=== PATIENT | male | born 1995 | race Caucasian/White ===

== ENCOUNTER 2018-01-03 21:32 | Emergency (ER) | payer SELFPAY ==
--- OUTSIDE RECORDS SUMMARY | 2018-01-03 21:35 | XMS REPORT | Clinical Summary ---
:1995 Author Organization [facility] Address [address] [place] [id number] Care Team Providers Name Role Phone Asked, No Pcp Primary Care Provider Unavailable Allergies No Known Allergies Current Medications Prescription Sig. Disp. Refills Start Date End Date Status sulfamethoxazole-tri Take 1 tablet by 14 tablet 0 10/21/2017 10/28/2017 methoprim (BACTRIM mouth every 12 DS) 800-160 mg per (twelve) hours tabletIndications: for 7 days Skin and Skin Indications: Skin Structure Infection and Skin Structure Infection. sertraline (ZOLOFT) Take 1 tablet 30 tablet 0 10/22/2017 11/21/2017 100 MG (100 mg total) by tabletIndications: mouth daily for Anxiety with 30 days Depression Indications: Anxiety with Depression. 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 10/19/2017 - Hospital Encounter Psychiatry Alexei Felix MD 10/21/2017 Jayesh Alford MD after 01/02/2017 Social History Tobacco Use Types Packs/Day Years Used Date Former Smoker Cigarettes Quit: 10/19/2016 Smokeless Tobacco: Never Used Tobacco Cessation: Counseling Given: No Alcohol Use Drinks/Week oz/Week Comments Yes 5 Cans of beer 3.0 daily Sex Assigned at Date Recorded Not on file Last Filed Vital Signs Vital Sign Reading Time Taken Blood Pressure 134/79 10/21/2017 6:15 AM 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 Pulse 79 10/21/2017 6:15 AM 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 Temperature 36.3 C (97.3 F) 10/21/2017 6:15 AM 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 Respiratory Rate 18 10/21/2017 6:15 AM 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 Oxygen Saturation 99% 10/21/2017 6:15 AM 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 Inhaled Oxygen Concentration - - Weight 64.2 kg (141 lb 8 oz) 10/19/2017 12:24 PM 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 Height 188 cm (6' 2") 10/19/2017 12:24 PM 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 Body Mass Index 18.17 10/19/2017 12:24 PM 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 Plan of Treatment Not on file Procedures Procedure Name Priority Date/Time Associated Diagnosis Comments CONSULT TO OSTOMY CARE Routine 10/20/2017 12:56 PM 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 NURSE after 01/02/2017 Results CBC with platelet and differential (10/20/2017 5:00 AM) Component Value Ref Range WBC 9.71 4.50 - 11.00 k/uL RBC 4.72 4.40 - 6.00 m/uL HGB 14.0 14.0 - 18.0 g/dL HCT 40.8 (L) 41.0 - 51.0 % MCV 86.4 82.0 - 100.0 fL MCH 29.7 27.0 - 34.0 pg MCHC 34.3 31.0 - 37.0 g/dL RDW - SD 40.1 37.0 - 55.0 fL MPV 11.9 8.8 - 13.2 fL Platelet count 179 150 - 400 k/uL Nucleated RBC 0.00 /100 WBC Neutrophils 52.6 39.0 - 69.0 % Lymphocytes 36.6 25.0 - 45.0 % Monocytes 9.2 0.0 - 10.0 % Eosinophils 1.1 0.0 - 5.0 % Basophils 0.4 0.0 - 1.0 % Immature granulocytes 0.1Comment: "Immature granulocytes" 0.0 - 1.0 % (promyelocytes, myelocytes, metamyelocytes) Specimen Performing Laboratory Blood [facility] DEPARTMENT OF PATHOLOGY AND GENOMIC MEDICINE [address] [place] [id number] Hemoglobin A1c (10/20/2017 5:00 AM) Component Value Ref Range Hemoglobin A1C 5.4 4.0 - 5.6 % Comment: HbA1c cutoffs for diagnosing diabetes: 4.0% - 5.6%=normal 5.7% - 6.4%=increased risk for diabetes (prediabetes) >=6.5%=diabetes Goals for glycemic control (ADA 2016) < 7.0%Target for non adults with diabetes. More or less stringent targets may be appropriate for individual patients. <7.5% Target for Children and adolescents with type 1 diabetes. A hemoglobin variant peak was detected in the A1c HPLC study. This peak did not seem to interfere with the A1c percentage calculation. However, if clinically indicated, hemoglobin electrophoresis should be ordered to further evaluate this finding. This variant may impact the red blood cell turnover rate. The clinical utility of Hemoglobin A1c measurement for monitoring long-term glucose control in the setting of hemoglobin variants has not been well characterized. Specimen Performing Laboratory Blood [facility] DEPARTMENT OF PATHOLOGY AND [address] [address] Estimated GFR (10/20/2017 4:00 AM) Component Value Ref Range GFR Non Af Amer 75 mL/min/1.73 m2 GFR Af Amer >90 mL/min/1.73 m2 Comment: Chronic kidney disease: <60 mL/min/1.73m2 Kidney failure: <15 mL/min/1.73m2 The estimated GFR is calculated from the IDMS-traceable Modification of Diet in Renal Disease Equation. The accuracy of the calculation is poor when the creatinine is normal. Calculated values >90 mL/min/1.73m2 are not reported. This equation has not been validated in children (<18 years), women, the elderly (>70 years), or ethnic groups other than Caucasians and Americans. Specimen Performing Laboratory Plasma specimen [facility] DEPARTMENT OF PATHOLOGY AND [address] [address] Thyroid stimulating hormone (10/20/2017 4:00 AM) Component Value Ref Range TSH 1.79 0.27 - 4.20 uIU/mL Specimen Performing Laboratory Plasma specimen [facility] DEPARTMENT OF PATHOLOGY AND [facility] MEDICINE [address] [place] [id number] Alcohol level, blood (10/20/2017 4:00 AM) Component Value Ref Range Alcohol None Detected mg/dL Comment: Normal None Detected Legal Intoxication in [place]80 mg/dL (0.08%) - Whole Blood Toxic Jedzdjuncrtpk307 mg/dL (0.2%) Potentially Ijgdx324 - 500 mg/dL (0.35 - 0.5%) Alcohol percent None Detected % Specimen Performing Laboratory Plasma specimen [facility] DEPARTMENT OF PATHOLOGY AND [address] [address] Lipid panel (10/20/2017 4:00 AM) Component Value Ref Range Cholesterol 126 <200 mg/dL Triglycerides 71 <150 mg/dL HDL cholesterol 66 >40 mg/dL LDL cholesterol 64Comment: Result obtained by direct LDL <100 mg/dL measurement Lipid panel interpretation SeeBelow Comment: Total Cholesterol (mg/dL) <200 Desirable 309-239Gcjoraoamd-zbtg >=240High Triglycerides (mg/dL) <150 Normal 130-207Syuenrhymw-rsxx 200-499High >=500Very high HDL Cholesterol (mg/dL) <40Low (male) <40Low (female) LDL Cholesterol (mg/dL) <100 Optimal 100-129Near or above optimal [phone]-iiej 160-189High >=190Very high Risk Catergories that modify LDL goals. Risk CatergoriesLDL goal (mg/dL) CHD and CHD risk equivalent<100 (10-year risk >20%) Multiple (2+) risk factors <130 (10-year risk=<20%) 0-1 risk factors <160 (<10-year risk) Defining levels of lipids in metabolic syndrome Triglycerides>=150 mg/dL HDL Cholesterol Men<40 mg/dL Women<40 mg/dL Non-HDL cholesterol is a second target for therapy in persons with high triglycerides (>=200 mg/dL) Specimen Performing Laboratory Plasma specimen [facility] DEPARTMENT OF PATHOLOGY AND GENOMIC MEDICINE [address] [place] [address] Comprehensive metabolic panel (10/20/2017 4:00 AM) Component Value Ref Range Sodium 141 135 - 148 mEq/L Potassium 3.9 3.5 - 5.0 mEq/L Chloride 101 98 - 112 mEq/L CO2 27 24 - 31 mEq/L Anion gap 13 7 - 15 mEq/L Comment: Starting from December , anion gap calculation no longer incorporates potassium. Please note the change. BUN 10 6 - 20 mg/dL Creatinine 1.2 0.7 - 1.2 mg/dL Glucose 102 (H) 65 - 99 mg/dL Calcium 9.7 8.3 - 10.2 mg/dL Protein 7.0 6.3 - 8.3 g/dL Comment: 4.6-7.0 g/dL 1 week 4.4-7.6 g/dL 7 months-1year5.1-7.3 g/dL 1-2 years5.6-7.5 g/dL >3 years6.0-8.0 g/dL 18-150 6.3-8.3 g/dL Albumin 4.1 3.5 - 5.0 g/dL A/G ratio 1.4 0.7 - 3.8 Alkaline phosphatase 60 40 - 129 U/L AST 20 10 - 50 U/L ALT 22 5 - 50 U/L Total bilirubin 0.9 0.0 - 1.2 mg/dL Specimen Performing Laboratory Plasma specimen [facility] DEPARTMENT OF PATHOLOGY AND GENOMIC MEDICINE [address] [place] [id number] ECG 12 lead (10/19/2017 9:58 PM) Component Value Ref Range Ventricular rate 65 Atrial rate 65 ME interval 120 QRSD interval 78 QT interval 382 QTC interval 397 QRS axis 1 43 T wave axis 28 EKG impression Normal sinus rhythm-Normal ECG-No previous ECGs available- Specimen Performing Laboratory [facility] [address] [place] [address] after 01/02/2017
--- OUTSIDE RECORDS SUMMARY | 2018-01-03 21:35 | XMS REPORT ---
:1995 [facility] Address [address] [place] [address] Care Team Providers Name Role Phone UNKNOWN, REFFERING Primary Care Provider Unavailable FLORECITA STAFFORD M.D. Unavailable Unavailable Problems This patient has no known problems. Allergies, Adverse Reactions, Alerts This patient has no known allergies or adverse reactions. Medications This patient has no known medications. Results Test Description Test Time Test Comments Text Results Atomic Results Result Comments Basic Metabolic Panel 2017-07-29 08:19:00 Test Item Value Reference Range Comments Sodium (test code=NA) 140 mmol/L 135-145 Potassium (test code=K) 3.9 mmol/L 3.5-5.1 Chloride (test code=CL) 99 mmol/L 98-105 Carbon Dioxide (test 26 mmol/L 22-29 code=CO2) Glucose (test code=GLU) 89 mg/dL 70-115 Blood Urea Nitrogen (test 14 mg/dL 6-20 code=BUN) Creatinine (test 1.3 mg/dL 0.7-1.2 code=CREAT) Calcium (test code=CA) 10.2 mg/dL 8.3-10.5 BUN/Creatinine Ratio (test 10.8 code=BCRATIO) Anion Gap (test code=AGAP) 15 mmol/L 7-16 Estimated GFR (test >60 mL/min/1.73m2 eGFR (estimated Glomerular code=GFR) Filtration Rate) is an estimated value,calculated from the patient's serum creatinine using the MDRD equation.It is NOT the patient's actual GFR. The eGFR provides a more clinicallyuseful measure of kidney disease than serum creatinine alone.This calculation takes sex and race into account, if the informationis provided. If the race is not provided, and the patient isAfrican-South Korean, multiply by 1.212. If sex is not provided, and thepatient is female, multiply by 0.742. Results for patients <18 years ofage have not been validated by the MDRD study and should be interpretedwith caution.eGFR Result Interpretation:eGFR > or=60 is in the Normal RangeeGFR < 60 may mean kidney diseaseeGFR < 15 may mean kidney failureRanges recommended by the National Kidney Foundation,http://nkdep.nih.g ov RPR, [id number] 12:15:00 Test Item Value Reference Range Comments RPR (test code=RPR) Non-Reactive Non-Reactive Lipid [id number] 11:22:00 Test Item Value Reference Range Comments Cholesterol (test 149 mg/dL 0-200 code=CHOL) Triglycerides (test 125 mg/dL 9-200 code=TRIG) HDL (test code=HDL) 51 mg/dL 40-60 Chol/HDL (test 2.9 Ratio 0.0-5.0 code=CHOLPHDL) LDL, Calculated (test 73 0-130 (NOTE)RISK OF HEART code=LDLC) DISEASEPublished by [place] Heart AssociationAnalyte Optimal Boderline Increased RiskCHOL <200 200-239 >240TRIG <150 150-199 >200HDL Male: >60 <40HDL Female: >60 <50LDL <100 130-159 >160LDL NEAR OPTIMAL IS 100-129 VLDL (test code=VLDL) 25 mg/dL 5-40 LDL/HDL (test code=LDLPHDL) 1 Thyroid Stimulating Hormone (TSH)2017-07-28 08:55:00 Test Item Value Reference Range Comments TSH (test code=TSH) 2.44 mIU/mL 0.270-4.200
[2018-01-03] MEDS ORDERED: LIDOCAINE 1% MPF 5 ML VIAL ONE (22:01)
--- NOTE | 2018-01-03 22:37 | ER ---
Nurse's Notes [facility] Name: Filiberto Barron Age: 22 yrs Sex: Male : 1995 Arrival Date: 01/03/2018 Time: 21:35 Bed 6 Private MD: Diagnosis: Laceration left calf Presentation: 01/03 21:40 Presenting complaint: Patient states: About an hour ago he tried jumping over a fence ea and got his left leg caught on the barbed wire. Transition of care: patient was not received from another setting of care. Complicating Factors: There are no complicating factors for this patient. Onset of symptoms was January 03, 2018. Initial Sepsis Screen: Does the patient meet any 2 criteria? No. Patient's initial sepsis screen is negative. Does the patient have a suspected source of infection? No. Patient's initial sepsis screen is negative. Care prior to arrival: None. 21:40 Method Of Arrival: Wheelchair ea 21:40 Acuity: FELI 3 ea Triage Assessment: 21:44 General: Appears uncomfortable, Behavior is calm, cooperative, appropriate for age. ea Pain: Complains of pain in left knee and left holt. Injury Description: Laceration sustained to left leg was sustained 1-2 hours ago. Historical: - Allergies: 21:43 No Known Allergies; ea - Home Meds: 21:43 Zoloft Oral [Active]; ea - PMHx: 21:43 Depression; ea - PSHx: 21:43 None; ea - Immunization history:: Adult Immunizations up to date, Last tetanus immunization: < 5 years ago reports he had vaccine less than 1 year ago. - Social history:: Smoking status: Patient/guardian denies using tobacco, Patient uses alcohol. Screenin:47 Abuse screen: Denies threats or abuse. Nutritional screening: No deficits noted. ea Tuberculosis screening: No symptoms or risk factors identified. Fall Risk None identified. Assessment: 21:45 General: Appears in no apparent distress. comfortable, Behavior is calm, cooperative, aa1 appropriate for age. General: Smells of alcohol. Pain: Denies pain. Neuro: Level of Consciousness is awake, alert, obeys commands, Oriented to person, place, time, situation, Moves all extremities. Full function Speech is normal. Cardiovascular: Heart tones S1 S2 present Rhythm is regular. Respiratory: Airway is patent Respiratory effort is even, unlabored, Respiratory pattern is regular, symmetrical. GI: No signs and/or symptoms were reported involving the gastrointestinal system. : No signs and/or symptoms were reported regarding the genitourinary system. EENT: No signs and/or symptoms were reported regarding the EENT system. Derm: Skin is intact, is healthy with good turgor, Skin is pink, warm \T\ dry. Musculoskeletal: Circulation, motion, and sensation intact. Capillary refill < 3 seconds, Range of motion: intact in all extremities. Injury Description: Laceration sustained to left holt is 0.5 to 2.5 cm long, bleeding moderately, was sustained 1-2 hours ago. is bleeding moderately a dressing was applied. 22:22 Reassessment: Patient appears in no apparent distress at this time. Patient and/or aa1 family updated on plan of care and expected duration. Pain level reassessed. Patient is alert, oriented x 3, equal unlabored respirations, skin warm/dry/pink. Awaiting MD for lac repair. 22:58 Reassessment: Patient and/or family updated on plan of care and expected duration. Pain ea level reassessed. Patient is alert, oriented x 3, equal unlabored respirations, skin warm/dry/pink. Discharge instructions given to patient, verbalized the understanding of instructions. Vital Signs: 20:40 BP 131 / 86; Pulse 82; Resp 18; Temp 97.9(O); Pulse Ox 100% on R/A; Weight 68.04 kg; ea Height 6 ft. 2 in. (187.96 cm); Pain 8/10; 22:00 BP 103 / 66; Pulse 61; Resp 16; Pulse Ox 98% on R/A; aa1 22:45 BP 110 / 71; Pulse 70; Resp 18; Temp 98(O); Pulse Ox 100% on R/A; Pain 3/10; ea 20:40 Body Mass Index 19.26 (68.04 kg, 187.96 cm) ea ED Course: 21:35 Patient arrived in ED. am2 21:40 Dalton Pedroza MD is Attending Physician. pkl 21:40 Patient has correct armband on for positive identification. Bed in low position. Call ea light in reach. 21:40 Arm band placed on right wrist. Patient placed in an exam room, on a stretcher, on ea pulse oximetry. 21:42 Triage completed. ea 21:55 Wound care: to laceration located on left holt was cleaned with Hibiclens, irrigated aa1 with normal saline, dressed with 4X4s, Patient tolerated well. 21:58 Cathy Sutton, RN is Primary Nurse. aa1 22:15 Patient did not have IV access during this emergency room visit. aa1 22:38 Assist provider with laceration repair on left leg Set up tray. Performed by Dalton Pedroza MD cb2 Dressed with 4X4s, Neosporin, Patient tolerated well. Administered Medications: 21:59 CANCELLED (tetanus current): Tetanus-Diphtheria Toxoid Adult 0.5 ml IM once aa1 22:15 Drug: Lidocaine (1 %) 1 application {Note: administered by provider.} Volume: 5 ml; ea Route: Infiltration; 22:45 Drug: KeFLEX 500 mg Route: PO; ea 22:50 Follow up: Response: No adverse reaction ea Outcome: 22:37 Discharge ordered by . tierney 23:02 Discharged to home ambulatory, with friend. aa1 23:02 Condition: good 23:02 Discharge instructions given to patient, friend, Instructed on discharge instructions, follow up and referral plans. medication usage, wound care, Demonstrated understanding of instructions, follow-up care, medications, wound care, Prescriptions given X 1. 23:02 Patient left the ED. aa1 Signatures: Cathy Sutton, RN RN aa1 Dalton Pedroza MD MD pkl Moreno, Amanda am2 Bulan, Christian cb2 Lily Andino RN RN ea
--- NOTE | 2018-01-03 22:38 | EDPHYS ---
Physician Documentation [facility] Name: Filiberto Barron Age: 22 yrs Sex: Male : 1995 Arrival Date: 01/03/2018 Time: 21:35 Bed 6 Private MD: ED Physician Dalton Pedroza HPI: 01/03 21:48 This 22 yrs old Male presents to ER via Wheelchair with complaints of pkl Laceration To Leg. 21:48 The patient presents with an injury, a laceration, 5 cm(s). The complaints affect the pkl left calf. Context: resulted from jumping over a fence and cut by lili wire. Onset: The symptoms/episode began/occurred just prior to arrival. Associated signs and symptoms: The patient has no apparent associated signs or symptoms. Historical: - Allergies: 21:43 No Known Allergies; ea - Home Meds: 21:43 Zoloft Oral [Active]; ea - PMHx: 21:43 Depression; ea - PSHx: 21:43 None; ea - Immunization history:: Adult Immunizations up to date, Last tetanus immunization: < 5 years ago reports he had vaccine less than 1 year ago. - Social history:: Smoking status: Patient/guardian denies using tobacco, Patient uses alcohol. ROS: 21:48 Eyes: Negative for injury, pain, redness, and discharge, ENT: Negative for injury, pkl pain, and discharge, Neck: Negative for injury, pain, and swelling, Cardiovascular: Negative for chest pain, palpitations, and edema, Respiratory: Negative for shortness of breath, cough, wheezing, and pleuritic chest pain, Abdomen/GI: Negative for abdominal pain, nausea, vomiting, diarrhea, and constipation, Back: Negative for injury and pain, : Negative for injury, bleeding, discharge, and swelling. 21:48 MS/extremity: Positive for laceration, of the left calf. 21:48 Neuro: Negative for altered mental status. 21:48 Psych: Negative for suicidal ideation. Exam: 21:48 Head/Face: Normocephalic, atraumatic. Eyes: Pupils equal round and reactive to light, pkl extra-ocular motions intact. Lids and lashes normal. Conjunctiva and sclera are non-icteric and not injected. Cornea within normal limits. Periorbital areas with no swelling, redness, or edema. ENT: Nares patent. No nasal discharge, no septal abnormalities noted. Tympanic membranes are normal and external auditory canals are clear. Oropharynx with no redness, swelling, or masses, exudates, or evidence of obstruction, uvula midline. Mucous membranes moist. Neck: Trachea midline, no thyromegaly or masses palpated, and no cervical lymphadenopathy. Supple, full range of motion without nuchal rigidity, or vertebral point tenderness. No Meningismus. Chest/axilla: Normal chest wall appearance and motion. Nontender with no deformity. No lesions are appreciated. Cardiovascular: Regular rate and rhythm with a normal S1 and S2. No gallops, murmurs, or rubs. Normal PMI, no JVD. No pulse deficits. Respiratory: Lungs have equal breath sounds bilaterally, clear to auscultation and percussion. No rales, rhonchi or wheezes noted. No increased work of breathing, no retractions or nasal flaring. Abdomen/GI: Soft, non-tender, with normal bowel sounds. No distension or tympany. No guarding or rebound. No evidence of tenderness throughout. Back: No spinal tenderness. No costovertebral tenderness. Full range of motion. Neuro: Awake and alert, GCS 15, oriented to person, place, time, and situation. Cranial nerves II-XII grossly intact. Motor strength 5/5 in all extremities. Sensory grossly intact. Cerebellar exam normal. Normal gait. 21:48 Musculoskeletal/extremity: Extremities: grossly normal except: noted in the left calf: laceration. Vital Signs: 20:40 BP 131 / 86; Pulse 82; Resp 18; Temp 97.9(O); Pulse Ox 100% on R/A; Weight 68.04 kg; ea Height 6 ft. 2 in. (187.96 cm); Pain 8/10; 22:00 BP 103 / 66; Pulse 61; Resp 16; Pulse Ox 98% on R/A; aa1 22:45 BP 110 / 71; Pulse 70; Resp 18; Temp 98(O); Pulse Ox 100% on R/A; Pain 3/10; ea 20:40 Body Mass Index 19.26 (68.04 kg, 187.96 cm) ea Laceration: 22:34 Wound Repair of 5cm ( 2.0in ) subcutaneous laceration to left calf. Minimal bleeding pkl noted.. Distal neuro/vascular/tendon intact. Anesthesia: Local anesthetic administered with 5 mls of 1% lidocaine. Wound prep: Extensive cleansing by me. Skin closed with 5 4-0 Prolene using simple sutures and sterile technique. Dressed with Bacitracin, 4x4's, pressure dressing. Patient tolerated well. MDM: 21:40 Patient medically screened. pkl 22:34 Data reviewed: vital signs, nurses notes. pkl 01/03 21:59 Order name: Suture Tray Setup; Complete Time: 22:02 aa1 Administered Medications: :59 CANCELLED (tetanus current): Tetanus-Diphtheria Toxoid Adult 0.5 ml IM once aa1 22:15 Drug: Lidocaine (1 %) 1 application {Note: administered by provider.} Volume: 5 ml; ea Route: Infiltration; 22:45 Drug: KeFLEX 500 mg Route: PO; ea 22:50 Follow up: Response: No adverse reaction ea Disposition: 01/03/18 22:37 Discharged to Home. Impression: Laceration left calf. - Condition is Stable. - Prescriptions for Keflex 500 mg Oral Capsule - take 1 capsule by ORAL route every 6 hours for 7 days; 28 capsule. - Medication Reconciliation Form, Thank You Letter, Antibiotic Education, Prescription Opioid Use form. - Follow up: Private Physician; When: 1 week; Reason: Wound Recheck, Staple/Suture removal, Re-evaluation by your physician. - Problem is new. - Symptoms have improved. Signatures: Cathy Sutton RN RN aa1 Dalton Pedroza MD MD pkLily Mason RN RN ea Corrections: (The following items were deleted from the chart) 21:47 Tetanus-Diphtheria Toxoid Adult 0.5 ml IM once ordered. pkl aa1
[2018-01-03] MEDS ORDERED: CEPHALEXIN 250 MG CAP ONE (22:43)
== END 2018-01-03 23:02 | disposition home or self-care (01) ==
LOC: ER 21:32
PROC: 0JQP0ZZ Repair Left Lower Leg Subcutaneous Tissue and Fascia, Open Approach (ICD-10-PCS; principal; 2018-01-03)
DX: S81.812A Laceration without foreign body, left lower leg, initial encounter (principal); W45.8XXA Other foreign body or object entering through skin, initial encounter; Y93.89 Activity, other specified; Y92.9 Unspecified place or not applicable; F32.9 Major depressive disorder, single episode, unspecified; Z23 Encounter for immunization
CPT/HCPCS: 99284

== ENCOUNTER 2018-01-19 15:19 | Emergency (ER) | payer SELFPAY ==
--- OUTSIDE RECORDS SUMMARY | 2018-01-19 15:21 | XMS REPORT | Clinical Summary ---
:1995 Author Organization [facility] Address [address] [place] [id number] Care Team Providers Name Role Phone Asked, [...] Type Specialty Care Team Description 10/21/2017 Documentation Club Former Shereen Ken LPC 10/19/2017 - Hospital Encounter Psychiatry Alexei Felix MD 10/21/2017 Jayesh Alford MD after 01/18/2017 Social History Tobacco Use Types Packs/Day Years Used Date Former Smoker Cigarettes Quit: 10/19/2016 Smokeless Tobacco: Never Used Tobacco Cessation: Counseling Given: No Alcohol Use Drinks/Week oz/Week Comments Yes 5 Cans of beer 3.0 daily Sex Assigned at Date Recorded Not on file Last Filed Vital Signs Vital Sign Reading Time Taken Blood Pressure 134/79 10/21/2017 6:15 AM GRAIN OPERATOR Pulse 79 10/21/2017 6:15 AM GRAIN OPERATOR Temperature 36.3 C (97.3 F) 10/21/2017 6:15 AM GRAIN OPERATOR Respiratory Rate 18 10/21/2017 6:15 AM GRAIN OPERATOR Oxygen Saturation 99% 10/21/2017 6:15 AM GRAIN OPERATOR Inhaled Oxygen Concentration - - Weight 64.2 kg (141 lb 8 oz) 10/19/2017 12:24 PM GRAIN OPERATOR Height 188 cm (6' 2") 10/19/2017 12:24 PM GRAIN OPERATOR Body Mass Index 18.17 10/19/2017 12:24 PM GRAIN OPERATOR Plan of Treatment Not on file Procedures Procedure Name Priority Date/Time Associated Diagnosis Comments CONSULT TO OSTOMY CARE Routine 10/20/2017 12:56 PM GRAIN OPERATOR NURSE after 01/18/2017 Results CBC with platelet and differential (10/20/2017 [...] (promyelocytes, myelocytes, metamyelocytes) Specimen Performing Laboratory Blood [facility] DEPARTMENT OF PATHOLOGY AND GENOMIC MEDICINE [address] [place] [id number] Hemoglobin A1c (10/20/2017 5:00 AM) Component Value [...] been well characterized. Specimen Performing Laboratory Blood [facility] DEPARTMENT OF PATHOLOGY AND [facility] MEDICINE [address] [place] [id number] Estimated GFR (10/20/2017 4:00 AM) Component Value [...] and Americans. Specimen Performing Laboratory Plasma specimen [facility] DEPARTMENT OF PATHOLOGY AND GENOMIC MEDICINE [address] [place] [id number] Thyroid stimulating hormone (10/20/2017 4:00 AM) Component Value Ref Range TSH 1.79 0.27 - 4.20 uIU/mL Specimen Performing Laboratory Plasma specimen [facility] DEPARTMENT OF PATHOLOGY AND GENOMIC MEDICINE [address] [place] [address] Alcohol level, blood (10/20/2017 4:00 AM) Component Value Ref Range Alcohol None Detected mg/dL Comment: Normal None Detected Legal Intoxication in [place]80 mg/dL (0.08%) - Whole Blood Toxic [id number] mg/dL (0.2%) Potentially [id number] - 500 mg/dL (0.35 - 0.5%) Alcohol percent None Detected % Specimen Performing Laboratory Plasma specimen [facility] DEPARTMENT OF PATHOLOGY AND GENOMIC MEDICINE [address] [place] [address]11 Lipid panel (10/20/2017 4:00 AM) Component Value Ref Range Cholesterol 126 <200 mg/dL Triglycerides 71 <150 mg/dL HDL cholesterol 66 >40 mg/dL LDL cholesterol 64Comment: Result obtained by direct LDL <100 mg/dL measurement Lipid panel interpretation SeeBelow Comment: Total Cholesterol (mg/dL) <200 Desirable 230-535Rwkxebokeh-ploi >=240High Triglycerides (mg/dL) <150 Normal [id number]-iygv 200-499High >=500Very high HDL Cholesterol (mg/dL) <40Low (male) <40Low (female) LDL Cholesterol (mg/dL) <100 Optimal 100-129Near or above optimal [phone]-jzzd 160-189High >=190Very high Risk Catergories that modify [...] (>=200 mg/dL) Specimen Performing Laboratory Plasma specimen [facility] DEPARTMENT OF PATHOLOGY AND GENOMIC MEDICINE [address] [place] [address] Comprehensive metabolic panel (10/20/2017 4:00 AM) Component [...] 1.2 mg/dL Specimen Performing Laboratory Plasma specimen [facility] DEPARTMENT OF PATHOLOGY AND GENOMIC MEDICINE [address] [place] [id number] ECG 12 lead (10/19/2017 9:58 PM) Component Value Ref Range Ventricular rate 65 Atrial rate 65 IL interval 120 QRSD interval 78 QT interval 382 QTC interval 397 QRS axis 1 43 T wave axis 28 EKG impression Normal sinus rhythm-Normal ECG-No previous ECGs available- Specimen Performing Laboratory [facility] [address] [place] [address] after 01/18/2017
--- OUTSIDE RECORDS SUMMARY | 2018-01-19 15:21 | XMS REPORT ---
:1995 [facility] Address [address] [place] [address] Care Team Providers Name Role Phone UNKNOWN, [...] (test 14 mg/dL 6-20 code=BUN) Creatinine (test code=CREAT) 1.3 mg/dL 0.7-1.2 Calcium (test code=CA) 10.2 mg/dL 8.3-10.5 BUN/Creatinine [...] race is not provided, and the patient isAfrican-Malagasy, multiply by 1.212. If sex is not provided, and thepatient is female, multiply by 0.742. Results for patients <18 years ofage have not been validated by the MDRD study and should be interpretedwith caution.eGFR Result Interpretation:eGFR > or=60 is in the Normal RangeeGFR < 60 may mean kidney diseaseeGFR < 15 may mean kidney failureRanges recommended by the National Kidney Foundation,http://nkdep.nih.go v RPR, [id number] 12:15:00 Test Item Value Reference Range Comments RPR (test code=RPR) Non-Reactive Non-Reactive Lipid [id number] 11:22:00 Test Item Value Reference Range Comments Cholesterol (test 149 mg/dL 0-200 code=CHOL) Triglycerides (test 125 mg/dL 9-200 code=TRIG) HDL (test code=HDL) 51 mg/dL 40-60 Chol/HDL (test 2.9 Ratio 0.0-5.0 code=CHOLPHDL) LDL, Calculated (test 73 0-130 (NOTE)RISK OF HEART code=LDLC) DISEASEPublished by Malagasy Heart AssociationAnalyte Optimal Boderline Increased RiskCHOL <200 200-239 >240TRIG <150 150-199 >200HDL Male: >60 <40HDL Female: >60 <50LDL <100 130-159 >160LDL NEAR OPTIMAL IS 100-129 VLDL (test code=VLDL) 25 mg/dL 5-40 LDL/HDL (test code=LDLPHDL) 1 Thyroid Stimulating Hormone (TSH)2017-07-28 08:55:00 Test Item Value Reference Range Comments TSH (test code=TSH) 2.44 mIU/mL 0.270-4.200
--- NOTE | 2018-01-19 15:43 | ER ---
Nurse's Notes [facility] Name: Filiberto Barron Age: 22 yrs Sex: Male : 1995 Arrival Date: 01/19/2018 Time: 15:22 Bed 9 Private MD: Diagnosis: Encounter for removal of sutures Presentation: 01/19 15:23 Presenting complaint: Patient states: Needs stitches to left lower leg removed. Placed aj 12 days ago. Transition of care: patient was not received from another setting of care. Onset of symptoms was December 30, 2017. Initial Sepsis Screen: Does the patient meet any 2 criteria? No. Patient's initial sepsis screen is negative. Does the patient have a suspected source of infection? No. Patient's initial sepsis screen is negative. Care prior to arrival: None. 15:23 Method Of Arrival: Ambulatory 15:23 Acuity: FELI 5 aj Triage Assessment: 15:24 General: Appears in no apparent distress. comfortable, Behavior is calm, cooperative, aj appropriate for age. Pain: Denies pain. Neuro: Level of Consciousness is awake, alert, obeys commands, Oriented to person, place, time, situation, Appropriate for age. Respiratory: Airway is patent Respiratory effort is even, unlabored, Respiratory pattern is regular, symmetrical. Derm: Skin is intact, is healthy with good turgor, Skin is pink, warm \T\ dry. normal. Injury Description: Repaired laceration. Historical: - Allergies: 15:24 No Known Allergies; aj - Home Meds: 15:24 Zoloft Oral [Active]; aj - PMHx: 15:24 Depression; suicidal ideation; aj - PSHx: 15:24 None; aj - Immunization history:: Adult Immunizations up to date. - Social history:: Smoking status: Patient/guardian denies using tobacco. Screenin:31 Abuse screen: Denies threats or abuse. Denies injuries from another. Nutritional ed1 screening: No deficits noted. Tuberculosis screening: No symptoms or risk factors identified. Fall Risk None identified. Assessment: 15:31 General: Appears in no apparent distress. Behavior is calm, cooperative. Pain: Denies ed1 pain. Neuro: Level of Consciousness is awake, alert, obeys commands, Oriented to person, place, time, situation. Cardiovascular: Denies chest pain, Heart tones S1 S2 present. Respiratory: Airway is patent Respiratory effort is even, unlabored, Respiratory pattern is regular, symmetrical, Breath sounds are clear bilaterally. GI: No signs and/or symptoms were reported involving the gastrointestinal system. : No signs and/or symptoms were reported regarding the genitourinary system. EENT: No signs and/or symptoms were reported regarding the EENT system. Derm: healed laceration with sutures in place. Musculoskeletal: Circulation, motion, and sensation intact. Range of motion: intact in all extremities. 15:31 Reassessment: I agree with assessment completed by DAVIN Ascencio . aa5 Vital Signs: 15:24 BP 138 / 81; Pulse 96; Resp 16; Temp 98.3; Pulse Ox 99% on R/A; Weight 68.04 kg; Height aj 6 ft. 0 in. (182.88 cm); 15:24 Body Mass Index 20.34 (68.04 kg, 182.88 cm) aj ED Course: 15:22 Patient arrived in ED. sb2 15:23 Triage completed. aj 15:24 Arm band placed on right wrist. Patient placed in an exam room. aj 15:29 Linnette Treviño FNP-C is PHCP. kb 15:29 Hari Shane MD is Attending Physician. kb 15:30 Silva Lema LVN is Primary Nurse. ed1 15:31 Patient has correct armband on for positive identification. Bed in low position. Call ed1 light in reach. 15:44 No provider procedures requiring assistance completed. Patient did not have IV access ed1 during this emergency room visit. Administered Medications: No medications were administered Outcome: 15:43 Discharge ordered by MD. kb 15:44 Discharged to home ambulatory. ed1 15:44 Condition: good 15:44 Discharge instructions given to Pt left before receiving discharge instructions 15:45 Patient left the ED. ed1 Signatures: Linnette Treviño FNP-C FNP-Taniya Cabrera RN RN Barbara Myrick RN RN aa5 Silva Lema LVN LVN ed1 Jessica Leon sb2
--- NOTE | 2018-01-19 15:43 | EDPHYS ---
Physician Documentation [facility] Name: Filiberto Barron Age: 22 yrs Sex: Male : 1995 Arrival Date: 01/19/2018 Time: 15:22 Bed 9 Private MD: ED Physician Hari Shane HPI: 01/19 15:38 This 22 yrs old Male presents to ER via Ambulatory with complaints of Suture kb Removal. 15:38 The patient has sutures on the left holt. Previous treatment: The patient was initially kb treated 16 day(s) ago, the care was rendered at [facility], Treatment type: The patient's original treatment included sutures. Sutures/chaparrita progress: The patient has no c/o's. The wound is well-healing with no redness, swelling, discharge, or dehiscence reported. The patient has not experienced similar symptoms in the past. The patient has been recently seen at the [facility] Emergency Department, a couple of weeks ago. Historical: - Allergies: 15:24 No Known Allergies; aj - Home Meds: 15:24 Zoloft Oral [Active]; aj - PMHx: 15:24 Depression; suicidal ideation; - PSHx: 15:24 None; aj - Immunization history:: Adult Immunizations up to date. - Social history:: Smoking status: Patient/guardian denies using tobacco. ROS: 15:38 Constitutional: Negative for fever, chills, and weight loss, Cardiovascular: Negative kb for chest pain, palpitations, and edema, Respiratory: Negative for shortness of breath, cough, wheezing, and pleuritic chest pain, Abdomen/GI: Negative for abdominal pain, nausea, vomiting, diarrhea, and constipation, MS/Extremity: Negative for injury and deformity, Neuro: Negative for headache, weakness, numbness, tingling, and seizure. 15:38 Skin: Positive for laceration(s), of the left holt. Exam: 15:38 Constitutional: This is a well developed, well nourished patient who is awake, alert, kb and in no acute distress. Head/Face: Normocephalic, atraumatic. Chest/axilla: Normal chest wall appearance and motion. Nontender with no deformity. No lesions are appreciated. Cardiovascular: Regular rate and rhythm with a normal S1 and S2. No gallops, murmurs, or rubs. Normal PMI, no JVD. No pulse deficits. Respiratory: Lungs have equal breath sounds bilaterally, clear to auscultation and percussion. No rales, rhonchi or wheezes noted. No increased work of breathing, no retractions or nasal flaring. Abdomen/GI: Soft, non-tender, with normal bowel sounds. No distension or tympany. No guarding or rebound. No evidence of tenderness throughout. MS/ Extremity: Pulses equal, no cyanosis. Neurovascular intact. Full, normal range of motion. Neuro: Awake and alert, GCS 15, oriented to person, place, time, and situation. Cranial nerves II-XII grossly intact. Motor strength 5/5 in all extremities. Sensory grossly intact. Cerebellar exam normal. Normal gait. 15:38 Skin: Wound recheck: Suture laceration closure: the wound is healing well, no evidence of dehiscence, no drainage, no erythema, no swelling. Vital Signs: 15:24 BP 138 / 81; Pulse 96; Resp 16; Temp 98.3; Pulse Ox 99% on R/A; Weight 68.04 kg; Height aj 6 ft. 0 in. (182.88 cm); 15:24 Body Mass Index 20.34 (68.04 kg, 182.88 cm) Procedures: 15:40 Suture/Staple removal: Removed 5 sutures, from left holt, site appears well healed, kb dressed with Neosporin, Patient tolerated well. MDM: 15:30 Patient medically screened. kb 15:40 Data reviewed: vital signs, nurses notes. Data interpreted: Pulse oximetry: on room air kb is 99 %. Interpretation: normal. Counseling: I had a detailed discussion with the patient and/or guardian regarding: the historical points, exam findings, and any diagnostic results supporting the discharge/admit diagnosis, the need for outpatient follow up, a family practitioner, to return to the emergency department if symptoms worsen or persist or if there are any questions or concerns that arise at home. Administered Medications: No medications were administered Disposition: 01/20 10:51 Co-signature as Attending Physician, Hari Shane MD I agree with the assessment and feliberto plan of care. Disposition: 01/19/18 15:43 Discharged to Home. Impression: Encounter for removal of sutures. - Condition is Stable. - Discharge Instructions: Suture Removal, Care After. - Medication Reconciliation Form, Thank You Letter, Antibiotic Education, Prescription Opioid Use form. - Follow up: Emergency Department; When: As needed; Reason: Worsening of condition. Follow up: Private Physician; When: 2 - 3 days; Reason: Recheck today's complaints, Continuance of care, Re-evaluation by your physician. Signatures: Linnette Treviño, ALETA-C MIXING ENGINEER-Taniya Cabrera RN RN aj Anderson, Corey, MD MD cha Riggs, Erika, PUBLIC FINANCE SPECIALIST PUBLIC FINANCE SPECIALIST ed1 Corrections: (The following items were deleted from the chart) 01/19 15:45 15:43 01/19/2018 15:43 Discharged to Home. Impression: Encounter for removal of ed1 sutures. Condition is Stable. Forms are Medication Reconciliation Form, Thank You Letter, Antibiotic Education, Prescription Opioid Use. Follow up: Emergency Department; When: As needed; Reason: Worsening of condition. Follow up: Private Physician; When: 2 - 3 days; Reason: Recheck today's complaints, Continuance of care, Re-evaluation by your physician. kb
== END 2018-01-19 15:45 | disposition home or self-care (01) ==
LOC: ER 15:19
DX: Z48.02 Encounter for removal of sutures (principal); F32.9 Major depressive disorder, single episode, unspecified
CPT/HCPCS: 99281

== ENCOUNTER 2018-05-04 20:36 | Emergency (ER) | payer SELFPAY ==
--- OUTSIDE RECORDS SUMMARY | 2018-05-04 20:38 | XMS REPORT | Clinical Summary ---
:1995 Author Organization [facility] Address [address] [place] [id number] Care Team Providers Name Role Phone Asked, [...] Type Specialty Care Team Description 10/21/2017 Documentation Collar Tacker Shereen Ken LPC 10/19/2017 - Hospital Encounter Psychiatry Alexei Felix MD 10/21/2017 Jayesh Alford MD after 05/03/2017 Social History Tobacco Use Types Packs/Day Years Used Date Former Smoker Cigarettes Quit: 10/19/2016 Smokeless Tobacco: Never Used Tobacco Cessation: Counseling Given: No Alcohol Use Drinks/Week oz/Week Comments Yes 5 Cans of beer 3.0 daily Sex Assigned at Date Recorded Not on file Last Filed Vital Signs Vital Sign Reading Time Taken Blood Pressure 134/79 10/21/2017 6:15 AM TRAFFIC MANAGER Pulse 79 10/21/2017 6:15 AM TRAFFIC MANAGER Temperature 36.3 C (97.3 F) 10/21/2017 6:15 AM TRAFFIC MANAGER Respiratory Rate 18 10/21/2017 6:15 AM TRAFFIC MANAGER Oxygen Saturation 99% 10/21/2017 6:15 AM TRAFFIC MANAGER Inhaled Oxygen Concentration - - Weight 64.2 kg (141 lb 8 oz) 10/19/2017 12:24 PM TRAFFIC MANAGER Height 188 cm (6' 2") 10/19/2017 12:24 PM TRAFFIC MANAGER Body Mass Index 18.17 10/19/2017 12:24 PM TRAFFIC MANAGER Plan of Treatment Not on file Procedures Procedure Name Priority Date/Time Associated Comments Diagnosis CONSULT TO OSTOMY CARE Routine 10/20/2017 12:56 NURSE PM TRAFFIC MANAGER HC COMPLETE BLD COUNT Routine 10/20/2017 5:00 Results for this W/AUTO DIFF AM TRAFFIC MANAGER procedure are in the results section. HEMOGLOBIN A1C Routine 10/20/2017 5:00 Results for this AM TRAFFIC MANAGER procedure are in the results section. ESTIMATED GFR Routine 10/20/2017 4:00 Results for this AM TRAFFIC MANAGER procedure are in the results section. ALCOHOL LEVEL, BLOOD Routine 10/20/2017 4:00 Results for this AM TRAFFIC MANAGER procedure are in the results section. THYROID STIMULATING Routine 10/20/2017 4:00 Results for this HORMONE AM TRAFFIC MANAGER procedure are in the results section. LIPID PANEL Routine 10/20/2017 4:00 Results for this AM TRAFFIC MANAGER procedure are in the results section. COMPREHENSIVE Routine 10/20/2017 4:00 Results for this METABOLIC PANEL AM TRAFFIC MANAGER procedure are in the results section. ECG 12-LEAD STAT 10/19/2017 9:58 Results for this PM TRAFFIC MANAGER procedure are in the results section. after 05/03/2017 Results CBC with platelet and differential (10/20/2017 5:00 AM) WBC 9.71 4.50 - 11.00 k/uL [facility] DEPARTMENT OF PATHOLOGY AND GENOMIC MEDICINE RBC 4.72 4.40 - 6.00 m/uL [facility] DEPARTMENT OF PATHOLOGY AND GENOMIC MEDICINE HGB 14.0 14.0 - 18.0 g/dL [facility] DEPARTMENT OF PATHOLOGY AND GENOMIC MEDICINE HCT 40.8 (L) 41.0 - 51.0 % [facility] DEPARTMENT OF PATHOLOGY AND GENOMIC MEDICINE MCV 86.4 82.0 - 100.0 fL [facility] DEPARTMENT OF PATHOLOGY AND GENOMIC MEDICINE MCH 29.7 27.0 - 34.0 pg [facility] DEPARTMENT OF PATHOLOGY AND GENOMIC MEDICINE MCHC 34.3 31.0 - 37.0 g/dL [facility] DEPARTMENT OF PATHOLOGY AND GENOMIC MEDICINE RDW - SD 40.1 37.0 - 55.0 fL [facility] DEPARTMENT OF PATHOLOGY AND GENOMIC MEDICINE MPV 11.9 8.8 - 13.2 fL [facility] DEPARTMENT OF PATHOLOGY AND GENOMIC MEDICINE Platelet count 179 150 - 400 k/uL [facility] DEPARTMENT OF PATHOLOGY AND GENOMIC MEDICINE Nucleated RBC 0.00 /100 WBC [facility] DEPARTMENT OF PATHOLOGY AND GENOMIC MEDICINE Neutrophils 52.6 39.0 - 69.0 % [facility] DEPARTMENT OF PATHOLOGY AND GENOMIC MEDICINE Lymphocytes 36.6 25.0 - 45.0 % [facility] DEPARTMENT OF PATHOLOGY AND GENOMIC MEDICINE Monocytes 9.2 0.0 - 10.0 % [facility] DEPARTMENT OF PATHOLOGY AND GENOMIC MEDICINE Eosinophils 1.1 0.0 - 5.0 % [facility] DEPARTMENT OF PATHOLOGY AND GENOMIC MEDICINE Basophils 0.4 0.0 - 1.0 % [facility] DEPARTMENT OF PATHOLOGY AND GENOMIC MEDICINE Immature granulocytes 0.1Comment: 0.0 - 1.0 % [facility] DEPARTMENT OF "Immature PATHOLOGY AND GENOMIC granulocytes" MEDICINE (promyelocytes, myelocytes, metamyelocytes) Specimen Blood Performing Organization Address City/[facility] Phone Number [facility] DEPARTMENT OF PATHOLOGY AND [address] [place] [id number] [facility] Hemoglobin A1c (10/20/2017 5:00 AM) Hemoglobin A1C 5.4 4.0 - 5.6 % [facility] DEPARTMENT OF Comment: PATHOLOGY AND GENOMIC HbA1c cutoffs for diagnosing diabetes: MEDICINE 4.0% - 5.6%=normal 5.7% - 6.4%=increased risk [...] variants has not been well characterized. Specimen Blood Performing Organization Address City/[facility] Phone Number [facility] DEPARTMENT OF PATHOLOGY AND [address] [place] [id number] simplify[facility] Estimated GFR (10/20/2017 4:00 AM) GFR Non Af Amer 75 mL/min/1.73 m2 [facility] DEPARTMENT OF PATHOLOGY AND GENOMIC MEDICINE GFR Af Amer >90 mL/min/1.73 m2 [facility] DEPARTMENT OF Comment: PATHOLOGY AND GENOMIC Chronic kidney disease: <60 mL/min/1.73m2 MEDICINE Kidney failure: <15 mL/min/1.73m2 The estimated GFR is calculated from the IDMS-traceable Modification of Diet in Renal Disease Equation. The accuracy of the calculation is poor when the creatinine is normal. Calculated values >90 mL/min/1.73m2 are not reported. This equation has not been validated in children (<18 years), women, the elderly (>70 years), or ethnic groups other than Caucasians and Americans. Specimen Plasma specimen Performing Organization Address City/[facility] Phone Number [facility] DEPARTMENT OF PATHOLOGY AND [address] [place] [address] Thyroid stimulating hormone (10/20/2017 4:00 AM) TSH 1.79 0.27 - 4.20 uIU/mL [facility] DEPARTMENT OF PATHOLOGY AND GENOMIC MEDICINE Specimen Plasma specimen Performing Organization Address [facility] Phone Number [facility] DEPARTMENT OF PATHOLOGY AND [address] [place], [place] [id number] [facility] Alcohol level, blood (10/20/2017 4:00 AM) Alcohol None Detected mg/dL [facility] DEPARTMENT OF PATHOLOGY Comment: AND GENOMIC MEDICINE Normal None Detected Legal Intoxication in [place]80 mg/dL (0.08%) - Whole Blood Toxic Dinotgarqgxbi632 mg/dL (0.2%) Potentially Sueov872 - 500 mg/dL (0.35 - 0.5%) Alcohol percent None Detected % [facility] DEPARTMENT OF PATHOLOGY AND GENOMIC MEDICINE Specimen Plasma specimen Performing Organization Address [facility] Phone Number [facility] DEPARTMENT OF PATHOLOGY AND [address] [place] [phone] [facility] Lipid panel (10/20/2017 4:00 AM) Cholesterol 126 <200 mg/dL [facility] DEPARTMENT OF PATHOLOGY AND GENOMIC MEDICINE Triglycerides 71 <150 mg/dL [facility] DEPARTMENT OF PATHOLOGY AND GENOMIC MEDICINE HDL cholesterol 66 >40 mg/dL [facility] DEPARTMENT OF PATHOLOGY AND GENOMIC MEDICINE LDL cholesterol 64Comment: Result <100 mg/dL [facility] DEPARTMENT OF obtained by direct LDL PATHOLOGY AND GENOMIC measurement MEDICINE Lipid panel interpretation SeeBelow [facility] DEPARTMENT OF Comment: PATHOLOGY AND GENOMIC Total Cholesterol (mg/dL) MEDICINE <200 Desirable 410-724Zrkhpdnjcv-ecki >=240High Triglycerides (mg/dL) <150 Normal 213-282Vuukujujcd-cdvr 200-499High >=500Very high HDL Cholesterol (mg/dL) <40Low (male) <40Low (female) LDL Cholesterol (mg/dL) <100 Optimal 100-129Near or above optimal 016-600Pcnhlkynte-vupu 160-189High >=190Very high Risk Catergories that modify [...] persons with high triglycerides (>=200 mg/dL) Specimen Plasma specimen Performing Organization Address City/State/Zipcode Phone Number [facility] DEPARTMENT OF PATHOLOGY AND [address] [place] [address] [facility] Comprehensive metabolic panel (10/20/2017 4:00 AM) Sodium 141 135 - 148 mEq/L [facility] DEPARTMENT OF PATHOLOGY AND GENOMIC MEDICINE Potassium 3.9 3.5 - 5.0 mEq/L [facility] DEPARTMENT OF PATHOLOGY AND GENOMIC MEDICINE Chloride 101 98 - 112 mEq/L [facility] DEPARTMENT OF PATHOLOGY AND GENOMIC MEDICINE CO2 27 24 - 31 mEq/L [facility] DEPARTMENT OF PATHOLOGY AND GENOMIC MEDICINE Anion gap 13 7 - 15 mEq/L [facility] DEPARTMENT OF Comment: PATHOLOGY AND GENOMIC Starting from December , anion gap calculation MEDICINE no longer incorporates potassium. Please note the change. BUN 10 6 - 20 mg/dL [facility] DEPARTMENT OF PATHOLOGY AND GENOMIC MEDICINE Creatinine 1.2 0.7 - 1.2 mg/dL [facility] DEPARTMENT OF PATHOLOGY AND GENOMIC MEDICINE Glucose 102 (H) 65 - 99 mg/dL [facility] DEPARTMENT OF PATHOLOGY AND GENOMIC MEDICINE Calcium 9.7 8.3 - 10.2 mg/dL [facility] DEPARTMENT OF PATHOLOGY AND GENOMIC MEDICINE Protein 7.0 6.3 - 8.3 g/dL [facility] DEPARTMENT OF Comment: PATHOLOGY AND GENOMIC [place] 4.6-7.0 g/dL MEDICINE 1 week 4.4-7.6 g/dL 7 months-1year5.1-7.3 g/dL 1-2 years5.6-7.5 g/dL >3 years6.0-8.0 g/dL 18-150 6.3-8.3 g/dL Albumin 4.1 3.5 - 5.0 g/dL [facility] DEPARTMENT OF PATHOLOGY AND GENOMIC MEDICINE A/G ratio 1.4 0.7 - 3.8 [facility] DEPARTMENT OF PATHOLOGY AND GENOMIC MEDICINE Alkaline phosphatase 60 40 - 129 U/L [facility] DEPARTMENT OF PATHOLOGY AND GENOMIC MEDICINE AST 20 10 - 50 U/L [facility] DEPARTMENT OF PATHOLOGY AND GENOMIC MEDICINE ALT 22 5 - 50 U/L [facility] DEPARTMENT OF PATHOLOGY AND GENOMIC MEDICINE Total bilirubin 0.9 0.0 - 1.2 mg/dL [facility] DEPARTMENT OF PATHOLOGY AND GENOMIC MEDICINE Specimen Plasma specimen Performing Organization Address City/[facility] Phone Number [facility] DEPARTMENT OF PATHOLOGY AND [address] [place] [address] [facility] ECG 12 lead (10/19/2017 9:58 PM) Ventricular rate 65 HM MUSE Atrial rate 65 [facility] MUSE PA interval 120 [facility] MUSE QRSD interval 78 HM MUSE QT interval 382 [facility] MUSE QTC interval 397 [facility] MUSE QRS axis 1 43 HM MUSE T wave axis 28 [facility] MUSE EKG impression Normal sinus rhythm-Normal ECG-No previous [facility] MUSE ECGs available- Performing Organization Address City/[facility] Phone Number [facility] [address] [place] [address] after 05/03/2017
--- OUTSIDE RECORDS SUMMARY | 2018-05-04 20:38 | XMS REPORT ---
:1995 [facility] Address [address] [place] [address] Care Team Providers Name Role Phone UNKNOWN, [...] race is not provided, and the patient isAfrican-Wallisian, multiply by 1.212. If sex is not provided, and thepatient is female, multiply by 0.742. Results for patients <18 years ofage have not been validated by the MDRD study and should be interpretedwith caution.eGFR Result Interpretation:eGFR > or=60 is in the Normal RangeeGFR < 60 may mean kidney diseaseeGFR < 15 may mean kidney failureRanges recommended by the National Kidney Foundation,http://nkdep.nih.go v RPR, [id number] 12:15:00 Test Item Value Reference Range Comments RPR (test code=RPR) Non-Reactive Non-Reactive Lipid [id number] 11:22:00 Test Item Value Reference Range Comments Cholesterol (test 149 mg/dL 0-200 code=CHOL) Triglycerides (test 125 mg/dL 9-200 code=TRIG) HDL (test code=HDL) 51 mg/dL 40-60 Chol/HDL (test 2.9 Ratio 0.0-5.0 code=CHOLPHDL) LDL, Calculated (test 73 0-130 (NOTE)RISK OF HEART code=LDLC) DISEASEPublished by Wallis[place] Heart AssociationAnalyte Optimal Boderline Increased RiskCHOL <200 200-239 >240TRIG <150 150-199 >200HDL Male: >60 <40HDL Female: >60 <50LDL <100 130-159 >160LDL NEAR OPTIMAL IS 100-129 VLDL (test code=VLDL) 25 mg/dL 5-40 LDL/HDL (test code=LDLPHDL) 1 Thyroid Stimulating Hormone (TSH)2017-07-28 08:55:00 Test Item Value Reference Range Comments TSH (test code=TSH) 2.44 mIU/mL 0.270-4.200
[2018-05-04] MEDS ORDERED: LIDOCAINE 1% MPF 5 ML VIAL ONE (21:11)
--- NOTE | 2018-05-04 23:44 | ER ---
Nurse's Notes [facility] Name: Filiberto Barron Age: 22 yrs Sex: Male : 1995 Arrival Date: 05/04/2018 Time: 20:36 Bed 20 Private MD: Diagnosis: Laceration without foreign body, left lower leg;Laceration without foreign body, right thigh;Laceration without foreign body, left thigh Presentation: 05/04 20:57 Presenting complaint: Patient states: Patient states " I jumped a fence this morning ea and cut my legs up". Transition of care: patient was not received from another setting of care. Onset of symptoms was May 04, 2018. Risk Assessment: Do you want to hurt yourself or someone else? Patient reports no desire to harm self or others. Initial Sepsis Screen: Does the patient meet any 2 criteria? No. Patient's initial sepsis screen is negative. Does the patient have a suspected source of infection? No. Patient's initial sepsis screen is negative. Care prior to arrival: None. 20:57 Method Of Arrival: Ambulatory ea 20:57 Acuity: FELI 3 ea Triage Assessment: 21:00 General: Appears in no apparent distress. Behavior is calm, cooperative, appropriate ea for age. Pain: Denies pain. Injury Description: linear cuts up right and left leg. Historical: - Allergies: 21:00 No Known Allergies; ea - Home Meds: 21:00 Zoloft Oral [Active]; ea - PMHx: 21:00 Depression; suicidal ideation; ea - PSHx: 21:00 None; ea - Immunization history:: Adult Immunizations up to date. - Social history:: Smoking status: Patient/guardian denies using tobacco. - Ebola Screening: : No symptoms or risks identified at this time. Screenin:02 Abuse screen: Denies threats or abuse. Nutritional screening: No deficits noted. ea Tuberculosis screening: No symptoms or risk factors identified. Fall Risk None identified. Assessment: 21:00 General: Appears uncomfortable, Behavior is calm, cooperative, appropriate for age. ea Pain: Denies pain. Neuro: Level of Consciousness is awake, alert, obeys commands, Oriented to person, place, time, situation. Cardiovascular: Heart tones S1 S2 present Patient's skin is warm and dry. Respiratory: Airway is patent Respiratory effort is even, unlabored, Respiratory pattern is regular, symmetrical, Breath sounds are clear bilaterally. GI: Abdomen is non-distended, Bowel sounds present X 4 quads. : No signs and/or symptoms were reported regarding the genitourinary system. Derm:. 22:15 Reassessment: Patient and/or family updated on plan of care and expected duration. Pain ea level reassessed. Patient is alert, oriented x 3, equal unlabored respirations, skin warm/dry/pink. 23:15 Reassessment: Patient and/or family updated on plan of care and expected duration. Pain ea level reassessed. Patient is alert, oriented x 3, equal unlabored respirations, skin warm/dry/pink. 23:51 Reassessment: Patient and/or family updated on plan of care and expected duration. Pain ea level reassessed. Patient is alert, oriented x 3, equal unlabored respirations, skin warm/dry/pink. Discharge instructions given to patient, verbalized the understanding of instruction. Vital Signs: 21:00 BP 123 / 70; Pulse 91; Resp 18; Temp 98.7; Pulse Ox 98% ; Weight 70.31 kg; Height 6 ft. ea 2 in. (187.96 cm); Pain 0/10; 22:00 BP 121 / 78; Pulse 70; Resp 18; Pulse Ox 100% on R/A; ea 23:16 BP 124 / 77; Pulse 73; Resp 18; Pulse Ox 100% on R/A; ea 21:00 Body Mass Index 19.90 (70.31 kg, 187.96 cm) ea ED Course: 20:36 Patient arrived in ED. ds1 20:41 Cem Carter PA is PHCP. jr8 20:41 Lc Wolff MD is Attending Physician. jr8 20:57 Lily Andino RN is Primary Nurse. ea 20:59 Triage completed. ea 21:02 Patient has correct armband on for positive identification. Bed in low position. Call ea light in reach. Side rails up X2. 21:02 Arm band placed on right wrist. Patient placed in an exam room, on a stretcher. ea 23:14 Assist provider with laceration repair on right leg and left leg that was between 2.6 ea to 7.5 cm using sutures. Set up tray. Performed by Cem VILLASEÑOR Dressed with Neosporin, Patient tolerated well. 23:53 Patient did not have IV access during this emergency room visit. ea Administered Medications: 23:16 Drug: Lidocaine (1 %) 1 vials {Note: by provider.} Volume: 20 ml; Route: Infiltration; ea Outcome: 23:44 Discharge ordered by MD. bella 23:52 Discharged to home ambulatory, with significant other. ea 23:52 Condition: improved 23:52 Discharge instructions given to patient, Instructed on discharge instructions, follow up and referral plans. medication usage, Demonstrated understanding of instructions, follow-up care, medications, Prescriptions given X 2. 23:54 Patient left the ED. ea Signatures: Love Doran ds1 Cem Carter PA PA jr8 Lily Andino RN RN jean
--- NOTE | 2018-05-04 23:44 | EDPHYS ---
Physician Documentation [facility] Name: Filiberto Barron Age: 22 yrs Sex: Male : 1995 Arrival Date: 05/04/2018 Time: 20:36 Bed 20 Private MD: ED Physician Lc Wolff HPI: 05/04 21:25 This 22 yrs old Male presents to ER via Ambulatory with complaints of jr8 Lacerations - LEG. 21:25 Patient stated that he was having a bad day and cut himself multiple times on both of jr8 his legs. Stated that he cuts so he does not become suicidal. History of depression and suicidal ideations in the past. Denies SI/HI currently . Severity of symptoms: At their worst the symptoms were moderate in the emergency department the symptoms are unchanged. The patient has experienced similar episodes in the past, several times. The patient has not recently seen a physician. Historical: - Allergies: 21:00 No Known Allergies; ea - Home Meds: 21:00 Zoloft Oral [Active]; ea - PMHx: 21:00 Depression; suicidal ideation; ea - PSHx: 21:00 None; ea - Immunization history:: Adult Immunizations up to date. - Social history:: Smoking status: Patient/guardian denies using tobacco. - Ebola Screening: : No symptoms or risks identified at this time. ROS: 21:25 Eyes: Negative for injury, pain, redness, and discharge, ENT: Negative for injury, jr8 pain, and discharge, Neck: Negative for injury, pain, and swelling, Cardiovascular: Negative for chest pain, palpitations, and edema, Respiratory: Negative for shortness of breath, cough, wheezing, and pleuritic chest pain, Abdomen/GI: Negative for abdominal pain, nausea, vomiting, diarrhea, and constipation, Back: Negative for injury and pain, MS/Extremity: Negative for injury and deformity, Neuro: Negative for headache, weakness, numbness, tingling, and seizure. 21:25 Skin: Positive for laceration(s), of the right leg and left leg. Exam: 21:25 Head/Face: Normocephalic, atraumatic. Eyes: Pupils equal round and reactive to light, jr8 extra-ocular motions intact. Lids and lashes normal. Conjunctiva and sclera are non-icteric and not injected. Cornea within normal limits. Periorbital areas with no swelling, redness, or edema. ENT: Nares patent. No nasal discharge, no septal abnormalities noted. Tympanic membranes are normal and external auditory canals are clear. Oropharynx with no redness, swelling, or masses, exudates, or evidence of obstruction, uvula midline. Mucous membranes moist. Neck: Trachea midline, no thyromegaly or masses palpated, and no cervical lymphadenopathy. Supple, full range of motion without nuchal rigidity, or vertebral point tenderness. No Meningismus. Cardiovascular: Regular rate and rhythm with a normal S1 and S2. No gallops, murmurs, or rubs. Normal PMI, no JVD. No pulse deficits. Respiratory: Lungs have equal breath sounds bilaterally, clear to auscultation and percussion. No rales, rhonchi or wheezes noted. No increased work of breathing, no retractions or nasal flaring. Abdomen/GI: Soft, non-tender, with normal bowel sounds. No distension or tympany. No guarding or rebound. No evidence of tenderness throughout. Back: No spinal tenderness. No costovertebral tenderness. Full range of motion. MS/ Extremity: Pulses equal, no cyanosis. Neurovascular intact. Full, normal range of motion. Neuro: Awake and alert, GCS 15, oriented to person, place, time, and situation. Cranial nerves II-XII grossly intact. Motor strength 5/5 in all extremities. Sensory grossly intact. Cerebellar exam normal. Normal gait. 21:25 Skin: multiple superficial lacerations to right and left legs. Old healing ones noted to arms and legs as well. 3 deep lacerations to subcutaneous noted to thighs and lower left legs. No bleeding currently . Vital Signs: 21:00 BP 123 / 70; Pulse 91; Resp 18; Temp 98.7; Pulse Ox 98% ; Weight 70.31 kg; Height 6 ft. ea 2 in. (187.96 cm); Pain 0/10; 22:00 BP 121 / 78; Pulse 70; Resp 18; Pulse Ox 100% on R/A; ea 23:16 BP 124 / 77; Pulse 73; Resp 18; Pulse Ox 100% on R/A; ea 21:00 Body Mass Index 19.90 (70.31 kg, 187.96 cm) ea Laceration: 23:38 Wound Repair of 6cm ( 2.4in ) subcutaneous laceration to left thigh. Linear shaped.. jr8 Distal neuro/vascular/tendon intact. Anesthesia: Local anesthetic administered with 6 mls of 1% lidocaine w/ Epi. Wound prep: Extensive cleansing with betadine, Wound irrigation with saline, Wound explored extensively. Skin closed with 8 3-0 Prolene using simple sutures and sterile technique. Patient tolerated well. 23:38 Wound Repair of 7.5cm ( 3.0in ) subcutaneous laceration to left lower leg. Linear jr8 shaped.. Distal neuro/vascular/tendon intact. Anesthesia: Local anesthetic administered with 6 mls of 1% lidocaine w/ Epi. Wound prep: Extensive cleansing with betadine, Wound irrigation with saline, Wound explored extensively. Skin closed with 8 3-0 Prolene using interrupted sutures and sterile technique. Patient tolerated well. 23:38 Wound Repair of 8cm ( 3.1in ) subcutaneous laceration to left lower leg. Linear jr8 shaped.. Distal neuro/vascular/tendon intact. Anesthesia: Local anesthetic administered with 7 mls of 1% lidocaine. Wound prep: Extensive cleansing with betadine, Wound irrigation with saline, Wound explored extensively. Skin closed with 10 3-0 Prolene using interrupted sutures and sterile technique. Patient tolerated well. 23:38 Wound Repair of 7.5cm ( 3.0in ) subcutaneous laceration to right thigh. Linear shaped.. jr8 Minimal bleeding noted.. Distal neuro/vascular/tendon intact. Anesthesia: Local anesthetic administered with 8 mls of 1% lidocaine w/ Epi. Wound prep: Extensive cleansing with betadine, Wound irrigation with saline, Wound explored extensively. Skin closed with 7 3-0 Prolene using interrupted sutures and sterile technique. Patient tolerated well. MDM: 20:56 Patient medically screened. jr8 23:42 Data reviewed: vital signs, nurses notes, and as a result, I will discharge patient. jr8 Data interpreted: Pulse oximetry: on room air is 100 %. Interpretation: normal. Counseling: I had a detailed discussion with the patient and/or guardian regarding: the historical points, exam findings, and any diagnostic results supporting the discharge/admit diagnosis, the need for outpatient follow up, a family practitioner, to return to the emergency department if symptoms worsen or persist or if there are any questions or concerns that arise at home. 05/04 20:57 Order name: Prolene, Sutures; Complete Time: 21:38 8 05/04 20:57 Order name: Dressing - Wound; Complete Time: 21:38 8 05/04 20:57 Order name: Gloves, Sterile; Complete Time: 21:16 8 05/04 20:57 Order name: Setup Suture Tray; Complete Time: 21:16 8 Administered Medications: 23:16 Drug: Lidocaine (1 %) 1 vials {Note: by provider.} Volume: 20 ml; Route: Infiltration; ea Disposition: 05/04/18 23:44 Discharged to Home. Impression: Laceration without foreign body, left lower leg, Laceration without foreign body, right thigh, Laceration without foreign body, left thigh. - Condition is Stable. - Discharge Instructions: Laceration Care, Adult. - Prescriptions for Ibuprofen 800 mg Oral Tablet - take 1 tablet by ORAL route every 12 hours As needed take with food; 20 tablet. Keflex 500 mg Oral Capsule - take 1 capsule by ORAL route every 8 hours for 10 days; 30 capsule. - Medication Reconciliation Form, SBAR form, Thank You Letter, Antibiotic Education, Prescription Opioid Use form. - Follow up: Private Physician; When: 7 - 10 days; Reason: Wound Recheck, Recheck today's complaints, Continuance of care, Staple/Suture removal, Re-evaluation by your physician. - Problem is new. - Symptoms have improved. Addendum: 05/08/2018 17:37 Co-signature as Attending Physician, Lc Wolff MD. g s Signatures: Cem Carter PA PA jr8 Lily Andino RN RN ea Starr, Gregory, MD MD Corrections: (The following items were deleted from the chart) 05/04 23:54 23:44 05/04/2018 23:44 Discharged to Home. Impression: Laceration without foreign body, ea left lower leg; Laceration without foreign body, right thigh; Laceration without foreign body, left thigh. Condition is Stable. Forms are Medication Reconciliation Form, SBAR form, Thank You Letter, Antibiotic Education, Prescription Opioid Use. Follow up: Private Physician; When: 7 - 10 days; Reason: Wound Recheck, Recheck today's complaints, Continuance of care, Staple/Suture removal, Re-evaluation by your physician. Problem is new. Symptoms have improved. jr8
== END 2018-05-04 23:54 | disposition home or self-care (01) ==
LOC: ER 20:36
PROC: 0JQP0ZZ Repair Left Lower Leg Subcutaneous Tissue and Fascia, Open Approach (ICD-10-PCS; principal; 2018-05-04)
PROC: 0JQM0ZZ Repair Left Upper Leg Subcutaneous Tissue and Fascia, Open Approach (ICD-10-PCS; 2018-05-04)
PROC: 0JQL0ZZ Repair Right Upper Leg Subcutaneous Tissue and Fascia, Open Approach (ICD-10-PCS; 2018-05-04)
DX: S71.111A Laceration without foreign body, right thigh, initial encounter (principal); S71.112A Laceration without foreign body, left thigh, initial encounter; W45.8XXA Other foreign body or object entering through skin, initial encounter; Y93.89 Activity, other specified; Y92.9 Unspecified place or not applicable; F32.9 Major depressive disorder, single episode, unspecified
CPT/HCPCS: 99283

== ENCOUNTER 2018-05-11 07:28 | Emergency (ER) | payer SELFPAY ==
--- OUTSIDE RECORDS SUMMARY | 2018-05-11 07:30 | XMS REPORT | Clinical Summary ---
:1995 Author Organization [facility] Address [address] [place] [address] Care Team Providers Name Role Phone Asked, [...] Type Specialty Care Team Description 10/21/2017 Documentation [facility] Shereen Ken LPC 10/19/2017 - Hospital Encounter Psychiatry Alexei Felix MD 10/21/2017 Jayesh Alford MD after 05/10/2017 Social History Tobacco Use Types Packs/Day Years Used Date Former Smoker Cigarettes Quit: 10/19/2016 Smokeless Tobacco: Never Used Tobacco Cessation: Counseling Given: No Alcohol Use Drinks/Week oz/Week Comments Yes 5 Cans of beer 3.0 daily Sex Assigned at Date Recorded Not on file Last Filed Vital Signs Vital Sign Reading Time Taken Blood Pressure 134/79 10/21/2017 6:15 AM [employer] Pulse 79 10/21/2017 6:15 AM [employer] Temperature 36.3 C (97.3 F) 10/21/2017 6:15 AM [employer] Respiratory Rate 18 10/21/2017 6:15 AM [employer] Oxygen Saturation 99% 10/21/2017 6:15 AM [employer] Inhaled Oxygen Concentration - - Weight 64.2 kg (141 lb 8 oz) 10/19/2017 12:24 PM [employer] Height 188 cm (6' 2") 10/19/2017 12:24 PM [employer] Body Mass Index 18.17 10/19/2017 12:24 PM [employer] Plan of Treatment Not on file Procedures Procedure Name Priority Date/Time Associated Comments Diagnosis CONSULT TO OSTOMY CARE Routine 10/20/2017 12:56 NURSE PM [employer] HC COMPLETE BLD COUNT Routine 10/20/2017 5:00 Results for this W/AUTO DIFF AM [employer] procedure are in the results section. HEMOGLOBIN A1C Routine 10/20/2017 5:00 Results for this AM [employer] procedure are in the results section. ESTIMATED GFR Routine 10/20/2017 4:00 Results for this AM [employer] procedure are in the results section. ALCOHOL LEVEL, BLOOD Routine 10/20/2017 4:00 Results for this AM [employer] procedure are in the results section. THYROID STIMULATING Routine 10/20/2017 4:00 Results for this HORMONE AM [employer] procedure are in the results section. LIPID PANEL Routine 10/20/2017 4:00 Results for this AM [employer] procedure are in the results section. COMPREHENSIVE Routine 10/20/2017 4:00 Results for this METABOLIC PANEL AM [employer] procedure are in the results section. ECG 12-LEAD STAT 10/19/2017 9:58 Results for this PM [employer] procedure are in the results section. after 05/10/2017 Results CBC with platelet and differential (10/20/2017 5:00 AM) WBC 9.71 4.50 - 11.00 k/uL [facility] RBC 4.72 4.40 - 6.00 m/uL [facility] HGB 14.0 14.0 - 18.0 g/dL [facility] HCT 40.8 (L) 41.0 - 51.0 % [facility] MCV 86.4 82.0 - 100.0 fL [facility] MCH 29.7 27.0 - 34.0 pg [facility] MCHC 34.3 31.0 - 37.0 g/dL [facility] RDW - SD 40.1 37.0 - 55.0 fL [facility] MPV 11.9 8.8 - 13.2 fL [facility] Platelet count 179 150 - 400 k/uL [facility] Nucleated RBC 0.00 /100 WBC [facility] Neutrophils 52.6 39.0 - 69.0 % [facility] Lymphocytes 36.6 25.0 - 45.0 % [facility] Monocytes 9.2 0.0 - 10.0 % [facility] Eosinophils 1.1 0.0 - 5.0 % [facility] Basophils 0.4 0.0 - 1.0 % [facility] Immature granulocytes 0.1Comment: 0.0 - 1.0 % [facility] "Immature PATHOLOGY AND GENOMIC granulocytes" MEDICINE (promyelocytes, myelocytes, metamyelocytes) Specimen Blood Performing Organization Address City/[facility] Phone Number [facility] AND [address] [place] [id number] [facility] Hemoglobin A1c (10/20/2017 5:00 AM) Hemoglobin A1C 5.4 4.0 - 5.6 % [facility] Comment: PATHOLOGY AND GENOMIC HbA1c [...] well characterized. Specimen Blood Performing Organization Address City/[facility] Phone Number [facility] AND [address] [place] [address] [employer] Estimated GFR (10/20/2017 4:00 AM) GFR Non Af Amer 75 mL/min/1.73 m2 [facility] GFR Af Amer >90 mL/min/1.73 m2 [facility] Comment: PATHOLOGY AND GENOMIC Chronic [...] Americans. Specimen Plasma specimen Performing Organization Address City/[facility] Phone Number [facility] AND [address] [place] [address] Thyroid stimulating hormone (10/20/2017 4:00 AM) TSH 1.79 0.27 - 4.20 uIU/mL [facility] Specimen Plasma specimen Performing Organization Address [facility] Phone Number [facility] AND [address] [place], [place] [id number] [facility] Alcohol level, blood (10/20/2017 4:00 AM) Alcohol None Detected mg/dL [facility] PATHOLOGY Comment: AND GENOMIC MEDICINE Normal None Detected Legal Intoxication in [place]80 mg/dL (0.08%) - Whole Blood Toxic Qbeieywnsogmk184 mg/dL (0.2%) Potentially Ohmob597 - 500 mg/dL (0.35 - 0.5%) Alcohol percent None Detected % [facility] Specimen Plasma specimen Performing Organization Address [facility] Phone Number [facility] AND [address] [place] [phone] [facility] Lipid panel (10/20/2017 4:00 AM) Cholesterol 126 <200 mg/dL [facility] Triglycerides 71 <150 mg/dL [facility] HDL cholesterol 66 >40 mg/dL [facility] LDL cholesterol 64Comment: Result <100 mg/dL [facility] obtained by direct LDL PATHOLOGY AND GENOMIC measurement MEDICINE Lipid panel interpretation SeeBelow [facility] Comment: PATHOLOGY AND GENOMIC Total Cholesterol (mg/dL) MEDICINE <200 Desirable 423-492Bwztwmboxx-ddgl >=240High Triglycerides (mg/dL) <150 Normal 023-503Uswnpgachj-athr 200-499High >=500Very high HDL Cholesterol (mg/dL) <40Low (male) <40Low (female) LDL Cholesterol (mg/dL) <100 Optimal 100-129Near or above optimal [id number]-cidx 160-189High >=190Very high Risk Catergories that modify [...] specimen Performing Organization Address City/State/Zipcode Phone Number [facility] AND [address] [place] [address] [employer] [facility] Comprehensive metabolic panel (10/20/2017 4:00 AM) Sodium 141 135 - 148 mEq/L [facility] Potassium 3.9 3.5 - 5.0 mEq/L [facility] Chloride 101 98 - 112 mEq/L [facility]OMIC MEDICINE CO2 27 24 - 31 mEq/L [facility] Anion gap 13 7 - 15 mEq/L [facility] Comment: PATHOLOGY AND GENOMIC Starting from December , anion gap calculation MEDICINE no longer incorporates potassium. Please note the change. BUN 10 6 - 20 mg/dL [facility] Creatinine 1.2 0.7 - 1.2 mg/dL [facility] Glucose 102 (H) 65 - 99 mg/dL [facility] Calcium 9.7 8.3 - 10.2 mg/dL [facility] Protein 7.0 6.3 - 8.3 g/dL [facility] Comment: PATHOLOGY AND GENOMIC Athena 4.6-7.0 g/dL MEDICINE 1 week 4.4-7.6 g/dL 7 months-1year5.1-7.3 g/dL 1-2 years5.6-7.5 g/dL >3 years6.0-8.0 g/dL 18-150 6.3-8.3 g/dL Albumin 4.1 3.5 - 5.0 g/dL [facility] A/G ratio 1.4 0.7 - 3.8 [facility] Alkaline phosphatase 60 40 - 129 U/L [facility] AST 20 10 - 50 U/L [facility] MEDIC[facility] ALT 22 5 - 50 U/L [facility]IC[facility] Total bilirubin 0.9 0.0 - 1.2 mg/dL [facility]IC[facility] Specimen Plasma specimen Performing Organization Address City/[facility] Phone Number [facility] AND [address] [place] [address] [facility] ECG 12 lead (10/19/2017 9:58 PM) Ventricular rate 65 [facility] Atrial rate 65 [facility] VA interval 120 [facility] QRSD interval 78 [facility] QT interval 382 [facility] QTC interval 397 [facility] QRS axis 1 43 [facility] T wave axis 28 [facility] EKG impression Normal sinus rhythm-Normal ECG-No previous [facility] ECGs available- Performing Organization Address City/[facility] Phone Number [facility] [address] [place] [address] after 05/10/2017
--- OUTSIDE RECORDS SUMMARY | 2018-05-11 07:30 | XMS REPORT ---
:1995 Author [facility] Address [address] [place] [address] Care Team Providers Name Role Phone UNKNOWN, [...] race is not provided, and the patient isAfrican-Guyanese, multiply by 1.212. If sex is not provided, and thepatient is female, multiply by 0.742. Results for patients <18 years ofage have not been validated by the MDRD study and should be interpretedwith caution.eGFR Result Interpretation:eGFR > or=60 is in the Normal RangeeGFR < 60 may mean kidney diseaseeGFR < 15 may mean kidney failureRanges recommended by the National Kidney Foundation,http://nkdep.nih.go v RPR, [id number] 12:15:00 Test Item Value Reference Range Comments RPR (test code=RPR) Non-Reactive Non-Reactive Lipid [id number] 11:22:00 Test Item Value Reference Range Comments Cholesterol (test 149 mg/dL 0-200 code=CHOL) Triglycerides (test 125 mg/dL 9-200 code=TRIG) HDL (test code=HDL) 51 mg/dL 40-60 Chol/HDL (test 2.9 Ratio 0.0-5.0 code=CHOLPHDL) LDL, Calculated (test 73 0-130 (NOTE)RISK OF HEART code=LDLC) DISEASEPublished by Guyanese Heart AssociationAnalyte Optimal Boderline Increased RiskCHOL <200 200-239 >240TRIG <150 150-199 >200HDL Male: >60 <40HDL Female: >60 <50LDL <100 130-159 >160LDL NEAR OPTIMAL IS 100-129 VLDL (test code=VLDL) 25 mg/dL 5-40 LDL/HDL (test code=LDLPHDL) 1 Thyroid Stimulating Hormone (TSH)2017-07-28 08:55:00 Test Item Value Reference Range Comments TSH (test code=TSH) 2.44 mIU/mL 0.270-4.200
--- NOTE | 2018-05-11 07:39 | EDPHYS ---
Physician Documentation [facility] Name: Filiberto Barron Age: 22 yrs Sex: Male : 1995 Arrival Date: 05/11/2018 Time: 07:30 Bed 13 Private MD: None, None ED Physician Manny Fitch HPI: 05/11 07:46 This 22 yrs old Male presents to ER via Ambulatory with complaints of Suture kb Recheck. 07:46 Patient presents to ED for recheck of: laceration. The affected area is on the left kb holt. Previous treatment: The patient was initially treated on May 04, 2018, the care was rendered at [facility], Treatment type: The patient's original treatment included sutures, Outpatient prescription(s): The patient was given prescription(s) for Keflex. Progress: The patient reports increased drainage, pain, redness, swelling. The patient has not experienced similar symptoms in the past. The patient has been recently seen at the [facility] Emergency Department, last week, for similar complaints. 07:47 Pt states he came in to get his laceration looked at because he thinks it is infected. kb States it started getting red and swollen the day after he got the sutures placed. . Historical: - Allergies: 07:49 No Known Allergies; tw2 - Home Meds: 07:47 Zoloft Oral [Active]; tw2 - PMHx: 07:47 Depression; suicidal ideation; tw2 - PSHx: 07:47 None; tw2 - Immunization history:: Adult Immunizations. - Social history:: Smoking status: . - Ebola Screening: : Patient denies travel to an Ebola-affected area in the 21 days before illness onset. ROS: 07:47 Constitutional: Negative for fever, chills, and weight loss, Cardiovascular: Negative kb for chest pain, palpitations, and edema, Respiratory: Negative for shortness of breath, cough, wheezing, and pleuritic chest pain, Abdomen/GI: Negative for abdominal pain, nausea, vomiting, diarrhea, and constipation, MS/Extremity: Negative for injury and deformity, Neuro: Negative for headache, weakness, numbness, tingling, and seizure. 07:47 Skin: Positive for erythema, laceration(s), swelling, of the left holt and medial aspect of left calf. Exam: 07:47 Constitutional: This is a well developed, well nourished patient who is awake, alert, kb and in no acute distress. Head/Face: Normocephalic, atraumatic. Chest/axilla: Normal chest wall appearance and motion. Nontender with no deformity. No lesions are appreciated. Cardiovascular: Regular rate and rhythm with a normal S1 and S2. No gallops, murmurs, or rubs. Normal PMI, no JVD. No pulse deficits. Respiratory: Lungs have equal breath sounds bilaterally, clear to auscultation and percussion. No rales, rhonchi or wheezes noted. No increased work of breathing, no retractions or nasal flaring. Abdomen/GI: Soft, non-tender, with normal bowel sounds. No distension or tympany. No guarding or rebound. No evidence of tenderness throughout. MS/ Extremity: Pulses equal, no cyanosis. Neurovascular intact. Full, normal range of motion. Neuro: Awake and alert, GCS 15, oriented to person, place, time, and situation. Cranial nerves II-XII grossly intact. Motor strength 5/5 in all extremities. Sensory grossly intact. Cerebellar exam normal. Normal gait. 07:47 Skin: Wound recheck: Suture laceration closure: no evidence of dehiscence, mild drainage, moderate erythema, moderate swelling. Vital Signs: 07:43 BP 131 / 75; Pulse 73; Resp 17; Temp 98.6; Pulse Ox 100% on R/A; tw2 MDM: 07:38 Data reviewed: vital signs, nurses notes. Data interpreted: Pulse oximetry: on room air kb is 100 %. Interpretation: normal. Counseling: I had a detailed discussion with the patient and/or guardian regarding: the historical points, exam findings, and any diagnostic results supporting the discharge/admit diagnosis, the need for outpatient follow up, a family practitioner, to return to the emergency department if symptoms worsen or persist or if there are any questions or concerns that arise at home. 07:39 Patient medically screened. kb 05/11 07:37 Order name: Wound Culture kb Administered Medications: 07:40 Drug: Bactrim (160 mg-800 mg (DS) 1 tablet Route: PO; tw2 07:58 Follow up: Response: No adverse reaction tw2 Disposition: 08:12 Co-signature as Attending Physician, Manny Fitch MD. rn Disposition: 05/11/18 07:39 Discharged to Home. Impression: Local infection of the skin and subcutaneous tissue, unspecified. - Condition is Stable. - Discharge Instructions: Wound Infection, [id number]. - Prescriptions for Bactrim DS 800- 160 mg Oral Tablet - take 1 tablet by ORAL route every 12 hours for 10 days; 20 tablet. - Medication Reconciliation Form, Thank You Letter, Antibiotic Education, Prescription Opioid Use form. - Follow up: Emergency Department; When: As needed; Reason: Worsening of condition. Follow up: Private Physician; When: 2 - 3 days; Reason: Recheck today's complaints, Continuance of care, Re-evaluation by your physician. Signatures: Dispatcher [employer] EDMS Linnette Treviño, TEAM DRIVER-C TEAM DRIVER-Ckb Manny Fitch MD MD rn Wise, Tara, RN RN tw2 Corrections: (The following items were deleted from the chart) 07:50 07:47 Skin: Positive for laceration(s), of the left holt and medial aspect of left kb calf, kb 08:01 07:39 05/11/2018 07:39 Discharged to Home. Impression: Local infection of the skin and tw2 subcutaneous tissue, unspecified. Condition is Stable. Forms are Medication Reconciliation Form, Thank You Letter, Antibiotic Education, Prescription Opioid Use. Follow up: Emergency Department; When: As needed; Reason: Worsening of condition. Follow up: Private Physician; When: 2 - 3 days; Reason: Recheck today's complaints, Continuance of care, Re-evaluation by your physician. kb
[2018-05-11] MEDS ORDERED: SMZ./TMP. 800/160 MG TABLET ONE (07:43)
--- NOTE | 2018-05-11 08:02 | ER ---
Nurse's Notes [facility] Name: Filiberto Barron Age: 22 yrs Sex: Male : 1995 Arrival Date: 05/11/2018 Time: 07:30 Bed 13 Private MD: None, None Diagnosis: Local infection of the skin and subcutaneous tissue, unspecified Presentation: 05/11 07:44 Presenting complaint: Patient states: here to get my cuts looked at. Transition of tw2 care: patient was not received from another setting of care. Onset of symptoms was May 11, 2018. Risk Assessment: Do you want to hurt yourself or someone else? Patient reports no desire to harm self or others. Initial Sepsis Screen: Does the patient meet any 2 criteria? No. Patient's initial sepsis screen is negative. Does the patient have a suspected source of infection? Yes: Skin breakdown/wound. Care prior to arrival: None. 07:44 Method Of Arrival: Ambulatory tw2 07:44 Acuity: FELI 4 tw2 Historical: - Allergies: 07:49 No Known Allergies; tw2 - Home Meds: 07:47 Zoloft Oral [Active]; tw2 - PMHx: 07:47 Depression; suicidal ideation; tw2 - PSHx: 07:47 None; tw2 - Immunization history:: Adult Immunizations. - Social history:: Smoking status: . - Ebola Screening: : Patient denies travel to an Ebola-affected area in the 21 days before illness onset. Screenin:46 Abuse screen: Denies threats or abuse. Nutritional screening: No deficits noted. tw2 Tuberculosis screening: No symptoms or risk factors identified. Fall Risk None identified. Assessment: 07:45 General: Appears in no apparent distress. Behavior is calm, cooperative, appropriate tw2 for age. Pain: Complains of pain in medial aspect of left calf. Neuro: Level of Consciousness is awake, alert, obeys commands, Oriented to person, place, time, situation. Cardiovascular: Patient's skin is warm and dry. Respiratory: Airway is patent Respiratory effort is even, unlabored, Respiratory pattern is regular, symmetrical. GI: No signs and/or symptoms were reported involving the gastrointestinal system. : No signs and/or symptoms were reported regarding the genitourinary system. EENT: No signs and/or symptoms were reported regarding the EENT system. Derm: Wound noted medial aspect of left calf Other: sutures remain in tact, lower wound to left leg appears to be infected, erythema noted with pustular drainage noted. pt reports it is painful to the touch. Musculoskeletal: Range of motion: intact in all extremities. 07:59 Reassessment: Patient appears in no apparent distress at this time. No changes from tw2 previously documented assessment. Patient and/or family updated on plan of care and expected duration. Pain level reassessed. Patient is alert, oriented x 3, equal unlabored respirations, skin warm/dry/pink. Vital Signs: 07:43 BP 131 / 75; Pulse 73; Resp 17; Temp 98.6; Pulse Ox 100% on R/A; tw2 ED Course: 07:30 Patient arrived in ED. sb2 07:31 None, None is Private Physician. sb2 07:31 Linnette Treviño [facility]-C [facility] kb 07:31 Manny Fitch MD is Attending Physician. kb 07:40 Bed in low position. Call light in reach. Adult w/ patient. Pulse ox on. NIBP on. tw2 07:42 Janell Ureña, [place] is Primary Nurse. tw2 07:44 Triage completed. tw2 07:44 Arm band placed on. tw2 07:59 No provider procedures requiring assistance completed. Patient did not have IV access tw2 during this emergency room visit. Administered Medications: 07:40 Drug: Bactrim (160 mg-800 mg (DS) 1 tablet Route: PO; tw2 07:58 Follow up: Response: No adverse reaction tw2 Outcome: 07:39 Discharge ordered by . kb 07:59 Discharged to home ambulatory, with friend. tw2 07:59 Condition: stable 07:59 Discharge instructions given to patient, friend, Instructed on discharge instructions, follow up and referral plans. medication usage, wound care, Demonstrated understanding of instructions, follow-up care, medications, wound care, Prescriptions given X 1. 08:01 Patient left the ED. tw2 Addendum: 05/14/2018 11:35 Addendum: Culture Results: Positive wound culture. No further action required. Bacteria s s sensitive to prescribed antibiotic. Signatures: Linnette Treviño FNP-C FNP-Ckb Smirch, Shelby, RN RN Janell Ureña RN RN tw2 Jessica Leon sb2 Corrections: (The following items were deleted from the chart) 05/11 07:50 07:44 Presenting complaint: Patient states: here to get my sutures removed tw2 tw2
== END 2018-05-11 08:01 | disposition home or self-care (01) ==
LOC: ER 07:28
DX: L08.9 Local infection of the skin and subcutaneous tissue, unspecified (principal); F32.9 Major depressive disorder, single episode, unspecified
CPT/HCPCS: 87070; 87077; 87186; 87205; 99283

== ENCOUNTER 2018-05-19 05:19 | Emergency (ER) | payer SELFPAY ==
--- OUTSIDE RECORDS SUMMARY | 2018-05-19 05:21 | XMS REPORT ---
:1995 Author Organization [facility] Address [address] [place] [address] Care Team Providers Name Role Phone UNKNOWN, [...] race is not provided, and the patient isAfrican-Cymro, multiply by 1.212. If sex is not provided, and thepatient is female, multiply by 0.742. Results for patients <18 years ofage have not been validated by the MDRD study and should be interpretedwith caution.eGFR Result Interpretation:eGFR > or=60 is in the Normal RangeeGFR < 60 may mean kidney diseaseeGFR < 15 may mean kidney failureRanges recommended by the National Kidney Foundation,http://nkdep.nih.go v RPR, [id number] 12:15:00 Test Item Value Reference Range Comments RPR (test code=RPR) Non-Reactive Non-Reactive Lipid [id number] 11:22:00 Test Item Value Reference Range Comments Cholesterol (test 149 mg/dL 0-200 code=CHOL) Triglycerides (test 125 mg/dL 9-200 code=TRIG) HDL (test code=HDL) 51 mg/dL 40-60 Chol/HDL (test 2.9 Ratio 0.0-5.0 code=CHOLPHDL) LDL, Calculated (test 73 0-130 (NOTE)RISK OF HEART code=LDLC) DISEASEPublished by Cymro Heart AssociationAnalyte Optimal Boderline Increased RiskCHOL <200 200-239 >240TRIG <150 150-199 >200HDL Male: >60 <40HDL Female: >60 <50LDL <100 130-159 >160LDL NEAR OPTIMAL IS 100-129 VLDL (test code=VLDL) 25 mg/dL 5-40 LDL/HDL (test code=LDLPHDL) 1 Thyroid Stimulating Hormone (TSH)2017-07-28 08:55:00 Test Item Value Reference Range Comments TSH (test code=TSH) 2.44 mIU/mL 0.270-4.200
--- OUTSIDE RECORDS SUMMARY | 2018-05-19 05:21 | XMS REPORT | Clinical Summary ---
:1995 Author Organization [facility] Address [address] [place] [id number] Care Team Providers Name Role Phone Asked, [...] Type Specialty Care Team Description 10/21/2017 Documentation Data Center Engineer Shereen Ken LPC 10/19/2017 - Hospital Encounter Psychiatry Alexei Felix MD 10/21/2017 Jayesh Alford MD after 05/18/2017 Social History Tobacco Use Types Packs/Day Years Used Date Former Smoker Cigarettes Quit: 10/19/2016 Smokeless Tobacco: Never Used Tobacco Cessation: Counseling Given: No Alcohol Use Drinks/Week oz/Week Comments Yes 5 Cans of beer 3.0 daily Sex Assigned at Date Recorded Not on file Last Filed Vital Signs Vital Sign Reading Time Taken Blood Pressure 134/79 10/21/2017 6:15 AM ELECTRONIC 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 Pulse 79 10/21/2017 6:15 AM ELECTRONIC 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 REPAIRER Temperature 36.3 C (97.3 F) 10/21/2017 6:15 AM ELECTRONIC 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 REPAIRER Respiratory Rate 18 10/21/2017 6:15 AM ELECTRONIC 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 REPAIRER Oxygen Saturation 99% 10/21/2017 6:15 AM ELECTRONIC 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 REPAIRER Inhaled Oxygen Concentration - - Weight 64.2 kg (141 lb 8 oz) 10/19/2017 12:24 PM ELECTRONIC 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 REPAIRER Height 188 cm (6' 2") 10/19/2017 12:24 PM ELECTRONIC 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 REPAIRER Body Mass Index 18.17 10/19/2017 12:24 PM ELECTRONIC 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 REPAIRER Plan of Treatment Not on file Procedures Procedure Name Priority Date/Time Associated Comments Diagnosis CONSULT TO OSTOMY CARE Routine 10/20/2017 12:56 NURSE PM ELECTRONIC 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 REPAIRER HC COMPLETE BLD COUNT Routine 10/20/2017 5:00 Results for this W/AUTO DIFF AM ELECTRONIC 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 REPAIRER procedure are in the results section. HEMOGLOBIN A1C Routine 10/20/2017 5:00 Results for this AM ELECTRONIC 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 REPAIRER procedure are in the results section. ESTIMATED GFR Routine 10/20/2017 4:00 Results for this AM ELECTRONIC 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 REPAIRER procedure are in the results section. ALCOHOL LEVEL, BLOOD Routine 10/20/2017 4:00 Results for this AM ELECTRONIC 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 REPAIRER procedure are in the results section. THYROID STIMULATING Routine 10/20/2017 4:00 Results for this HORMONE AM ELECTRONIC 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 REPAIRER procedure are in the results section. LIPID PANEL Routine 10/20/2017 4:00 Results for this AM ELECTRONIC 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 REPAIRER procedure are in the results section. COMPREHENSIVE Routine 10/20/2017 4:00 Results for this METABOLIC PANEL AM ELECTRONIC 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 REPAIRER procedure are in the results section. ECG 12-LEAD STAT 10/19/2017 9:58 Results for this PM ELECTRONIC 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 REPAIRER procedure are in the results section. after 05/18/2017 Results CBC with platelet and differential (10/20/2017 5:00 AM) WBC 9.71 4.50 - 11.00 k/uL [facility] DEPARTMENT OF PATHOLOGY AND GENOMIC MEDICINE RBC 4.72 4.40 - 6.00 m/uL [facility] PATHOLOGY AND GENOMIC MEDICINE HGB 14.0 14.0 - 18.0 g/dL [facility]PART[facility] OF PATHOLOGY AND GENOMIC MEDICINE HCT 40.8 (L) 41.0 - 51.0 % [facility] DEPARTMENT OF PATHOLOGY AND GENOMIC MEDICINE MCV 86.4 82.0 - 100.0 fL [facility] DEPARTMENT OF PATHOLOGY AND GENOMIC MEDICINE MCH 29.7 27.0 - 34.0 pg [facility] DEPARTMENT OF PATHOLOGY AND GENOMIC MEDICINE MCHC 34.3 31.0 - 37.0 g/dL [facility] DEPARTMENT OF PATHOLOGY AND GENOMIC MEDICINE RDW - SD 40.1 37.0 - 55.0 fL [facility] DEPARTMENT OF PATHOLOGY AND GENOMIC MEDICINE MPV 11.9 8.8 - 13.2 fL [facility] DEPART[facility] OF PATHOLOGY AND GENOMIC MEDICINE Platelet count 179 150 - 400 k/uL [facility]MENT OF PATHOLOGY AND GENOMIC MEDICINE Nucleated RBC 0.00 /100 WBC [facility] DEPARTMENT OF PATHOLOGY AND GENOMIC MEDICINE Neutrophils 52.6 39.0 - 69.0 % [facility] OF PATHOLOGY AND GENOMIC MEDICINE Lymphocytes 36.6 25.0 - 45.0 % [facility] OF PATHOLOGY AND GENOMIC MEDICINE Monocytes 9.2 0.0 - 10.0 % [facility] DEPARTMENT OF PATHOLOGY AND GENOMIC MEDICINE Eosinophils 1.1 0.0 - 5.0 % [facility]PARTMENT OF PATHOLOGY AND GENOMIC MEDICINE Basophils 0.4 0.0 - 1.0 % [facility]PART[facility] OF PATHOLOGY AND GENOMIC MEDICINE Immature granulocytes 0.1Comment: 0.0 - 1.0 % [facility] DEPART[facility] OF "Immature PATHOLOGY AND GENOMIC granulocytes" MEDICINE (promyelocytes, myelocytes, metamyelocytes) Specimen Blood Performing Organization Address City/[facility] [place] Number [facility] DEPARTMENT OF PATHOLOGY AND [address] [place] [id number] [facility] Hemoglobin A1c (10/20/2017 5:00 AM) Hemoglobin A1C 5.4 4.0 - 5.6 % [facility] DEPARTMENT OF Comment: PATHOLOGY AND GENOMIC HbA1c [...] well characterized. Specimen Blood Performing Organization Address City/[facility] Phone Number [facility] DEPART[facility] OF PATHOLOGY AND [address] [place] [phone] payever Estimated GFR (10/20/2017 4:00 AM) GFR Non Af Amer 75 mL/min/1.73 m2 [facility] DEPARTMENT OF PATHOLOGY AND GENOMIC MEDICINE GFR Af Amer >90 mL/min/1.73 m2 [facility] DEPARTMENT OF Comment: PATHOLOGY AND GENOMIC Chronic [...] Americans. Specimen Plasma specimen Performing Organization Address City/[facility] Phone Number [facility] DEPARTMENT OF PATHOLOGY AND [address] [place] [address] Thyroid stimulating hormone (10/20/2017 4:00 AM) TSH 1.79 0.27 - 4.20 uIU/mL [facility] DEPARTMENT OF PATHOLOGY AND GENOMIC MEDICINE Specimen Plasma specimen Performing Organization Address [facility] [place] Phone [facility] DEPARTMENT OF PATHOLOGY AND [address] [place], [place] [phone] [facility] Alcohol level, blood (10/20/2017 4:00 AM) Alcohol None Detected mg/dL [facility] DEPARTMENT OF PATHOLOGY Comment: AND GENOMIC MEDICINE Normal None Detected Legal Intoxication in [place]80 mg/dL (0.08%) - Whole Blood Toxic [id number] mg/dL (0.2%) Potentially [id number] - 500 mg/dL (0.35 - 0.5%) Alcohol percent None Detected % [facility] DEPARTMENT OF PATHOLOGY AND GENOMIC MEDICINE Specimen Plasma specimen Performing Organization Address [facility] [place] Phone Number [facility] DEPARTMENT OF PATHOLOGY AND [address] [place] [phone] [facility] Lipid panel (10/20/2017 4:00 AM) Cholesterol 126 <200 mg/dL [facility] DEPARTMENT OF PATHOLOGY AND GENOMIC MEDICINE Triglycerides 71 <150 mg/dL [facility] DEPARTMENT OF PATHOLOGY AND GENOMIC MEDICINE HDL cholesterol 66 >40 mg/dL [facility] DEPARTMENT OF PATHOLOGY AND GENOMIC MEDICINE LDL cholesterol 64Comment: Result <100 mg/dL [facility] DEPARTMENT OF obtained by direct LDL PATHOLOGY AND GENOMIC measurement MEDICINE Lipid panel interpretation SeeBelow [facility] DEPARTMENT OF Comment: PATHOLOGY AND GENOMIC Total Cholesterol (mg/dL) MEDICINE <200 Desirable 441-154Vykzhmmsej-xfpu >=240High Triglycerides (mg/dL) <150 Normal [id number]-ehix 200-499High >=500Very high HDL Cholesterol (mg/dL) <40Low (male) <40Low (female) LDL Cholesterol (mg/dL) <100 Optimal 100-129Near or above optimal 617-221Pjyerwuuar-ykid 160-189High >=190Very high Risk Catergories that modify [...] specimen Performing Organization Address City/State/Zipcode Phone Number [facility] DEPARTMENT OF PATHOLOGY AND [address] [place] [address] [employer] [place] Comprehensive metabolic panel (10/20/2017 4:00 AM) Sodium 141 135 - 148 mEq/L [facility] DEPARTMENT OF PATHOLOGY AND GENOMIC MEDICINE Potassium 3.9 3.5 - 5.0 mEq/L [facility] DEPARTMENT OF PATHOLOGY AND GENOMIC MEDICINE Chloride 101 98 - 112 mEq/L [facility] DEPARTMENT OF PATHOLOGY AND GENOMIC MEDICINE CO2 27 24 - 31 mEq/L [facility] DEPARTMENT OF PATHOLOGY AND GENOMIC MEDICINE Anion gap 13 7 - 15 mEq/L [facility] DEPARTMENT OF Comment: PATHOLOGY AND GENOMIC Starting from December , anion gap calculation MEDICINE no longer incorporates potassium. Please note the change. BUN 10 6 - 20 mg/dL [facility] DEPARTMENT OF PATHOLOGY AND GENOMIC MEDICINE Creatinine 1.2 0.7 - 1.2 mg/dL [facility] DEPARTMENT OF PATHOLOGY AND GENOMIC MEDICINE Glucose 102 (H) 65 - 99 mg/dL [facility] DEPARTMENT OF PATHOLOGY AND GENOMIC MEDICINE Calcium 9.7 8.3 - 10.2 mg/dL [facility] DEPARTMENT OF PATHOLOGY AND GENOMIC MEDICINE Protein 7.0 6.3 - 8.3 g/dL [facility] DEPARTMENT OF Comment: PATHOLOGY AND GENOMIC 4.6-7.0 g/dL MEDICINE 1 week 4.4-7.6 g/dL 7 months-1year5.1-7.3 g/dL 1-2 years5.6-7.5 g/dL >3 years6.0-8.0 g/dL 18-150 6.3-8.3 g/dL Albumin 4.1 3.5 - 5.0 g/dL [facility] DEPARTMENT OF PATHOLOGY AND GENOMIC MEDICINE A/G ratio 1.4 0.7 - 3.8 [facility] DEPARTMENT OF PATHOLOGY AND GENOMIC MEDICINE Alkaline phosphatase 60 40 - 129 U/L [facility] DEPARTMENT OF PATHOLOGY AND GENOMIC MEDICINE AST 20 10 - 50 U/L [facility] DEPARTMENT OF PATHOLOGY AND GENOMIC MEDICINE ALT 22 5 - 50 U/L [facility] DEPARTMENT OF PATHOLOGY AND GENOMIC MEDICINE Total bilirubin 0.9 0.0 - 1.2 mg/dL [facility] DEPARTMENT OF PATHOLOGY AND GENOMIC MEDICINE Specimen Plasma specimen Performing Organization Address City/[facility] [place] Phone Number [facility] DEPARTMENT OF PATHOLOGY AND [address] [place] [address] [facility] ECG 12 lead (10/19/2017 9:58 PM) Ventricular rate 65 [facility] MUSE Atrial rate 65 [facility] MUSE WA interval 120 [facility] MUSE QRSD interval 78 [facility] QT interval 382 [facility] MUSE QTC interval 397 [facility] MUSE QRS axis 1 43 [facility] MUSE T wave axis 28 [facility] MUSE EKG impression Normal sinus rhythm-Normal ECG-No previous [facility] MUSE ECGs available- Performing Organization Address City/[facility] Phone Number [facility] [address] [place] [address] after 05/18/2017
--- NOTE | 2018-05-19 05:40 | EDPHYS ---
Physician Documentation [facility] Name: Filiberto Barron Age: 22 yrs Sex: Male : 1995 Arrival Date: 05/19/2018 Time: 05:20 Bed 12 Private MD: ED Physician Charanjit Chris HPI: 05/19 05:28 This 22 yrs old Male presents to ER via Ambulatory with complaints of ps1 Stitches Removal. 05:28 patient had 30 stitches placed approximately 2 weeks ago. localized to lower left leg. ps1 left thigh and right thigh. Appears CDI. Historical: - Allergies: 05:27 No Known Allergies; ea - Home Meds: 05:27 Zoloft Oral [Active]; ea - PMHx: 05:27 Depression; suicidal ideation; ea - PSHx: 05:27 None; ea - Immunization history:: Adult Immunizations up to date. - Social history:: Smoking status: Patient/guardian denies using tobacco. - Ebola Screening: : No symptoms or risks identified at this time. ROS: 05:28 Constitutional: Negative for fever, chills, and weight loss, Eyes: Negative for injury, ps1 pain, redness, and discharge, Cardiovascular: Negative for chest pain, palpitations, and edema, Respiratory: Negative for shortness of breath, cough, wheezing, and pleuritic chest pain, Abdomen/GI: Negative for abdominal pain, nausea, vomiting, diarrhea, and constipation, MS/Extremity: Negative for injury and deformity, Skin: Negative for injury, rash, and discoloration, Neuro: Negative for headache, weakness, numbness, tingling, and seizure. Exam: 05:28 Constitutional: This is a well developed, well nourished patient who is awake, alert, ps1 and in no acute distress. Head/Face: Normocephalic, atraumatic. Eyes: Pupils equal round and reactive to light, extra-ocular motions intact. Lids and lashes normal. Conjunctiva and sclera are non-icteric and not injected. Chest/axilla: Normal chest wall appearance and motion. Nontender with no deformity. No lesions are appreciated. Cardiovascular: Regular rate and rhythm. No gallops, murmurs, or rubs. Normal PMI, no JVD. No pulse deficits. Respiratory: Lungs have equal breath sounds bilaterally, clear to auscultation and percussion. No rales, rhonchi or wheezes noted. No increased work of breathing, no retractions or nasal flaring. Abdomen/GI: Soft, non-tender, with normal bowel sounds. No distension or tympany. No guarding or rebound. No evidence of tenderness throughout. 05:28 Skin: multiple sutures. in lower and upper left leg and right thigh. Vital Signs: 05:31 BP 125 / 78; Pulse 78; Resp 18; Temp 97.7; Pulse Ox 99% on R/A; Weight 68.04 kg; Height ea 6 ft. 2 in. (187.96 cm); Pain 0/10; 05:31 Body Mass Index 19.26 (68.04 kg, 187.96 cm) ea Procedures: 05:36 Suture/Staple removal: Removed 30 sutures, from right leg and left leg, site appears ps1 well healed, dressed with Neosporin, Patient tolerated well. MDM: 05:36 Data reviewed: vital signs, nurses notes. ps1 05:39 Patient medically screened. ps1 Administered Medications: No medications were administered Disposition: 05/19/18 05:39 Discharged to Home. Impression: Encounter for removal of sutures. - Condition is Stable. - Discharge Instructions: Suture Removal, Care After. - Medication Reconciliation Form, Thank You Letter, Antibiotic Education, Prescription Opioid Use form. - Follow up: Emergency Department; When: As needed; Reason: Fever > 102 F, Worsening of condition. Follow up: Private Physician; When: As needed; Reason: Recheck today's complaints, Continuance of care, Re-evaluation by your physician. - Problem is an ongoing problem. - Symptoms are resolved. Signatures: Lily Andino RN RN ea Singer, Phillip, MD MD ps1 Corrections: (The following items were deleted from the chart) 05:55 05:39 05/19/2018 05:39 Discharged to Home. Impression: Encounter for removal of ea sutures. Condition is Stable. Forms are Medication Reconciliation Form, Thank You Letter, Antibiotic Education, Prescription Opioid Use. Follow up: Emergency Department; When: As needed; Reason: Fever > 102 F, Worsening of condition. Follow up: Private Physician; When: As needed; Reason: Recheck today's complaints, Continuance of care, Re-evaluation by your physician. Problem is an ongoing problem. Symptoms are resolved. ps1
--- NOTE | 2018-05-19 05:40 | ER ---
Nurse's Notes [facility] Name: Filiberto Barron Age: 22 yrs Sex: Male : 1995 Arrival Date: 05/19/2018 Time: 05:20 Bed 12 Private MD: Diagnosis: Encounter for removal of sutures Presentation: 05/19 05:25 Presenting complaint: Patient states: Pt states he is here to get stitches removed to ea his left leg. Transition of care: patient was not received from another setting of care. Onset of symptoms was May 19, 2018. Risk Assessment: Do you want to hurt yourself or someone else? Patient reports no desire to harm self or others. Initial Sepsis Screen: Does the patient meet any 2 criteria? No. Patient's initial sepsis screen is negative. Does the patient have a suspected source of infection? No. Patient's initial sepsis screen is negative. Care prior to arrival: None. 05:25 Method Of Arrival: Ambulatory ea 05:25 Acuity: FELI 5 ea Triage Assessment: 05:29 General: Appears in no apparent distress. General: Behavior is calm, cooperative, ea appropriate for age. Pain: Denies pain. Historical: - Allergies: 05:27 No Known Allergies; ea - Home Meds: 05:27 Zoloft Oral [Active]; ea - PMHx: 05:27 Depression; suicidal ideation; ea - PSHx: 05:27 None; ea - Immunization history:: Adult Immunizations up to date. - Social history:: Smoking status: Patient/guardian denies using tobacco. - Ebola Screening: : No symptoms or risks identified at this time. Screenin:28 Abuse screen: Denies threats or abuse. Nutritional screening: No deficits noted. ea Tuberculosis screening: No symptoms or risk factors identified. Fall Risk None identified. Assessment: 05:29 General: Appears in no apparent distress. Behavior is calm, cooperative, appropriate ea for age. Pain: Denies pain. Neuro: Level of Consciousness is awake, alert, obeys commands, Oriented to person, place, time, situation. Respiratory: Airway is patent Respiratory effort is even, unlabored, Respiratory pattern is regular, symmetrical. Derm: Sutures noted to right upper leg left upper leg left lower leg. 05:40 Reassessment: Dr. Chris in room assessed sutures and okayed the removal of sutures. 30 ea sutures removed from right and left legs, pt tolerated well. 05:51 Reassessment: Patient and/or family updated on plan of care and expected duration. Pain ea level reassessed. Patient is alert, oriented x 3, equal unlabored respirations, skin warm/dry/pink. Discharge instructions given to patient, verbalized the understanding of instructions. Vital Signs: 05:31 BP 125 / 78; Pulse 78; Resp 18; Temp 97.7; Pulse Ox 99% on R/A; Weight 68.04 kg; Height ea 6 ft. 2 in. (187.96 cm); Pain 0/10; 05:31 Body Mass Index 19.26 (68.04 kg, 187.96 cm) ea ED Course: 05:20 Patient arrived in ED. ds1 05:26 Triage completed. ea 05:28 Charanjit Chris MD is Attending Physician. ps1 05:28 Patient has correct armband on for positive identification. ea 05:29 Arm band placed on left wrist. ea 05:30 No provider procedures requiring assistance completed. Patient did not have IV access ea during this emergency room visit. 05:51 Removal of Removed sutures from lateral aspect of right thigh, medial aspect of left ea calf and left quadriceps Suture site is well healed Patient tolerated well. Administered Medications: No medications were administered Outcome: 05:39 Discharge ordered by . ps1 05:54 Discharged to home ambulatory, with significant other. ea 05:54 Condition: good 05:54 Discharge instructions given to patient, Instructed on discharge instructions, follow up and referral plans. Demonstrated understanding of instructions, follow-up care. 05:55 Patient left the ED. ea Signatures: Love Doran ds1 Lily Andino RN RN Charanjit Flanagan MD MD ps1 Corrections: (The following items were deleted from the chart) 05:54 05:29 Derm: Stitches noted to right upper leg left upper leg left lower leg. ea ea 06:02 05:40 Reassessment: 30 sutures removed from right and left legs ea ea
== END 2018-05-19 05:55 | disposition home or self-care (01) ==
LOC: ER 05:19
DX: Z48.02 Encounter for removal of sutures (principal)
CPT/HCPCS: 99281

== ENCOUNTER 2018-05-27 02:19 | Emergency (ER) | payer SELFPAY ==
--- OUTSIDE RECORDS SUMMARY | 2018-05-27 02:22 | XMS REPORT ---
:1995 [facility] Address [address] [place] [address] Care Team Providers Name Role Phone UNKNOWN, [...] race is not provided, and the patient isAfrican-Bulgarian, multiply by 1.212. If sex is not provided, and thepatient is female, multiply by 0.742. Results for patients <18 years ofage have not been validated by the MDRD study and should be interpretedwith caution.eGFR Result Interpretation:eGFR > or=60 is in the Normal RangeeGFR < 60 may mean kidney diseaseeGFR < 15 may mean kidney failureRanges recommended by the National Kidney Foundation,http://nkdep.nih.go v RPR, [id number] 12:15:00 Test Item Value Reference Range Comments RPR (test code=RPR) Non-Reactive Non-Reactive Lipid [id number] 11:22:00 Test Item Value Reference Range Comments Cholesterol (test 149 mg/dL 0-200 code=CHOL) Triglycerides (test 125 mg/dL 9-200 code=TRIG) HDL (test code=HDL) 51 mg/dL 40-60 Chol/HDL (test 2.9 Ratio 0.0-5.0 code=CHOLPHDL) LDL, Calculated (test 73 0-130 (NOTE)RISK OF HEART code=LDLC) DISEASEPublished by [place] Heart AssociationAnalyte Optimal Boderline Increased RiskCHOL <200 200-239 >240TRIG <150 150-199 >200HDL Male: >60 <40HDL Female: >60 <50LDL <100 130-159 >160LDL NEAR OPTIMAL IS 100-129 VLDL (test code=VLDL) 25 mg/dL 5-40 LDL/HDL (test code=LDLPHDL) 1 Thyroid Stimulating Hormone (TSH)2017-07-28 08:55:00 Test Item Value Reference Range Comments TSH (test code=TSH) 2.44 mIU/mL 0.270-4.200
--- OUTSIDE RECORDS SUMMARY | 2018-05-27 02:22 | XMS REPORT | Clinical Summary ---
:1995 Author Organization [facility] Address [address] [place] [address] Care Team Providers Name Role Phone Asked, [...] Type Specialty Care Team Description 10/21/2017 Documentation Crystallography Teacher Shereen Ken LPC 10/19/2017 - Hospital Encounter Psychiatry Alexei Felix MD 10/21/2017 Jayesh Alford MD after 05/26/2017 Social History Tobacco Use Types Packs/Day Years Used Date Former Smoker Cigarettes Quit: 10/19/2016 Smokeless Tobacco: Never Used Tobacco Cessation: Counseling Given: No Alcohol Use Drinks/Week oz/Week Comments Yes 5 Cans of beer 3.0 daily Sex Assigned at Date Recorded Not on file Last Filed Vital Signs Vital Sign Reading Time Taken Blood Pressure 134/79 10/21/2017 6:15 AM [employer] ESTATE RECRUITER Pulse 79 10/21/2017 6:15 AM REAL ESTATE RECRUITER Temperature 36.3 C (97.3 F) 10/21/2017 6:15 AM [employer] ESTATE RECRUITER Respiratory Rate 18 10/21/2017 6:15 AM REAL ESTATE RECRUITER Oxygen Saturation 99% 10/21/2017 6:15 AM REAL ESTATE RECRUITER Inhaled Oxygen Concentration - - Weight 64.2 kg (141 lb 8 oz) 10/19/2017 12:24 PM REAL ESTATE RECRUITER Height 188 cm (6' 2") 10/19/2017 12:24 PM REAL ESTATE RECRUITER Body Mass Index 18.17 10/19/2017 12:24 PM REAL ESTATE RECRUITER Plan of Treatment Not on file Procedures Procedure Name Priority Date/Time Associated Comments Diagnosis CONSULT TO OSTOMY CARE Routine 10/20/2017 12:56 NURSE PM [employer]STATE RECRUITER HC COMPLETE BLD COUNT Routine 10/20/2017 5:00 Results for this W/AUTO DIFF AM [employer] ESTATE RECRUITER procedure are in the results section. HEMOGLOBIN A1C Routine 10/20/2017 5:00 Results for this AM [employer] ESTATE RECRUITER procedure are in the results section. ZZESTIMATED GFR Routine 10/20/2017 4:00 Results for this AM [employer] ESTATE RECRUITER procedure are in the results section. ALCOHOL LEVEL, BLOOD Routine 10/20/2017 4:00 Results for this AM [employer] ESTATE RECRUITER procedure are in the results section. THYROID STIMULATING Routine 10/20/2017 4:00 Results for this HORMONE AM [employer] ESTATE RECRUITER procedure are in the results section. LIPID PANEL Routine 10/20/2017 4:00 Results for this AM [employer] ESTATE RECRUITER procedure are in the results section. COMPREHENSIVE Routine 10/20/2017 4:00 Results for this METABOLIC PANEL AM REAL ESTATE RECRUITER procedure are in the results section. ECG 12-LEAD STAT 10/19/2017 9:58 Results for this PM [employer] ESTATE RECRUITER procedure are in the results section. after 05/26/2017 Results CBC with platelet and differential (10/20/2017 5:00 AM) WBC 9.71 4.50 - 11.00 k/uL [facility] DEPARTMENT OF PATHOLOGY AND GENOMIC MEDICINE RBC 4.72 4.40 - 6.00 m/uL [facility] DEPARTMENT OF PATHOLOGY AND GENOMIC MEDICINE HGB 14.0 14.0 - 18.0 g/dL [facility] DEPARTMENT OF PATHOLOGY AND GENOMIC MEDICINE HCT 40.8 (L) 41.0 - 51.0 % [facility] DEPARTMENT OF PATHOLOGY AND GENOMIC MEDICINE MCV 86.4 82.0 - 100.0 fL [facility] DEPARTMENT OF PATHOLOGY AND GENOMIC MEDICINE MCH 29.7 27.0 - 34.0 pg [facility] DEPARTMENT OF PATHOLOGY AND GENOMIC MEDICINE MCHC 34.3 31.0 - 37.0 g/dL [facility] DEPARTMENT OF PATHOLOGY AND GENOMIC MEDICINE RDW - SD 40.1 37.0 - 55.0 fL [facility] DEPARTMENT OF PATHOLOGY AND GENOMIC MEDICINE MPV 11.9 8.8 - 13.2 fL [facility] DEPARTMENT OF PATHOLOGY AND GENOMIC MEDICINE Platelet count 179 150 - 400 k/uL [facility] DEPARTMENT OF PATHOLOGY AND GENOMIC MEDICINE Nucleated RBC 0.00 /100 WBC [facility] DEPARTMENT OF PATHOLOGY AND GENOMIC MEDICINE Neutrophils 52.6 39.0 - 69.0 % [facility] DEPARTMENT OF PATHOLOGY AND GENOMIC MEDICINE Lymphocytes 36.6 25.0 - 45.0 % [facility] DEPARTMENT OF PATHOLOGY AND GENOMIC MEDICINE Monocytes 9.2 0.0 - 10.0 % [facility] DEPARTMENT OF PATHOLOGY AND GENOMIC MEDICINE Eosinophils 1.1 0.0 - 5.0 % [facility] DEPARTMENT OF PATHOLOGY AND GENOMIC MEDICINE Basophils 0.4 0.0 - 1.0 % [facility] DEPARTMENT OF PATHOLOGY AND GENOMIC MEDICINE Immature granulocytes 0.1Comment: 0.0 - 1.0 % [facility] DEPARTMENT OF "Immature PATHOLOGY AND GENOMIC granulocytes" MEDICINE (promyelocytes, myelocytes, metamyelocytes) Specimen Blood Performing Organization Address [facility] Phone Number [facility] DEPARTMENT OF PATHOLOGY AND [address] [place], [place] [id number] [facility] Hemoglobin A1c (10/20/2017 5:00 AM) Hemoglobin A1C 5.4 4.0 - 5.6 % [facility] DEPARTMENT OF Comment: PATHOLOGY AND GENOMIC [...] well characterized. Specimen Blood Performing Organization Address City/[facility] Phone Number [facility] DEPARTMENT OF PATHOLOGY AND [address] [place] [address] [employer] Estimated GFR (10/20/2017 4:00 AM) GFR Non Af Amer 75 mL/min/1.73 m2 [facility] DEPARTMENT OF PATHOLOGY AND GENOMIC MEDICINE GFR Af Amer >90 mL/min/1.73 m2 [facility] DEPARTMENT OF Comment: PATHOLOGY AND GENOMIC [...] Americans. Specimen Plasma specimen Performing Organization Address City/[facility] Phone Number [facility] DEPARTMENT OF PATHOLOGY AND [address] [place] [id number] [place] [address] Thyroid stimulating hormone (10/20/2017 4:00 AM) TSH 1.79 0.27 - 4.20 uIU/mL [facility] DEPARTMENT OF PATHOLOGY AND GENOMIC MEDICINE Specimen Plasma specimen Performing Organization Address City/[facility] Phone Number [facility] DEPARTMENT OF PATHOLOGY AND [address] [place] [phone] [facility] Alcohol level, blood (10/20/2017 4:00 AM) Alcohol None Detected mg/dL [facility] DEPARTMENT OF PATHOLOGY Comment: AND GENOMIC MEDICINE Normal None Detected Legal Intoxication in [place]80 mg/dL (0.08%) - Whole Blood Toxic [id number] mg/dL (0.2%) Potentially [id number] - 500 mg/dL (0.35 - 0.5%) Alcohol percent None Detected % [facility] DEPARTMENT OF PATHOLOGY AND GENOMIC MEDICINE Specimen Plasma specimen Performing Organization Address [facility] Phone Number [facility] DEPARTMENT OF PATHOLOGY AND [address] [place] [phone] [facility] Lipid panel (10/20/2017 4:00 AM) Cholesterol 126 <200 mg/dL [facility] DEPARTMENT OF PATHOLOGY AND GENOMIC MEDICINE Triglycerides 71 <150 mg/dL [facility] DEPARTMENT OF PATHOLOGY AND GENOMIC MEDICINE HDL cholesterol 66 >40 mg/dL [facility] DEPARTMENT OF PATHOLOGY AND GENOMIC MEDICINE LDL cholesterol 64Comment: Result <100 mg/dL [facility] DEPARTMENT OF obtained by direct LDL PATHOLOGY AND GENOMIC measurement MEDICINE Lipid panel interpretation SeeBelow [facility] DEPARTMENT OF Comment: PATHOLOGY AND GENOMIC Total Cholesterol (mg/dL) MEDICINE <200 Desirable 500-142Qixxwdwjcc-qrja >=240High Triglycerides (mg/dL) <150 Normal 057-260Sxncvtbltg-yzlw 200-499High >=500Very high HDL Cholesterol (mg/dL) <40Low (male) <40Low (female) LDL Cholesterol (mg/dL) <100 Optimal 100-129Near or above optimal 515-271Xsbqugizxu-mhit 160-189High >=190Very high Risk Catergories that modify [...] specimen Performing Organization Address City/State/Zipcode Phone Number [facility] DEPARTMENT OF PATHOLOGY [facility] [place] [address] [facility] Comprehensive metabolic panel (10/20/2017 4:00 AM) Sodium 141 135 - 148 mEq/L [facility] DEPARTMENT OF PATHOLOGY AND GENOMIC MEDICINE Potassium 3.9 3.5 - 5.0 mEq/L [facility] DEPARTMENT OF PATHOLOGY AND GENOMIC MEDICINE Chloride 101 98 - 112 mEq/L [facility] DEPARTMENT OF PATHOLOGY AND GENOMIC MEDICINE CO2 27 24 - 31 mEq/L [facility] DEPARTMENT OF PATHOLOGY AND GENOMIC MEDICINE Anion gap 13 7 - 15 mEq/L [facility] DEPARTMENT OF Comment: PATHOLOGY AND GENOMIC Starting from December , anion gap calculation MEDICINE no longer incorporates potassium. Please note the change. BUN 10 6 - 20 mg/dL [facility] DEPARTMENT OF PATHOLOGY AND GENOMIC MEDICINE Creatinine 1.2 0.7 - 1.2 mg/dL [facility] DEPARTMENT OF PATHOLOGY AND GENOMIC MEDICINE Glucose 102 (H) 65 - 99 mg/dL [facility] DEPARTMENT OF PATHOLOGY AND GENOMIC MEDICINE Calcium 9.7 8.3 - 10.2 mg/dL [facility] DEPARTMENT OF PATHOLOGY AND GENOMIC MEDICINE Protein 7.0 6.3 - 8.3 g/dL [facility] DEPARTMENT OF Comment: PATHOLOGY AND GENOMIC 4.6-7.0 g/dL MEDICINE 1 week 4.4-7.6 g/dL 7 months-1year5.1-7.3 g/dL 1-2 years5.6-7.5 g/dL >3 years6.0-8.0 g/dL 18-150 6.3-8.3 g/dL Albumin 4.1 3.5 - 5.0 g/dL [facility] DEPARTMENT OF PATHOLOGY AND GENOMIC MEDICINE A/G ratio 1.4 0.7 - 3.8 [facility] DEPARTMENT OF PATHOLOGY AND GENOMIC MEDICINE Alkaline phosphatase 60 40 - 129 U/L [facility] DEPARTMENT OF PATHOLOGY AND GENOMIC MEDICINE AST 20 10 - 50 U/L [facility] DEPARTMENT OF PATHOLOGY AND GENOMIC MEDICINE ALT 22 5 - 50 U/L [facility] DEPARTMENT OF PATHOLOGY AND GENOMIC MEDICINE Total bilirubin 0.9 0.0 - 1.2 mg/dL [facility] DEPARTMENT OF PATHOLOGY AND GENOMIC MEDICINE Specimen Plasma specimen Performing Organization Address City/[facility] Phone Number [facility] DEPARTMENT OF PATHOLOGY AND [address] [place] [phone] [facility] ECG 12 lead (10/19/2017 9:58 PM) Ventricular rate 65 [facility] MUSE Atrial rate 65 [facility] MUSE SD interval 120 [facility] MUSE QRSD interval 78 [facility] MUSE QT interval 382 [facility] MUSE QTC interval 397 [facility] MUSE QRS axis 1 43 [facility] MUSE T wave axis 28 [facility] MUSE EKG impression Normal sinus rhythm-Normal ECG-No previous [facility] MUSE ECGs available- Performing Organization Address City/[facility] Phone Number [place] [address] [place] [address] after 05/26/2017
[2018-05-27 03:06] LABS: Absolute Lymphocytes (CBC) 2.5 K/uL (0.7-4.9); Absolute Monocytes 0.5 K/uL (0.1-1.3); Absolute Neutrophil 2.8 K/uL (1.8-8.0); Basophils % 0.5 % (0-1.3); Eosinophils % 0.6 % (0-4.4); Hematocrit 43.7 % (39.6-49.0); Lymphocytes % 42.7 % (15.3-44.8); MCH 29.4 pg (27.0-35.0); MCV 85.2 fL (80-100); MPV 10.7 fL (7.6-11.3); Monocytes % 8.4 % (3.3-12.3); RBC Red Blood Cell Count 5.14 M/uL (4.33-5.43)
[2018-05-27 03:15] LABS: Protime INR 1.02
[2018-05-27 03:36] LABS: ALT/SGPT 15 U/L (12-78); AST/SGOT 18 U/L (15-37); Albumin 4.4 g/dL (3.4-5.0); Alkaline Phosphatase 63 U/L (45-117); BUN Blood Urea Nitrogen 6 mg/dL (7-18); Bicarbonate 28 mmol/L (21-32); Bilirubin Direct 0.2 mg/dL (0-0.2); Bilirubin Total 0.6 mg/dL (0.2-1.0); Glucose Level 95 mg/dL (74-106); Potassium 3.9 mmol/L (3.5-5.1); Protein, Total 7.3 g/dL (6.4-8.2); Sodium Level 143 mmol/L (136-145)
[2018-05-27 03:36] LABS: Barbiturates NEGATIVE (NEGATIVE); Benzodiazepines POSITIVE (NEGATIVE); Cocaine NEGATIVE (NEGATIVE); METHAMPHETAM NEGATIVE (NEGATIVE); Methadone NEGATIVE (NEGATIVE); Opiates NEGATIVE (NEGATIVE); Phencyclidine NEGATIVE (NEGATIVE); THC Cannibis POSITIVE (NEGATIVE)
[2018-05-27 03:38] LABS: Urine Blood NEGATIVE (NEG); Urine Glucose NEGATIVE (NEG); Urine Protein NEGATIVE (NEG); Urine Specific Gravity <1.005 (1.005-1.030); Urine pH 5.5 (5.0-7.0)
[2018-05-27] MEDS ORDERED: LIDOCAINE 2% MPF 5 ML VIAL ONE (07:41)
--- NOTE | 2018-05-27 12:09 | EKG ---
Test Date: 2018-05-27 Test Time: 03:00:43 Plumber: ANN MEASUREMENT RESULTS: Intervals: Rate: 94 IN: 148 QRSD: 76 QT: 334 QTc: 417 [place]: P: 70 IN: 148 QRS: 66 T: 41 INTERPRETIVE STATEMENTS: Normal sinus rhythm Normal ECG Compared to ECG 10/19/2017 03:01:36 Sinus tachycardia no longer present Electronically Signed On 05-27-18 12:07:17 CDT by Travis Cates
--- NOTE | 2018-05-27 15:39 | ER ---
Nurse's Notes [facility] Name: Filiberto Barron Age: 22 yrs Sex: Male : 1995 Arrival Date: 05/27/2018 Time: 02:26 Bed 20 Private MD: Diagnosis: Presentation: 05/27 02:26 Presenting complaint: EMS states: PD was on scene and reported patient has being ao suicidal and tried to cut himself in the right arm. Transition of care: patient was not received from another setting of care. Onset of symptoms is unknown. Risk Assessment: Do you want to hurt yourself or someone else? Patient reports desire/thoughts of hurting themselves or someone else. Provider notified. Initial Sepsis Screen: Does the patient meet any 2 criteria? No. Patient's initial sepsis screen is negative. Does the patient have a suspected source of infection? Yes: Skin breakdown/wound. Care prior to arrival: None. 02:26 Method Of Arrival: EMS: [facility] ao 02:26 Acuity: FELI 2 ao Triage Assessment: 02:42 General: Appears in no apparent distress. uncomfortable, Behavior is calm, cooperative. ao Pain: Complains of pain in left arm. EENT: No signs and/or symptoms were reported regarding the EENT system. Neuro: Level of Consciousness is awake, alert, obeys commands, Oriented to person, place, time, situation, Appropriate for age Moves all extremities. Full function Speech is normal, Facial symmetry appears normal, Pupils are PERRLA. Cardiovascular: Capillary refill < 3 seconds Patient's skin is warm and dry. Respiratory: Airway is patent Respiratory effort is even, unlabored, Respiratory pattern is regular, symmetrical. GI: Abdomen is flat. : No signs and/or symptoms were reported regarding the genitourinary system. Derm: Wound noted left arm Wound is Three cul in the arm. Bleeding has being controled. Historical: - Allergies: 02:42 No Known Allergies; ao - Home Meds: 02:42 Zoloft Oral [Active]; ao - PMHx: 02:42 Depression; suicidal ideation; ao - PSHx: 02:42 None; ao - Immunization history:: Adult Immunizations up to date. - Social history:: Smoking status: Patient/guardian denies using tobacco, Patient uses alcohol, occasionally. street drugs, marijuana. - Ebola Screening: : Patient negative for fever greater than or equal to 101.5 degrees Fahrenheit, and additional compatible Ebola Virus Disease symptoms Patient denies exposure to infectious person Patient denies travel to an Ebola-affected area in the 21 days before illness onset. Screenin:42 Abuse screen: Denies threats or abuse. Denies injuries from another. Nutritional ao screening: No deficits noted. Tuberculosis screening: No symptoms or risk factors identified. Fall Risk None identified. Assessment: 02:45 General: See triage assessment. ao 02:47 Reassessment: PD at bedside talking to patient. Patient admitted as involuntary ao according to PD. 03:34 Reassessment: Patient appears in no apparent distress at this time. Patient and/or ao family updated on plan of care and expected duration. Pain level reassessed. Patient in bed with no ss of distress. Sitter in front of patient's room. Patient under no distress at this time. Patient seems calm. 04:41 Reassessment: Patient appears in no apparent distress at this time. Patient and/or ao family updated on plan of care and expected duration. Pain level reassessed. Patient resting in bed under no distress. Sitter in front of patients room. Waiting on Phyc evaluation. 05:54 Reassessment: Patient appears in no apparent distress at this time. Patient sleeping at ao this time. patient seem in no distress. Sitter in front of patient's room. 07:05 General: Smells of alcohol. General: Appears in no apparent distress. comfortable, em Behavior is calm, cooperative, pt currently denies being SI/HI, states "it was just done in the moment and this is just getting me nowhere". Pain: Complains of pain in palmar aspect of left forearm. Neuro: Level of Consciousness is awake, alert, obeys commands, Oriented to person, place, time, situation. Cardiovascular: Capillary refill < 3 seconds Patient's skin is warm and dry. Respiratory: Airway is patent Respiratory effort is even, unlabored, Respiratory pattern is regular, symmetrical. GI: Abdomen is flat. : No signs and/or symptoms were reported regarding the genitourinary system. EENT: No signs and/or symptoms were reported regarding the EENT system. Derm: Wound noted palmar aspect of left forearm. Musculoskeletal: Range of motion: intact in all extremities. Injury Description: Laceration sustained to palmar aspect of left forearm is clean, 2.6 to 7.5 cm long, not bleeding. 07:05 Reassessment: sitter at bedside. em 07:05 Reassessment: I agree with assessment completed by Baljit Camarillo LVN . aa5 07:30 Reassessment: Patient appears in no apparent distress at this time. Dr. Guerrier at em bedside. 08:22 Reassessment: Patient appears in no apparent distress at this time. Patient and/or em family updated on plan of care and expected duration. Pain level reassessed. Patient is alert, oriented x 3, equal unlabored respirations, skin warm/dry/pink. Dr. Guerrier at bedside suturing pt. 09:35 Reassessment: Patient appears in no apparent distress at this time. Patient and/or em family updated on plan of care and expected duration. Pain level reassessed. Patient is alert, oriented x 3, equal unlabored respirations, skin warm/dry/pink. [facility] patient access representative at bedside. 10:30 Reassessment: Patient appears in no apparent distress at this time. Patient and/or em family updated on plan of care and expected duration. Pain level reassessed. Patient is alert, oriented x 3, equal unlabored respirations, skin warm/dry/pink. refused to eat breakfast tray, pt reports not hungry Patient states feeling better. 12:50 Reassessment: Patient appears in no apparent distress at this time. Patient and/or em family updated on plan of care and expected duration. Pain level reassessed. Patient is alert, oriented x 3, equal unlabored respirations, skin warm/dry/pink. 13:00 Reassessment: pt request personal belongings so pt raj can take personal things home.em 13:18 Reassessment: Patient appears in no apparent distress at this time. pt states, "you em can't hold me against my will, since I cut myself on accident, accidents happen all the time" pt raj at bedside reports that he is not suicidal and request to speak to administration on the legality of hold, pt instructed that he told PD that he wanted to kill himself and went to grab a knife and was placed on an emergency halfway order per CELINA FIELD. pt raj request a copy of the halfway order, copy given to raj. 14:10 Reassessment: pt fiance request to speak with the doctor, states pt is not suicidal, pt em also states, "not suicidal and that he has a blue warrant and we cannot keep him against his will and he won't go to [facility]." provider notified that pt request to speak with him. 14:30 Reassessment: Dr. Guerrier at bedside speaking to patient.. aa5 14:54 Reassessment: Pt eloped from ER after using the restroom. [place] [facility] notified. . aa5 15:30 Reassessment: [place] [facility] reports inability to locate patient at this time. PD was aa5 notified pt has IV in place. . Psych: 02:45 Subjective: Patient's mood is sad, Delusions are denied, Hallucinations are denied ao Having thoughts of suicide. Plan for suicide is Cutting self. Objective: Patient is cooperative, Speech is normal, Affect is appropriate. Interventions: Removed personal items and placed in bag. Suicide Risk Assessment: Sad Person Scale: Sex of patient: Male: Score 1 point. Age of patient: Score 1 point if patient 15-34. Depression: Score 1 point if signs of depression are present. Previous Attempt: Score 1 point if patient has previously attempted suicide. Substance Abuse: Score 1 point if patient abuses alcohol or drugs. Rational Thinking: Score 0 point if patient has rational thinking. Social Support: Score 0 if social support is present/available. Organized Plan: Score 1 point if patient had a plan in place. Relationship: Score 1 point if patient is , , , or for a single male Chronic Sickness: Score 0 point if patient does not have a chronic illness, debilitating, or severe disorder. TOTAL POINTS: If total points are 7-10, the proposed clinical action is to hospitalize or commit. Implement suicide precautions. Safety Checks: Personal items have been removed. Patient uses Last use was 60 minutes ago. Patient uses marijuana. Commitment: Patient will be an involuntary commitment. Vital Signs: 02:33 BP 117 / 73; Pulse 104; Resp 18; Temp 98.0(O); Pulse Ox 98% on R/A; Weight 61.23 kg ao (R); Height 5 ft. 6 in. (167.64 cm) (R); Pain 3/10; 04:07 BP 126 / 77; Pulse 93; Resp 16; Pulse Ox 100% on R/A; mw2 06:42 BP 104 / 48; Pulse 98; Resp 16; Pulse Ox 99% on R/A; mw2 07:23 BP 128 / 80; Pulse 96; Resp 18; Temp 97.7(O); Pulse Ox 100% on R/A; em 11:35 BP 124 / 93; Pulse 76; Resp 18; Temp 97.3; aa5 02:33 Body Mass Index 21.79 (61.23 kg, 167.64 cm) ao ED Course: 02:26 Patient arrived in ED. fc 02:26 Say Menon, [facility] is Primary Nurse. ao 02:33 Lc Wolff MD is Attending Physician. gs 02:33 Triage completed. ao 02:36 Inserted saline lock: 20 gauge in right antecubital area, using aseptic technique. mw2 Blood collected. 02:40 Arm band placed on right wrist. Patient notified of wait time. ao 02:40 Placed in gown. Bed in low position. Valuables inventory done. Locked in safe. mw2 02:45 Safety checks: Items removed: yes. Door open/sign placed on door: yes. Family/friend mw2 present: no. Sitter present: Yes. 02:47 Patient has correct armband on for positive identification. residential monitor on. Pulse ao ox on. NIBP on. 03:00 Safety checks: Items removed: yes. Door open/sign placed on door: yes. Family/friend mw2 present: no. Sitter present: Yes. 03:15 Safety checks: Items removed: yes. Door open/sign placed on door: yes. Family/friend mw2 present: no. Sitter present: Yes. 03:30 Safety checks: Items removed: yes. Door open/sign placed on door: yes. Family/friend mw2 present: no. Sitter present: Yes. 03:45 Safety checks: Items removed: yes. Door open/sign placed on door: yes. Family/friend mw2 present: no. Sitter present: Yes. 04:00 Safety checks: Items removed: yes. Door open/sign placed on door: yes. Family/friend mw2 present: no. Sitter present: Yes. 04:15 Safety checks: Items removed: yes. Door open/sign placed on door: yes. Family/friend mw2 present: no. Sitter present: Yes. 04:30 Safety checks: Items removed: yes. Door open/sign placed on door: yes. Family/friend mw2 present: no. Sitter present: Yes. 04:45 Safety checks: Items removed: yes. Door open/sign placed on door: yes. Family/friend mw2 present: no. Sitter present: Yes. 05:00 Safety checks: Items removed: yes. Door open/sign placed on door: yes. Family/friend mw2 present: no. Sitter present: Yes. 05:15 Safety checks: Items removed: yes. Door open/sign placed on door: yes. Family/friend mw2 present: no. Sitter present: Yes. 05:30 Safety checks: Items removed: yes. Door open/sign placed on door: yes. Family/friend mw2 present: no. Sitter present: Yes. 05:45 Safety checks: Items removed: yes. Door open/sign placed on door: yes. Family/friend mw2 present: no. Sitter present: Yes. 06:00 Safety checks: Items removed: yes. Door open/sign placed on door: yes. Family/friend mw2 present: no. Sitter present: Yes. 06:15 Safety checks: Items removed: yes. Door open/sign placed on door: yes. Family/friend mw2 present: no. Sitter present: Yes. 06:30 Safety checks: Items removed: yes. Door open/sign placed on door: yes. Family/friend mw2 present: no. Sitter present: Yes. 06:45 Safety checks: Items removed: yes. Door open/sign placed on door: yes. Family/friend mw2 present: no. Sitter present: Yes. 07:00 Report given to DAVIN Smiley. ao 07:00 Safety checks: Items removed: yes. Door open/sign placed on door: yes. Family/friend mh5 present: no. Sitter present: Yes. 07:15 Safety checks: Items removed: yes. Door open/sign placed on door: yes. Family/friend mh5 present: no. Sitter present: Yes. 07:17 Baljit Camarillo LVN is Primary Nurse. em 07:30 Safety checks: Items removed: yes. Door open/sign placed on door: yes. Family/friend mh5 present: no. Sitter present: Yes. 07:45 Safety checks: Items removed: yes. Door open/sign placed on door: yes. Family/friend mh5 present: no. Sitter present: Yes. 08:00 Safety checks: Items removed: yes. Door open/sign placed on door: yes. Family/friend mh5 present: no. Sitter present: Yes. 08:15 Safety checks: Items removed: no. Reason for not removing items: Door open/sign placed mh5 on door: yes. Family/friend present: no. Sitter present: Yes. 08:23 Assist provider with laceration repair on palmar aspect of left forearm that was em between 2.6 to 7.5 cm using sutures. Set up tray. Performed by Alex Guerrier MD Dressed with 4X4s, Kerlix, Neosporin, Patient tolerated well. 08:30 Safety checks: Items removed: yes. Door open/sign placed on door: yes. Family/friend mh5 present: no. Sitter present: Yes. 08:30 Safety checks: Items removed:. Diet: Patient given a regular meal tray. mh5 08:35 [facility] was called out. [facility] never notified them about the patient per [facility]. ag 08:45 Safety checks: Items removed: yes. Door open/sign placed on door: yes. Family/friend mh5 present: no. Sitter present: Yes. 09:00 Safety checks: Items removed: yes. Door open/sign placed on door: yes. Family/friend mh5 present: no. Sitter present: Yes. 09:15 Safety checks: Items removed: yes. Door open/sign placed on door: yes. Family/friend mh5 present: no. Sitter present: Yes. 09:22 Safety checks: Family/friend present: Other: [facility] WITH ED [facility] WITH PATIENT . mh5 09:30 Safety checks: Items removed: yes. Door open/sign placed on door: yes. Family/friend mh5 present: no. Sitter present: Yes. 09:45 Safety checks: Items removed: yes. Door open/sign placed on door: yes. Family/friend mh5 present: no. Sitter present: Yes. 10:00 Safety checks: Items removed: yes. Door open/sign placed on door: yes. Family/friend mh5 present: no. Sitter present: Yes. 10:08 ETOH Level Sent. mh5 10:15 Safety checks: Items removed: yes. Door open/sign placed on door: yes. Family/friend mh5 present: no. Sitter present: Yes. 10:30 Safety checks: Items removed: yes. Door open/sign placed on door: yes. Family/friend mh5 present: no. Sitter present: Yes. 10:37 Debora from [facility] called and said they have no beds for men and women. Possible ag Tuesday they will have beds after discharge. 10:43 Andie with [facility] has no beds but they are pending discharges. ag 10:45 Safety checks: Items removed: yes. Door open/sign placed on door: yes. Family/friend dc1 present: no. Sitter present: Yes. 11:00 Safety checks: Items removed: yes. Door open/sign placed on door: yes. Family/friend mh5 present: no. Sitter present: Yes. 11:15 Safety checks: Items removed: yes. Door open/sign placed on door: yes. Family/friend dc1 present: no. Sitter present: Yes. 11:30 Safety checks: Items removed: yes. Door open/sign placed on door: yes. Family/friend dc1 present: no. Sitter present: Yes. 11:45 Safety checks: Items removed: yes. Door open/sign placed on door: yes. Family/friend dc1 present: yes. Sitter present: Yes. 12:00 Safety checks: Items removed: yes. Door open/sign placed on door: yes. Family/friend dc1 present: yes. no. Sitter present: Yes. 12:00 Diet: Patient given a regular meal tray. dc1 12:15 Safety checks: Items removed: yes. Door open/sign placed on door: yes. Family/friend dc1 present: yes. Sitter present: Yes. 12:30 Safety checks: Items removed: Door open/sign placed on door: yes. Family/friend dc1 present: yes. Sitter present: Yes. 12:45 Safety checks: Items removed: yes. Door open/sign placed on door: yes. Family/friend mh5 present: yes. Family/friends encouraged to stay with patient. Sitter present: Yes. 13:00 Safety checks: Items removed: yes. Door open/sign placed on door: yes. Family/friend dc1 present: yes. Sitter present: Yes. 13:15 Safety checks: Items removed: yes. Door open/sign placed on door: yes. Family/friend dc1 present: yes. Sitter present: Yes. 13:30 Safety checks: Items removed: yes. Door open/sign placed on door: yes. Family/friend dc1 present: yes. Sitter present: Yes. 13:45 Safety checks: Items removed: yes. Door open/sign placed on door: yes. Family/friend dc1 present: yes. Sitter present: Yes. 14:00 Safety checks: Items removed: yes. Door open/sign placed on door: yes. Family/friend dc1 present: no. Sitter present: Yes. 14:15 Safety checks: Items removed: yes. Door open/sign placed on door: yes. Family/friend dc1 present: no. Sitter present: Yes. 14:30 Safety checks: Items removed: yes. Door open/sign placed on door: yes. Family/friend dc1 present: no. Sitter present: Yes. 14:45 Safety checks: Items removed: yes. Door open/sign placed on door: yes. Family/friend dc1 present: no. Sitter present: Yes. Administered Medications: No medications were administered Outcome: 14:54 Patient left the ED. aa5 14:54 Eloped from patient exam room, Discovered gone at 1454 by sitter. aa5 Signatures: Isidra Cardona RN RN Baljit Lanier, PACU RN PACU RN Barbara Romero RN RN 5 Lory Phelps Alex, RN RN ao Martinez, Maria [facility] Lc Wolff MD MD gs [place], [facility] Crawley dc1 Corrections: (The following items were deleted from the chart) 02:40 02:33 BP 117 / 73; Pulse 121bpm; Resp 18bpm; Pulse Ox 98% RA; Temp 98.0F Oral; 61.23 kg ao Reported; Height 5 ft. 6 in. Reported; BMI: 21.7; Pain 3/10; ao 03:10 03:08 Inserted saline lock: 20 gauge in right antecubital area, using aseptic 2 technique. Blood collected. 2 03:30 03:29 Safety checks: Items removed: yes. Door open/sign placed on door: yes. mw2 Family/friend present: no. Sitter present: Yes. mw2 07:22 07:05 General: Appears in no apparent distress. comfortable, Behavior is calm, em cooperative, pt currently denies being SI/HI, states "it was just done in the moment and this is just getting me nowhere". em 08:23 02:45 No provider procedures requiring assistance completed. ao em 10:45 10:30 Safety checks: Items removed: yes. Door open/sign placed on door: yes. dc1 Family/friend present: no. Sitter present: Yes. dc1 11:27 11:25 Safety checks: Items removed: yes. Door open/sign placed on door: yes. dc1 Family/friend present: no. Sitter present: Yes. dc1 12:02 12:00 Safety checks: Items removed: yes. Door open/sign placed on door: yes. dc1 Family/friend present: yes. no. Sitter present: Yes. dc1 12:18 12:16 Safety checks: Items removed: yes. Door open/sign placed on door: yes. dc1 Family/friend present: yes. Sitter present: Yes. dc1 13:04 13:02 Safety checks: Items removed: yes. Door open/sign placed on door: yes. dc1 Family/friend present: yes. Sitter present: Yes. dc1 13:27 13:26 Safety checks: Items removed: yes. Door open/sign placed on door: yes. dc1 Family/friend present: yes. Sitter present: Yes. dc1 13:32 13:31 Safety checks: Items removed: yes. Door open/sign placed on door: yes. dc1 Family/friend present: yes. Sitter present: Yes. dc1 14:44 11:35 BP 124 / 93; Pulse 76bpm; Resp 18bpm; Temp 96.3F; dc1 aa5 16:09 15:38 Patient left the ED. aa5 aa5 16:10 15:30 Reassessment: [facility] reports inability to locate patient at this time. . aa5 aa5
--- NOTE | 2018-05-27 15:39 | EDPHYS ---
Physician Documentation [facility] Name: Filiberto Barron Age: 22 yrs Sex: Male : 1995 Arrival Date: 05/27/2018 Time: 02:26 Bed 20 Private MD: ED Physician Lc Wolff HPI: 05/27 04:06 This 22 yrs old Male presents to ER via EMS with complaints of Suicidal gs Ideation. 04:06 The patient presents to the emergency department with depression, a history of a gs suicide gesture. Onset: The symptoms/episode began/occurred acutely, just prior to arrival. Past psychiatric history: Prior diagnosis: depression. Associated signs and symptoms: Pertinent positives; substance abuse, Pertinent negatives: chest pain, hallucinations, shortness of breath. Severity of symptoms: At their worst the symptoms were moderate in the emergency department the symptoms are unchanged. The patient has experienced similar episodes in the past, several times. Historical: - Allergies: 02:42 No Known Allergies; ao - Home Meds: 02:42 Zoloft Oral [Active]; ao - PMHx: 02:42 Depression; suicidal ideation; ao - PSHx: 02:42 None; ao - Immunization history:: Adult Immunizations up to date. - Social history:: Smoking status: Patient/guardian denies using tobacco, Patient uses alcohol, occasionally. street drugs, marijuana. - Ebola Screening: : Patient negative for fever greater than or equal to 101.5 degrees Fahrenheit, and additional compatible Ebola Virus Disease symptoms Patient denies exposure to infectious person Patient denies travel to an Ebola-affected area in the 21 days before illness onset. ROS: 04:06 All other systems are negative. gs Exam: 04:06 Head/Face: Normocephalic, atraumatic. Eyes: Pupils equal round and reactive to light, gs extra-ocular motions intact. Lids and lashes normal. Conjunctiva and sclera are non-icteric and not injected. Cornea within normal limits. Periorbital areas with no swelling, redness, or edema. ENT: Nares patent. No nasal discharge, no septal abnormalities noted. Tympanic membranes are normal and external auditory canals are clear. Oropharynx with no redness, swelling, or masses, exudates, or evidence of obstruction, uvula midline. Mucous membranes moist. Neck: Trachea midline, no thyromegaly or masses palpated, and no cervical lymphadenopathy. Supple, full range of motion without nuchal rigidity, or vertebral point tenderness. No Meningismus. Chest/axilla: Normal chest wall appearance and motion. Nontender with no deformity. No lesions are appreciated. Cardiovascular: Regular rate and rhythm with a normal S1 and S2. No gallops, murmurs, or rubs. Normal PMI, no JVD. No pulse deficits. Respiratory: Lungs have equal breath sounds bilaterally, clear to auscultation and percussion. No rales, rhonchi or wheezes noted. No increased work of breathing, no retractions or nasal flaring. Abdomen/GI: Soft, non-tender, with normal bowel sounds. No distension or tympany. No guarding or rebound. No evidence of tenderness throughout. Back: No spinal tenderness. No costovertebral tenderness. Full range of motion. MS/ Extremity: Pulses equal, no cyanosis. Neurovascular intact. Full, normal range of motion. Neuro: Awake and alert, GCS 15, oriented to person, place, time, and situation. Cranial nerves II-XII grossly intact. Motor strength 5/5 in all extremities. Sensory grossly intact. Cerebellar exam normal. Normal gait. 04:06 Constitutional: The patient appears alert, awake. 04:06 Skin: injury, laceration(s), that can be described as no foreign body, linear, with mild bleeding, superficial. 04:06 Psych: Behavior/mood is cooperative, Affect is calm, Oriented to person, place, time, Patient having thoughts of suicide. Judgement / Insight is impaired. Delusions/hallucinations are not present. 06:37 ECG was reviewed by the Attending Physician. Vital Signs: 02:33 BP 117 / 73; Pulse 104; Resp 18; Temp 98.0(O); Pulse Ox 98% on R/A; Weight 61.23 kg ao (R); Height 5 ft. 6 in. (167.64 cm) (R); Pain 3/10; 04:07 BP 126 / 77; Pulse 93; Resp 16; Pulse Ox 100% on R/A; mw2 06:42 BP 104 / 48; Pulse 98; Resp 16; Pulse Ox 99% on R/A; mw2 07:23 BP 128 / 80; Pulse 96; Resp 18; Temp 97.7(O); Pulse Ox 100% on R/A; em 11:35 BP 124 / 93; Pulse 76; Resp 18; Temp 97.3; aa5 02:33 Body Mass Index 21.79 (61.23 kg, 167.64 cm) ao MDM: 02:33 Patient medically screened. 04:06 Differential diagnosis: drug withdrawal. acute psychotic break, depression. Data gs reviewed: vital signs, nurses notes. Response to treatment: the patient's symptoms have markedly improved after treatment. 05/27 02:33 Order name: Acetaminophen; Complete Time: 03:47 05/27 02:33 Order name: Basic Metabolic Panel; Complete Time: 03:47 05/27 02:33 Order name: CBC with Diff; Complete Time: 03:47 05/27 02:33 Order name: ETOH Level; Complete Time: 03:47 05/27 02:33 Order name: Hepatic Function; Complete Time: 03:47 05/27 02:33 Order name: PT-INR; Complete Time: 03:47 05/27 02:33 Order name: Salicylate; Complete Time: 03:47 05/27 02:33 Order name: Urine Drug Screen; Complete Time: 03:47 05/27 02:33 Order name: EKG; Complete Time: 02:34 05/27 02:33 Order name: EKG - Nurse/Tech; Complete Time: 03:07 05/27 03:03 Order name: Urine Dipstick--Ancillary (enter results); Complete Time: 03:47 ri 05/27 07:41 Order name: Diet Finger Food; Complete Time: 07:41 [facility] 05/27 09:35 Order name: ETOH Level 05/27 11:07 Order name: Diet Finger Food; Complete Time: 11:08 [facility] 05/27 02:33 Order name: IV Saline Lock; Complete Time: 03:08 05/27 02:33 Order name: Labs collected and sent; Complete Time: 03:08 05/27 02:33 Order name: Urine Dipstick-Ancillary (obtain specimen); Complete Time: 03:08 EC:37 Rate is 94 beats/min. Rhythm is regular. SD interval is normal. QRS interval is normal. gs T waves are Normal. No ST changes noted. Clinical impression: Normal ECG. Interpreted by me. Administered Medications: No medications were administered Disposition: 05/27/18 15:38 Patient left the facility after being seen by provider. - Patient left due to (see nurse's notes). Signatures: Dispatcher [employer] Barbara Danielle RN RN aa5 Say Menon RN RN ao Lc Wolff MD MD gs
== END 2018-05-27 15:38 | disposition left against medical advice (07) ==
LOC: ER 02:19
DX: R45.851 Suicidal ideations (principal); F32.9 Major depressive disorder, single episode, unspecified
CPT/HCPCS: 36415; 80048; 80076; 80307; 80320; 80329; 81003; 85025; 85610; 93005; 99285

== ENCOUNTER 2018-06-12 05:43 | Emergency (ER) | payer SELFPAY ==
--- OUTSIDE RECORDS SUMMARY | 2018-06-12 05:45 | XMS REPORT | Clinical Summary ---
:1995 Author Organization [facility] Address [address] [place] [id number] Care Team Providers Name Role Phone Asked, [...] Type Specialty Care Team Description 10/21/2017 Documentation Youth Care Worker Shereen Ken LPC 10/19/2017 - Hospital Encounter Psychiatry Alexei Felix MD 10/21/2017 Jayesh Alford MD after 06/11/2017 Social History Tobacco Use Types Packs/Day Years Used Date Former Smoker Cigarettes Quit: 10/19/2016 Smokeless Tobacco: Never Used Tobacco Cessation: Counseling Given: No Alcohol Use Drinks/Week oz/Week Comments Yes 5 Cans of beer 3.0 daily Sex Assigned at Date Recorded Not on file Last Filed Vital Signs Vital Sign Reading Time Taken Blood Pressure 134/79 10/21/2017 6:15 AM [employer] Pulse 79 10/21/2017 6:15 AM [employer] Temperature 36.3 C (97.3 F) 10/21/2017 6:15 AM [employer] Respiratory Rate 18 10/21/2017 6:15 AM [employer] Oxygen Saturation 99% 10/21/2017 6:15 AM [employer] Inhaled Oxygen Concentration - - Weight 64.2 kg (141 lb 8 oz) 10/19/2017 12:24 PM [employer] Height 188 cm (6' 2") 10/19/2017 12:24 PM [employer] Body Mass Index 18.17 10/19/2017 12:24 PM [employer] Plan of Treatment Not on file Procedures Procedure Name Priority Date/Time Associated Comments Diagnosis CONSULT TO OSTOMY CARE Routine 10/20/2017 12:56 NURSE PM [employer] HC COMPLETE BLD COUNT Routine 10/20/2017 5:00 Results for this W/AUTO DIFF AM [employer] procedure are in the results section. HEMOGLOBIN A1C Routine 10/20/2017 5:00 Results for this AM [employer] procedure are in the results section. ZZESTIMATED GFR Routine 10/20/2017 4:00 Results for this AM [employer] procedure are in the results section. ALCOHOL LEVEL, BLOOD Routine 10/20/2017 4:00 Results for this AM [employer] procedure are in the results section. THYROID STIMULATING Routine 10/20/2017 4:00 Results for this HORMONE AM [employer] procedure are in the results section. LIPID PANEL Routine 10/20/2017 4:00 Results for this AM [employer] procedure are in the results section. COMPREHENSIVE Routine 10/20/2017 4:00 Results for this METABOLIC PANEL AM [employer] procedure are in the results section. ECG 12-LEAD STAT 10/19/2017 9:58 Results for this PM [employer] procedure are in the results section. after 06/11/2017 Results CBC with platelet and differential (10/20/2017 5:00 AM) WBC 9.71 4.50 - 11.00 k/uL [facility] DEPARTMENT OF PATHOLOGY AND GENOMIC MEDICINE RBC 4.72 4.40 - 6.00 m/uL [facility] DEPARTMENT OF PATHOLOGY AND GENOMIC MEDICINE HGB 14.0 14.0 - 18.0 g/dL [facility] DEPARTMENT OF PATHOLOGY AND GENOMIC MEDICINE HCT 40.8 (L) 41.0 - 51.0 % [facility] DEPARTMENT OF PATHOLOGY AND GENOMIC MEDICINE MCV 86.4 82.0 - 100.0 fL [facility] DEPARTMENT OF PATHOLOGY AND GENOMIC MEDICINE MCH 29.7 27.0 - 34.0 pg [facility] DEPARTMENT OF PATHOLOGY AND GENOMIC MEDICINE MCHC 34.3 31.0 - 37.0 g/dL [facility] DEPARTMENT OF PATHOLOGY AND GENOMIC MEDICINE RDW - SD 40.1 37.0 - 55.0 fL [facility] DEPARTMENT OF PATHOLOGY AND GENOMIC MEDICINE MPV 11.9 8.8 - 13.2 fL [facility] DEPARTMENT OF PATHOLOGY AND GENOMIC MEDICINE Platelet count 179 150 - 400 k/uL [facility] DEPARTMENT OF PATHOLOGY AND GENOMIC MEDICINE Nucleated RBC 0.00 /100 WBC [facility] DEPARTMENT OF PATHOLOGY AND GENOMIC MEDICINE Neutrophils 52.6 39.0 - 69.0 % [facility] DEPARTMENT OF PATHOLOGY AND GENOMIC MEDICINE Lymphocytes 36.6 25.0 - 45.0 % [facility] DEPARTMENT OF PATHOLOGY AND GENOMIC MEDICINE Monocytes 9.2 0.0 - 10.0 % [facility] DEPARTMENT OF PATHOLOGY AND GENOMIC MEDICINE Eosinophils 1.1 0.0 - 5.0 % [facility] DEPARTMENT OF PATHOLOGY AND GENOMIC MEDICINE Basophils 0.4 0.0 - 1.0 % [facility] DEPARTMENT OF PATHOLOGY AND GENOMIC MEDICINE Immature granulocytes 0.1Comment: 0.0 - 1.0 % [facility] DEPARTMENT OF "Immature PATHOLOGY AND GENOMIC granulocytes" MEDICINE (promyelocytes, myelocytes, metamyelocytes) Specimen Blood Performing Organization Address [facility] Phone Number [facility] DEPARTMENT OF PATHOLOGY AND [address] [place], [place] [id number] [facility] Hemoglobin A1c (10/20/2017 5:00 AM) Hemoglobin A1C 5.4 4.0 - 5.6 % [facility] DEPARTMENT OF Comment: PATHOLOGY AND GENOMIC HbA1c [...] well characterized. Specimen Blood Performing Organization Address City/[facility] Phone Number [facility] DEPARTMENT OF PATHOLOGY AND [address] [place] [phone] [employer] Estimated GFR (10/20/2017 4:00 AM) GFR Non Af Amer 75 mL/min/1.73 m2 [facility] DEPARTMENT OF PATHOLOGY AND GENOMIC MEDICINE GFR Af Amer >90 mL/min/1.73 m2 [facility] DEPARTMENT OF Comment: PATHOLOGY AND GENOMIC Chronic [...] Americans. Specimen Plasma specimen Performing Organization Address City/[facility] Phone Number [facility] DEPARTMENT OF PATHOLOGY AND [address] [place] [phone] [place] [address] Thyroid stimulating hormone (10/20/2017 4:00 AM) TSH 1.79 0.27 - 4.20 uIU/mL [facility] DEPARTMENT OF PATHOLOGY AND GENOMIC MEDICINE Specimen Plasma specimen Performing Organization Address City/[facility] Phone Number [facility] DEPARTMENT OF PATHOLOGY AND [address] [place] [phone] [facility] Alcohol level, blood (10/20/2017 4:00 AM) Alcohol None Detected mg/dL [facility] DEPARTMENT OF PATHOLOGY Comment: AND GENOMIC MEDICINE Normal None Detected Legal Intoxication in [place]80 mg/dL (0.08%) - Whole Blood Toxic [id number] mg/dL (0.2%) Potentially [id number] - 500 mg/dL (0.35 - 0.5%) Alcohol percent None Detected % [facility] DEPARTMENT OF PATHOLOGY AND GENOMIC MEDICINE Specimen Plasma specimen Performing Organization Address [facility] Phone Number [facility] DEPARTMENT OF PATHOLOGY AND [address] [place] [phone] [facility] Lipid panel (10/20/2017 4:00 AM) Cholesterol 126 <200 mg/dL [facility] DEPARTMENT OF PATHOLOGY AND GENOMIC MEDICINE Triglycerides 71 <150 mg/dL [facility] DEPARTMENT OF PATHOLOGY AND GENOMIC MEDICINE HDL cholesterol 66 >40 mg/dL [facility] DEPARTMENT OF PATHOLOGY AND GENOMIC MEDICINE LDL cholesterol 64Comment: Result <100 mg/dL [facility] DEPARTMENT OF obtained by direct LDL PATHOLOGY AND GENOMIC measurement MEDICINE Lipid panel interpretation SeeBelow [facility] DEPARTMENT OF Comment: PATHOLOGY AND GENOMIC Total Cholesterol (mg/dL) MEDICINE <200 Desirable [id number]-[id number] >=240High Triglycerides (mg/dL) <150 Normal [id number]-yunb 200-499High >=500Very high HDL Cholesterol (mg/dL) <40Low (male) <40Low (female) LDL Cholesterol (mg/dL) <100 Optimal 100-129Near or above optimal [phone]-[id number] 160-189High >=190Very high Risk Catergories that modify [...] Phone Number [facility] DEPARTMENT OF PATHOLOGY [facility] [place] [address] [facility] Comprehensive metabolic panel (10/20/2017 4:00 AM) Sodium 141 135 - 148 mEq/L [facility] DEPARTMENT OF PATHOLOGY AND GENOMIC MEDICINE Potassium 3.9 3.5 - 5.0 mEq/L [facility] DEPARTMENT OF PATHOLOGY AND GENOMIC MEDICINE Chloride 101 98 - 112 mEq/L [facility] DEPARTMENT OF PATHOLOGY AND GENOMIC MEDICINE CO2 27 24 - 31 mEq/L [facility] DEPARTMENT OF PATHOLOGY AND GENOMIC MEDICINE Anion gap 13 7 - 15 mEq/L [facility] DEPARTMENT OF Comment: PATHOLOGY AND GENOMIC Starting from December , anion gap calculation MEDICINE no longer incorporates potassium. Please note the change. BUN 10 6 - 20 mg/dL [facility] DEPARTMENT OF PATHOLOGY AND GENOMIC MEDICINE Creatinine 1.2 0.7 - 1.2 mg/dL [facility] DEPARTMENT OF PATHOLOGY AND GENOMIC MEDICINE Glucose 102 (H) 65 - 99 mg/dL [facility] DEPARTMENT OF PATHOLOGY AND GENOMIC MEDICINE Calcium 9.7 8.3 - 10.2 mg/dL [facility] DEPARTMENT OF PATHOLOGY AND GENOMIC MEDICINE Protein 7.0 6.3 - 8.3 g/dL [facility] DEPARTMENT OF Comment: PATHOLOGY AND GENOMIC 4.6-7.0 g/dL MEDICINE 1 week 4.4-7.6 g/dL 7 months-1year5.1-7.3 g/dL 1-2 years5.6-7.5 g/dL >3 years6.0-8.0 g/dL 18-150 6.3-8.3 g/dL Albumin 4.1 3.5 - 5.0 g/dL [facility] DEPARTMENT OF PATHOLOGY AND GENOMIC MEDICINE A/G ratio 1.4 0.7 - 3.8 [facility] DEPARTMENT OF PATHOLOGY AND GENOMIC MEDICINE Alkaline phosphatase 60 40 - 129 U/L [facility] DEPARTMENT OF PATHOLOGY AND GENOMIC MEDICINE AST 20 10 - 50 U/L [facility] DEPARTMENT OF PATHOLOGY AND GENOMIC MEDICINE ALT 22 5 - 50 U/L [facility] DEPARTMENT OF PATHOLOGY AND GENOMIC MEDICINE Total bilirubin 0.9 0.0 - 1.2 mg/dL [facility] DEPARTMENT OF PATHOLOGY AND GENOMIC MEDICINE Specimen Plasma specimen Performing Organization Address City/[facility] Phone Number [facility] DEPARTMENT OF PATHOLOGY AND [address] [place] [phone] [facility] ECG 12 lead (10/19/2017 9:58 PM) Ventricular rate 65 [facility] MUSE Atrial rate 65 [facility] MUSE NC interval 120 [facility] MUSE QRSD interval 78 HM MUSE QT interval 382 [facility] MUSE QTC interval 397 [facility] MUSE QRS axis 1 43 HM MUSE T wave axis 28 [facility] MUSE EKG impression Normal sinus rhythm-Normal ECG-No previous [facility] MUSE ECGs available- Performing Organization Address City/[facility] Phone Number [facility] [address] [place] [address] after 06/11/2017
--- OUTSIDE RECORDS SUMMARY | 2018-06-12 05:46 | XMS REPORT ---
:1995 [facility] Address [address] [place] [address] Care Team Providers Name Role Phone UNKNOWN, [...] race is not provided, and the patient isAfrican-Ugandan, multiply by 1.212. If sex is not provided, and thepatient is female, multiply by 0.742. Results for patients <18 years ofage have not been validated by the MDRD study and should be interpretedwith caution.eGFR Result Interpretation:eGFR > or=60 is in the Normal RangeeGFR < 60 may mean kidney diseaseeGFR < 15 may mean kidney failureRanges recommended by the National Kidney Foundation,http://nkdep.nih.go v RPR, [id number] 12:15:00 Test Item Value Reference Range Comments RPR (test code=RPR) Non-Reactive Non-Reactive Lipid [id number] 11:22:00 Test Item Value Reference Range Comments Cholesterol (test 149 mg/dL 0-200 code=CHOL) Triglycerides (test 125 mg/dL 9-200 code=TRIG) HDL (test code=HDL) 51 mg/dL 40-60 Chol/HDL (test 2.9 Ratio 0.0-5.0 code=CHOLPHDL) LDL, Calculated (test 73 0-130 (NOTE)RISK OF HEART code=LDLC) DISEASEPublished by [place]and[place] Heart AssociationAnalyte Optimal Boderline Increased RiskCHOL <200 200-239 >240TRIG <150 150-199 >200HDL Male: >60 <40HDL Female: >60 <50LDL <100 130-159 >160LDL NEAR OPTIMAL IS 100-129 VLDL (test code=VLDL) 25 mg/dL 5-40 LDL/HDL (test code=LDLPHDL) 1 Thyroid Stimulating Hormone (TSH)2017-07-28 08:55:00 Test Item Value Reference Range Comments TSH (test code=TSH) 2.44 mIU/mL 0.270-4.200
--- NOTE | 2018-06-12 06:15 | ER ---
Nurse's Notes [facility] Name: Filiberto Barron Age: 22 yrs Sex: Male : 1995 Arrival Date: 06/12/2018 Time: 05:45 Bed 5 Private MD: Diagnosis: Encounter for removal of sutures Presentation: 06/12 05:50 Presenting complaint: Patient states: Reports he had sutures placed about a week ago ea and is here for suture removal. Transition of care: patient was not received from another setting of care. Onset of symptoms was June 12, 2018. Risk Assessment: Do you want to hurt yourself or someone else? Patient reports no desire to harm self or others. Initial Sepsis Screen: Does the patient meet any 2 criteria? No. Patient's initial sepsis screen is negative. Does the patient have a suspected source of infection? No. Patient's initial sepsis screen is negative. Care prior to arrival: None. 05:50 Method Of Arrival: Ambulatory ea 05:50 Acuity: FELI 5 ea Triage Assessment: 05:53 General: Appears in no apparent distress. Behavior is calm, cooperative, appropriate ea for age. Pain: Denies pain. Neuro: Level of Consciousness is awake, alert, obeys commands, Oriented to person, place, time, situation. Cardiovascular: Patient's skin is warm and dry. Respiratory: Airway is patent Respiratory effort is even, unlabored, Respiratory pattern is regular, symmetrical. Derm: 16 sutures noted to left forearm. Musculoskeletal: Circulation, motion, and sensation intact. Historical: - Allergies: 05:53 No Known Allergies; ea - Home Meds: 05:53 Zoloft Oral [Active]; ea - PMHx: 05:53 Depression; suicidal ideation; ea - PSHx: 05:53 None; ea - Immunization history:: Adult Immunizations up to date. - Social history:: Smoking status: Patient/guardian denies using tobacco. - Ebola Screening: : No symptoms or risks identified at this time. Screenin:56 Abuse screen: Denies threats or abuse. Nutritional screening: No deficits noted. ea Tuberculosis screening: No symptoms or risk factors identified. Fall Risk None identified. Vital Signs: 05:55 BP 131 / 80; Pulse 71; Resp 18; Temp 97.8; Pulse Ox 100% ; Weight 68.04 kg; Height 6 ea ft. 2 in. (187.96 cm); Pain 0/10; 05:55 Body Mass Index 19.26 (68.04 kg, 187.96 cm) ea ED Course: 05:45 Patient arrived in ED. am2 05:50 Lily Andino, RN is Primary Nurse. ea 05:52 Triage completed. ea 05:56 Patient has correct armband on for positive identification. Bed in low position. Call ea light in reach. Side rails up X 1. 05:56 Arm band placed on right wrist. Patient placed in an exam room, on a stretcher, on ea pulse oximetry. 05:58 Hari Shane MD is Attending Physician. efliberto 06:16 suture removal, to left forearm, pt tolerated well. Patient did not have IV access ea during this emergency room visit. Administered Medications: No medications were administered Outcome: 06:15 Discharge ordered by . feliberto 06:17 Discharged to home ambulatory, with significant other. ea 06:17 Condition: improved 06:17 Discharge instructions given to patient, Instructed on discharge instructions, follow up and referral plans. Demonstrated understanding of instructions, follow-up care. 06:18 Patient left the ED. ea Signatures: Hari Shane MD MD cha Moreno, Amanda am2 Lily Andino, RN RN ea
--- NOTE | 2018-06-12 06:15 | EDPHYS ---
Physician Documentation [facility] Name: Filiberto Barron Age: 22 yrs Sex: Male : 1995 Arrival Date: 06/12/2018 Time: 05:45 Bed 5 Private MD: ED Physician Hari Shane HPI: 06/12 06:12 This 22 yrs old Male presents to ER via Ambulatory with complaints of Suture feliberto Removal. 06:12 This 22 yrs old Male presents to ER via Ambulatory with complaints of Suture feliberto Removal. 06:12 The patient has sutures on the right arm. Previous treatment: The patient was initially feliberto treated 2 weeks. Sutures/chaparrita progress: The patient has no c/o's. The wound is well-healing with no redness, swelling, discharge, or dehiscence reported. Historical: - Allergies: 05:53 No Known Allergies; ea - Home Meds: 05:53 Zoloft Oral [Active]; ea - PMHx: 05:53 Depression; suicidal ideation; ea - PSHx: 05:53 None; ea - Immunization history:: Adult Immunizations up to date. - Social history:: Smoking status: Patient/guardian denies using tobacco. - Ebola Screening: : No symptoms or risks identified at this time. ROS: 06:12 Constitutional: Negative for fever, chills, and weight loss, Eyes: Negative for injury, feliberto pain, redness, and discharge, ENT: Negative for injury, pain, and discharge, Neck: Negative for injury, pain, and swelling, Cardiovascular: Negative for chest pain, palpitations, and edema, Respiratory: Negative for shortness of breath, cough, wheezing, and pleuritic chest pain, Abdomen/GI: Negative for abdominal pain, nausea, vomiting, diarrhea, and constipation, Back: Negative for injury and pain, : Negative for injury, bleeding, discharge, and swelling, Skin: Negative for injury, rash, and discoloration, Neuro: Negative for headache, weakness, numbness, tingling, and seizure, Psych: Negative for depression, anxiety, suicide ideation, homicidal ideation, and hallucinations, Allergy/Immunology: Negative for hives, rash, and allergies, Endocrine: Negative for neck swelling, polydipsia, polyuria, polyphagia, and marked weight changes, Hematologic/Lymphatic: Negative for swollen nodes, abnormal bleeding, and unusual bruising. 06:12 MS/extremity: Positive for sutures well healed. Exam: 06:12 Constitutional: This is a well developed, well nourished patient who is awake, alert, feliberto and in no acute distress. Head/Face: Normocephalic, atraumatic. Eyes: Pupils equal round and reactive to light, extra-ocular motions intact. Lids and lashes normal. Conjunctiva and sclera are non-icteric and not injected. Cornea within normal limits. Periorbital areas with no swelling, redness, or edema. ENT: Nares patent. No nasal discharge, no septal abnormalities noted. Tympanic membranes are normal and external auditory canals are clear. Oropharynx with no redness, swelling, or masses, exudates, or evidence of obstruction, uvula midline. Mucous membranes moist. Neck: Trachea midline, no thyromegaly or masses palpated, and no cervical lymphadenopathy. Supple, full range of motion without nuchal rigidity, or vertebral point tenderness. No Meningismus. Chest/axilla: Normal chest wall appearance and motion. Nontender with no deformity. No lesions are appreciated. Cardiovascular: Regular rate and rhythm with a normal S1 and S2. No gallops, murmurs, or rubs. Normal PMI, no JVD. No pulse deficits. Respiratory: Lungs have equal breath sounds bilaterally, clear to auscultation and percussion. No rales, rhonchi or wheezes noted. No increased work of breathing, no retractions or nasal flaring. Abdomen/GI: Soft, non-tender, with normal bowel sounds. No distension or tympany. No guarding or rebound. No evidence of tenderness throughout. Back: No spinal tenderness. No costovertebral tenderness. Full range of motion. Male : Normal genitalia with no discharge or lesions. Skin: Warm, dry with normal turgor. Normal color with no rashes, no lesions, and no evidence of cellulitis. MS/ Extremity: Pulses equal, no cyanosis. Neurovascular intact. Full, normal range of motion. Neuro: Awake and alert, GCS 15, oriented to person, place, time, and situation. Cranial nerves II-XII grossly intact. Motor strength 5/5 in all extremities. Sensory grossly intact. Cerebellar exam normal. Normal gait. Psych: Awake, alert, with orientation to person, place and time. Behavior, mood, and affect are within normal limits. Vital Signs: 05:55 BP 131 / 80; Pulse 71; Resp 18; Temp 97.8; Pulse Ox 100% ; Weight 68.04 kg; Height 6 ea ft. 2 in. (187.96 cm); Pain 0/10; 05:55 Body Mass Index 19.26 (68.04 kg, 187.96 cm) ea MDM: 05:58 Patient medically screened. feliberto Administered Medications: No medications were administered Disposition: 06/12/18 06:15 Discharged to Home. Impression: Encounter for removal of sutures. - Condition is Stable. - Discharge Instructions: Suture Removal, Care After, Incision Care, Adult. - Medication Reconciliation Form, Thank You Letter, Antibiotic Education, Prescription Opioid Use form. - Follow up: Private Physician; When: 2 - 3 days; Reason: Recheck today's complaints, Re-evaluation by your physician. - Problem is new. - Symptoms have improved. Signatures: Hari Shane MD MD cha Antunez, Elena, RN RN jean Corrections: (The following items were deleted from the chart) 06:18 06:15 06/12/2018 06:15 Discharged to Home. Impression: Encounter for removal of ea sutures. Condition is Stable. Forms are Medication Reconciliation Form, Thank You Letter, Antibiotic Education, Prescription Opioid Use. Follow up: Private Physician; When: 2 - 3 days; Reason: Recheck today's complaints, Re-evaluation by your physician. Problem is new. Symptoms have improved. feliberto
== END 2018-06-12 06:18 | disposition home or self-care (01) ==
LOC: ER 05:43
DX: Z48.02 Encounter for removal of sutures (principal)
CPT/HCPCS: 99283

== ENCOUNTER 2018-07-01 11:09 | Emergency (ER) | payer SELFPAY ==
--- OUTSIDE RECORDS SUMMARY | 2018-07-01 11:12 | XMS REPORT ---
:1995 [facility] Address [address] [place] [address] Care Team Providers Name Role Phone UNKNOWN, [...] race is not provided, and the patient isAfrican-Lebanese, multiply by 1.212. If sex is not provided, and thepatient is female, multiply by 0.742. Results for patients <18 years ofage have not been validated by the MDRD study and should be interpretedwith caution.eGFR Result Interpretation:eGFR > or=60 is in the Normal RangeeGFR < 60 may mean kidney diseaseeGFR < 15 may mean kidney failureRanges recommended by the National Kidney Foundation,http://nkdep.nih.go v RPR, [id number] 12:15:00 Test Item Value Reference Range Comments RPR (test code=RPR) Non-Reactive Non-Reactive Lipid [id number] 11:22:00 Test Item Value Reference Range Comments Cholesterol (test 149 mg/dL 0-200 code=CHOL) Triglycerides (test 125 mg/dL 9-200 code=TRIG) HDL (test code=HDL) 51 mg/dL 40-60 Chol/HDL (test 2.9 Ratio 0.0-5.0 code=CHOLPHDL) LDL, Calculated (test 73 0-130 (NOTE)RISK OF HEART code=LDLC) DISEASEPublished by Lebanese Heart AssociationAnalyte Optimal Boderline Increased RiskCHOL <200 200-239 >240TRIG <150 150-199 >200HDL Male: >60 <40HDL Female: >60 <50LDL <100 130-159 >160LDL NEAR OPTIMAL IS 100-129 VLDL (test code=VLDL) 25 mg/dL 5-40 LDL/HDL (test code=LDLPHDL) 1 Thyroid Stimulating Hormone (TSH)2017-07-28 08:55:00 Test Item Value Reference Range Comments TSH (test code=TSH) 2.44 mIU/mL 0.270-4.200
--- OUTSIDE RECORDS SUMMARY | 2018-07-01 11:12 | XMS REPORT | Clinical Summary ---
:1995 Author Organization [facility] Address [address] [place] [id number] Care Team Providers Name Role Phone Asked, [...] Noted Date Suicidal behavior with attempted self-injury (HCC) 10/19/2017 Encounters Date Type Specialty Care Team Description 10/21/2017 Documentation Hospital Internship Shereen Ken LPC 10/19/2017 - Hospital Encounter Psychiatry Alexei Felix MD 10/21/2017 Jayesh Alford MD after 06/30/2017 Social History Tobacco Use Types Packs/Day Years Used Date Former Smoker Cigarettes Quit: 10/19/2016 Smokeless Tobacco: Never Used Tobacco Cessation: Counseling Given: No Alcohol Use Drinks/Week oz/Week Comments Yes 5 Cans of beer 3.0 daily Sex Assigned at Date Recorded Not on file Last Filed Vital Signs Vital Sign Reading Time Taken Blood Pressure 134/79 10/21/2017 6:15 AM [employer] Pulse 79 10/21/2017 6:15 AM [employer] Temperature 36.3 C (97.3 F) 10/21/2017 6:15 AM [employer] Respiratory Rate 18 10/21/2017 6:15 AM [employer] Oxygen Saturation 99% 10/21/2017 6:15 AM [employer] Inhaled Oxygen Concentration - - Weight 64.2 kg (141 lb 8 oz) 10/19/2017 12:24 PM [employer] Height 188 cm (6' 2") 10/19/2017 12:24 PM [employer] Body Mass Index 18.17 10/19/2017 12:24 PM [employer] Plan of Treatment Not on file Procedures Procedure Name Priority Date/Time Associated Comments Diagnosis CONSULT TO OSTOMY CARE Routine 10/20/2017 12:56 NURSE PM [employer] HC COMPLETE BLD COUNT Routine 10/20/2017 5:00 Results for this W/AUTO DIFF AM [employer] procedure are in the results section. HEMOGLOBIN A1C Routine 10/20/2017 5:00 Results for this AM [employer] procedure are in the results section. ZZESTIMATED GFR Routine 10/20/2017 4:00 Results for this AM [employer] procedure are in the results section. ALCOHOL LEVEL, BLOOD Routine 10/20/2017 4:00 Results for this AM [employer] procedure are in the results section. THYROID STIMULATING Routine 10/20/2017 4:00 Results for this HORMONE AM [employer] procedure are in the results section. LIPID PANEL Routine 10/20/2017 4:00 Results for this AM [employer] procedure are in the results section. COMPREHENSIVE Routine 10/20/2017 4:00 Results for this METABOLIC PANEL AM [employer] procedure are in the results section. ECG 12-LEAD STAT 10/19/2017 9:58 Results for this PM [employer] procedure are in the results section. after 06/30/2017 Results CBC with platelet and differential (10/20/2017 5:00 AM) WBC 9.71 4.50 - 11.00 k/uL [facility] DEPARTMENT OF PATHOLOGY AND GENOMIC MEDICINE RBC 4.72 4.40 - 6.00 m/uL [facility] DEPARTMENT OF PATHOLOGY AND GENOMIC MEDICINE HGB 14.0 14.0 - 18.0 g/dL [facility] DEPARTMENT OF PATHOLOGY AND GENOMIC MEDICINE HCT 40.8 (L) 41.0 - 51.0 % [facility] DEPARTMENT OF PATHOLOGY AND GENOMIC MEDICINE MCV 86.4 82.0 - 100.0 fL [facility] DEPARTMENT OF PATHOLOGY AND GENOMIC MEDICINE MCH 29.7 27.0 - 34.0 pg [facility] DEPARTMENT OF PATHOLOGY AND GENOMIC MEDICINE MCHC 34.3 31.0 - 37.0 g/dL [facility] DEPARTMENT OF PATHOLOGY AND GENOMIC MEDICINE RDW - SD 40.1 37.0 - 55.0 fL [facility] DEPARTMENT OF PATHOLOGY AND GENOMIC MEDICINE MPV 11.9 8.8 - 13.2 fL [facility] DEPARTMENT OF PATHOLOGY AND GENOMIC MEDICINE Platelet count 179 150 - 400 k/uL [facility] DEPARTMENT OF PATHOLOGY AND GENOMIC MEDICINE Nucleated RBC 0.00 /100 WBC [facility] DEPARTMENT OF PATHOLOGY AND GENOMIC MEDICINE Neutrophils 52.6 39.0 - 69.0 % [facility] DEPARTMENT OF PATHOLOGY AND GENOMIC MEDICINE Lymphocytes 36.6 25.0 - 45.0 % [facility] DEPARTMENT OF PATHOLOGY AND GENOMIC MEDICINE Monocytes 9.2 0.0 - 10.0 % [facility] DEPARTMENT OF PATHOLOGY AND GENOMIC MEDICINE Eosinophils 1.1 0.0 - 5.0 % [facility] DEPARTMENT OF PATHOLOGY AND GENOMIC MEDICINE Basophils 0.4 0.0 - 1.0 % [facility] DEPARTMENT OF PATHOLOGY AND GENOMIC MEDICINE Immature granulocytes 0.1Comment: 0.0 - 1.0 % [facility] DEPARTMENT OF "Immature PATHOLOGY AND GENOMIC granulocytes" MEDICINE (promyelocytes, myelocytes, metamyelocytes) Specimen Blood Performing Organization Address City/[facility] Phone Number [facility] DEPARTMENT OF PATHOLOGY AND [address] [place] [phone] [facility] Hemoglobin A1c (10/20/2017 5:00 AM) Hemoglobin A1C 5.4 4.0 - 5.6 % [facility] DEPARTMENT OF Comment: PATHOLOGY AND GENOMIC HbA1c [...] well characterized. Specimen Blood Performing Organization Address City/State/[facility] Phone Number [facility] DEPARTMENT OF PATHOLOGY AND [address] [place] [address] [facility]urel[facility] Estimated GFR (10/20/2017 4:00 AM) GFR Non Af Amer 75 mL/min/1.73 m2 [facility] DEPARTMENT OF PATHOLOGY AND GENOMIC MEDICINE GFR Af Amer >90 mL/min/1.73 m2 [facility] DEPARTMENT OF Comment: PATHOLOGY AND GENOMIC Chronic [...] Americans. Specimen Plasma specimen Performing Organization Address City/[facility] Phone Number [facility] DEPARTMENT OF PATHOLOGY AND [address] [place] [phone] [facility] Thyroid stimulating hormone (10/20/2017 4:00 AM) TSH 1.79 0.27 - 4.20 uIU/mL [facility] DEPARTMENT OF PATHOLOGY AND GENOMIC MEDICINE Specimen Plasma specimen Performing Organization Address City/[facility] Phone Number [facility] DEPARTMENT OF PATHOLOGY AND [address] [place] [phone] [facility] Alcohol level, blood (10/20/2017 4:00 AM) Alcohol None Detected mg/dL [facility] DEPARTMENT OF PATHOLOGY Comment: AND GENOMIC MEDICINE Normal None Detected Legal Intoxication in [place]80 mg/dL (0.08%) - Whole Blood Toxic [id number] mg/dL (0.2%) Potentially [id number] - 500 mg/dL (0.35 - 0.5%) Alcohol percent None Detected % [facility] DEPARTMENT OF PATHOLOGY AND GENOMIC MEDICINE Specimen Plasma specimen Performing Organization Address [facility] Phone Number [facility] DEPARTMENT OF PATHOLOGY AND [address] [place] [phone] [facility] Lipid panel (10/20/2017 4:00 AM) Cholesterol 126 <200 mg/dL [facility] DEPARTMENT OF PATHOLOGY AND GENOMIC MEDICINE Triglycerides 71 <150 mg/dL [facility] DEPARTMENT OF PATHOLOGY AND GENOMIC MEDICINE HDL cholesterol 66 >40 mg/dL [facility] DEPARTMENT OF PATHOLOGY AND GENOMIC MEDICINE LDL cholesterol 64Comment: Result <100 mg/dL [facility] DEPARTMENT OF obtained by direct LDL PATHOLOGY AND GENOMIC measurement MEDICINE Lipid panel interpretation SeeBelow [facility] DEPARTMENT OF Comment: PATHOLOGY AND GENOMIC Total Cholesterol (mg/dL) MEDICINE <200 Desirable 452-484Tmerdwstoh-pgmi >=240High Triglycerides (mg/dL) <150 Normal 856-439Bdtezlzyby-dkqa 200-499High >=500Very high HDL Cholesterol (mg/dL) <40Low (male) <40Low (female) LDL Cholesterol (mg/dL) <100 Optimal 100-129Near or above optimal [phone]-chjm 160-189High >=190Very high Risk Catergories that modify [...] specimen Performing Organization Address City/State/Zipcode Phone Number [facility] DEPARTMENT OF PATHOLOGY AND [address] [place] [address] Neurelis [facility] Comprehensive metabolic panel (10/20/2017 4:00 AM) Sodium 141 135 - 148 mEq/L [facility] DEPARTMENT OF PATHOLOGY AND GENOMIC MEDICINE Potassium 3.9 3.5 - 5.0 mEq/L [facility] DEPARTMENT OF PATHOLOGY AND GENOMIC MEDICINE Chloride 101 98 - 112 mEq/L [facility] DEPARTMENT OF PATHOLOGY AND GENOMIC MEDICINE CO2 27 24 - 31 mEq/L [facility] DEPARTMENT OF PATHOLOGY AND GENOMIC MEDICINE Anion gap 13 7 - 15 mEq/L [facility] DEPARTMENT OF Comment: PATHOLOGY AND GENOMIC Starting from December , anion gap calculation MEDICINE no longer incorporates potassium. Please note the change. BUN 10 6 - 20 mg/dL [facility] DEPARTMENT OF PATHOLOGY AND GENOMIC MEDICINE Creatinine 1.2 0.7 - 1.2 mg/dL [facility] DEPARTMENT OF PATHOLOGY AND GENOMIC MEDICINE Glucose 102 (H) 65 - 99 mg/dL [facility] DEPARTMENT OF PATHOLOGY AND GENOMIC MEDICINE Calcium 9.7 8.3 - 10.2 mg/dL [facility] DEPARTMENT OF PATHOLOGY AND GENOMIC MEDICINE Protein 7.0 6.3 - 8.3 g/dL [facility] DEPARTMENT OF Comment: PATHOLOGY AND GENOMIC 4.6-7.0 g/dL MEDICINE 1 week 4.4-7.6 g/dL 7 months-1year5.1-7.3 g/dL 1-2 years5.6-7.5 g/dL >3 years6.0-8.0 g/dL 18-150 6.3-8.3 g/dL Albumin 4.1 3.5 - 5.0 g/dL [facility] DEPARTMENT OF PATHOLOGY AND GENOMIC MEDICINE A/G ratio 1.4 0.7 - 3.8 [facility] DEPARTMENT OF PATHOLOGY AND GENOMIC MEDICINE Alkaline phosphatase 60 40 - 129 U/L [facility] DEPARTMENT OF PATHOLOGY AND GENOMIC MEDICINE AST 20 10 - 50 U/L [facility] DEPARTMENT OF PATHOLOGY AND GENOMIC MEDICINE ALT 22 5 - 50 U/L [facility] DEPARTMENT OF PATHOLOGY AND GENOMIC MEDICINE Total bilirubin 0.9 0.0 - 1.2 mg/dL [facility] DEPARTMENT OF PATHOLOGY AND GENOMIC MEDICINE Specimen Plasma specimen Performing Organization Address City/[facility] Phone Number [facility] DEPARTMENT OF PATHOLOGY AND [address] [place] [phone] [facility] ECG 12 lead (10/19/2017 9:58 PM) Ventricular rate 65 [facility] M[facility] Atrial rate 65 [facility] M[facility] CT interval 120 [facility] QRSD interval 78 [facility] MUSE QT interval 382 [facility] QTC interval 397 [facility] QRS axis 1 43 [facility] T wave axis 28 [facility] EKG impression Normal sinus rhythm-Normal ECG-No previous [facility] ECGs available- Performing Organization Address City/[facility] Phone Number [facility] [address] [place] [address] after 06/30/2017
--- NOTE | 2018-07-01 12:14 | ER ---
Nurse's Notes [facility] Name: Filiberto Barron Age: 22 yrs Sex: Male : 1995 Arrival Date: 07/01/2018 Time: 11:11 Bed 18 Private MD: Diagnosis: Laceration without foreign body, right lower leg;Laceration without foreign body, left lower leg Presentation: 07/01 11:21 Presenting complaint: Patient states: "I cut myself, and I think that its actually time aj1 to take action against my anxiety and my self-issues." Reports lacerations to right leg. Patient states that he isn't trying to kill himself, but "whatever happens, happens." Reports anxiety and depression. Transition of care: patient was not received from another setting of care. Complicating Factors: There are no complicating factors for this patient. Onset of symptoms was July 01, 2018 at 10:30. Risk Assessment: Do you want to hurt yourself or someone else? Patient reports desire/thoughts of hurting themselves or someone else. Provider notified. Initial Sepsis Screen: Does the patient meet any 2 criteria? No. Patient's initial sepsis screen is negative. Does the patient have a suspected source of infection? No. Patient's initial sepsis screen is negative. Care prior to arrival: None. 11:21 Method Of Arrival: Ambulatory aj1 11:21 Acuity: FELI 3 aj1 Triage Assessment: 11:26 General: Appears in no apparent distress. comfortable, Behavior is calm, cooperative, aj1 appropriate for age. Pain: Denies pain. Neuro: Level of Consciousness is awake, alert, obeys commands. Cardiovascular: Patient's skin is warm and dry. Respiratory: Airway is patent Respiratory effort is even, unlabored, Respiratory pattern is regular, symmetrical. Historical: - Allergies: 11:26 No Known Allergies; aj1 - Home Meds: 11:26 Lorazepam Oral [Active]; aj1 - PMHx: 11:26 Depression; suicidal ideation; Anxiety; aj1 - PSHx: 11:26 None; aj1 - Immunization history:: Flu vaccine is not up to date. - Social history:: Smoking status: Patient uses tobacco products, denies chronic smoking, but will smoke occasionally, Patient uses alcohol, occasionally. street drugs, marijuana. - Ebola Screening: : Patient denies travel to an Ebola-affected area in the 21 days before illness onset. Screenin:05 Abuse screen: Denies threats or abuse. Nutritional screening: No deficits noted. em Tuberculosis screening: No symptoms or risk factors identified. Fall Risk None identified. Assessment: 12:05 General: Appears in no apparent distress. uncomfortable, Behavior is cooperative, em anxious, Reports pt currently denies SI/HI just feels anxious at the moment, reports having a history of cutting himself and coming to the ED for help, pt apologized for eloping last time pt was here for the similar incident, pt has been seeking help at [facility]. Pain: Denies pain. Neuro: Level of Consciousness is awake, alert, obeys commands, Oriented to person, place, time, situation. Cardiovascular: Capillary refill < 3 seconds Patient's skin is warm and dry. Respiratory: Airway is patent Respiratory effort is even, unlabored, Respiratory pattern is regular, symmetrical. GI: Abdomen is flat. Derm: Wound noted Other: multiple superficial lacerations noted to vandana. legs. pt states the right leg he did cut himself was from 3 days ago. pt states the left leg was from today. Musculoskeletal: Capillary refill < 3 seconds, Range of motion: intact in all extremities. Injury Description: Laceration sustained to left leg and right leg is contaminated, 2.6 to 7.5 cm long, bleeding moderately, was sustained 3 days on the right leg, this morning of the left leg. 12:15 General: The previous assessment is accurate, call light remains within reach. . ss Vital Signs: 11:26 BP 115 / 74; Pulse 117; Resp 22; Temp 97.8; Pulse Ox 98% on R/A; Weight 63.5 kg (R); aj1 Height 6 ft. 2 in. (187.96 cm) (R); Pain 0/10; 12:30 BP 121 / 75; Pulse 92; Resp 16; Pulse Ox 99% on R/A; em 11:26 Body Mass Index 17.97 (63.50 kg, 187.96 cm) aj1 ED Course: 11:11 Patient arrived in ED. tw3 11:25 Triage completed. aj1 11:26 Arm band placed on Patient placed in an exam room. aj1 11:50 Cem Carter PA is PHCP. jr8 11:50 Bryce Rowley MD is Attending Physician. jr8 12:01 Baljit Camarillo LVN is Primary Nurse. em 12:05 Patient has correct armband on for positive identification. Bed in low position. Call em light in reach. 12:05 No provider procedures requiring assistance completed. Patient did not have IV access em during this emergency room visit. 12:12 Fazal Tello MD is Referral Physician. jr8 12:21 Dressings: Kerlix X 2; right leg and left leg. Wound care: cleaned wounds to right and dh3 left legs with chlorhexidine and normal saline. Administered Medications: No medications were administered Outcome: 12:14 Discharge ordered by . jr8 12:43 Discharged to home ambulatory. em 12:43 Condition: good 12:43 Discharge instructions given to patient, Instructed on discharge instructions, follow up and referral plans. medication usage, Demonstrated understanding of instructions, follow-up care, medications, Prescriptions given X 1. 12:43 Patient left the ED. em Signatures: Yadira Partida RN RN aj1 Baljit Camarillo LVN LVN em Katia Llanos RN RN ss Roszak, Josh, PA PA jr8 Ector, Lyndsey 3 Brenda [facility]
--- NOTE | 2018-07-01 12:15 | EDPHYS ---
Physician Documentation [facility] Name: Filiberto Barron Age: 22 yrs Sex: Male : 1995 Arrival Date: 07/01/2018 Time: 11:11 Bed 18 Private MD: ED Physician Bryce Rowley HPI: 07/01 12:07 This 22 yrs old Male presents to ER via Ambulatory with complaints of jr8 Laceration To Leg. 12:07 Onset: The symptoms/episode began/occurred acutely, 3 day(s) ago. Associated signs and jr8 symptoms: The patient has no apparent associated signs or symptoms. The patient has experienced similar episodes in the past, several times. The patient has not recently seen a physician. Stated that he had a bad day and cut his legs 3 days ago. Came today for wound care. Denies SI/HI. Stated that he just gets very depressed and ends up cutting himself for relief but does not want to kill himself . Historical: - Allergies: 11:26 No Known Allergies; aj1 - Home Meds: 11:26 Lorazepam Oral [Active]; aj1 - PMHx: 11:26 Depression; suicidal ideation; Anxiety; aj1 - PSHx: 11:26 None; aj1 - Immunization history:: Flu vaccine is not up to date. - Social history:: Smoking status: Patient uses tobacco products, denies chronic smoking, but will smoke occasionally, Patient uses alcohol, occasionally. street drugs, marijuana. - Ebola Screening: : Patient denies travel to an Ebola-affected area in the 21 days before illness onset. ROS: 12:07 Eyes: Negative for injury, pain, redness, and discharge, ENT: Negative for injury, jr8 pain, and discharge, Neck: Negative for injury, pain, and swelling, Cardiovascular: Negative for chest pain, palpitations, and edema, Respiratory: Negative for shortness of breath, cough, wheezing, and pleuritic chest pain, Abdomen/GI: Negative for abdominal pain, nausea, vomiting, diarrhea, and constipation, Back: Negative for injury and pain, MS/Extremity: Negative for injury and deformity, Neuro: Negative for headache, weakness, numbness, tingling, and seizure. 12:07 Skin: Positive for laceration(s), of the right leg and left leg. 12:07 Psych: Positive for depression, Negative for homicidal ideation, suicide gesture, suicidal ideation. Exam: 12:07 Head/Face: Normocephalic, atraumatic. Eyes: Pupils equal round and reactive to light, jr8 extra-ocular motions intact. Lids and lashes normal. Conjunctiva and sclera are non-icteric and not injected. Cornea within normal limits. Periorbital areas with no swelling, redness, or edema. ENT: Nares patent. No nasal discharge, no septal abnormalities noted. Tympanic membranes are normal and external auditory canals are clear. Oropharynx with no redness, swelling, or masses, exudates, or evidence of obstruction, uvula midline. Mucous membranes moist. Neck: Trachea midline, no thyromegaly or masses palpated, and no cervical lymphadenopathy. Supple, full range of motion without nuchal rigidity, or vertebral point tenderness. No Meningismus. Chest/axilla: Normal chest wall appearance and motion. Nontender with no deformity. No lesions are appreciated. Cardiovascular: Regular rate and rhythm with a normal S1 and S2. No gallops, murmurs, or rubs. Normal PMI, no JVD. No pulse deficits. Respiratory: Lungs have equal breath sounds bilaterally, clear to auscultation and percussion. No rales, rhonchi or wheezes noted. No increased work of breathing, no retractions or nasal flaring. Abdomen/GI: Soft, non-tender, with normal bowel sounds. No distension or tympany. No guarding or rebound. No evidence of tenderness throughout. Back: No spinal tenderness. No costovertebral tenderness. Full range of motion. MS/ Extremity: Pulses equal, no cyanosis. Neurovascular intact. Full, normal range of motion. Neuro: Awake and alert, GCS 15, oriented to person, place, time, and situation. Cranial nerves II-XII grossly intact. Motor strength 5/5 in all extremities. Sensory grossly intact. Cerebellar exam normal. Normal gait. Psych: Awake, alert, with orientation to person, place and time. Behavior, mood, and affect are within normal limits. 12:07 Skin: multiple healing and fresh superficial lacerations to both right and left anterior tibial regions. The right lower leg has one approximately 4 cm deeper laceration that is in the healing process . Vital Signs: 11:26 BP 115 / 74; Pulse 117; Resp 22; Temp 97.8; Pulse Ox 98% on R/A; Weight 63.5 kg (R); aj1 Height 6 ft. 2 in. (187.96 cm) (R); Pain 0/10; 12:30 BP 121 / 75; Pulse 92; Resp 16; Pulse Ox 99% on R/A; em 11:26 Body Mass Index 17.97 (63.50 kg, 187.96 cm) aj1 MDM: 11:50 Patient medically screened. jr8 12:07 Data reviewed: vital signs, nurses notes, and as a result, I will discharge patient. jr8 Data interpreted: Pulse oximetry: on room air is 98 %. Interpretation: normal. Counseling: I had a detailed discussion with the patient and/or guardian regarding: the historical points, exam findings, and any diagnostic results supporting the discharge/admit diagnosis, the need for outpatient follow up, a family practitioner, a general surgeon, a psychiatrist, to return to the emergency department if symptoms worsen or persist or if there are any questions or concerns that arise at home. ED course: discussed with patient that the one deeper laceration will have to be left open and needs to be checked on Tuesday. After which if the surgeon chooses to close it they can but that it has been open and exposed for too long now to do primary closure. Patient understands and will follow up . 07/01 12:01 Order name: Wound Care; Complete Time: 12:22 jr8 07/01 12:01 Order name: Wound dressing; Complete Time: 12:22 jr8 Administered Medications: No medications were administered Disposition: 15:23 Co-signature as Attending Physician, Bryce Rowley MD I agree with the assessment and kdr plan of care. Disposition: 07/01/18 12:14 Discharged to Home. Impression: Laceration without foreign body, right lower leg, Laceration without foreign body, left lower leg. - Condition is Stable. - Discharge Instructions: Laceration Care, Adult. - Prescriptions for Keflex 500 mg Oral Capsule - take 1 capsule by ORAL route every 6 hours for 10 days; 40 capsule. - Medication Reconciliation Form, Thank You Letter, Antibiotic Education, Prescription Opioid Use form. - Follow up: Fazal Tello MD; When: 5 - 6 days; Reason: Wound Recheck, Recheck today's complaints, Continuance of care, Re-evaluation by your physician. - Problem is new. - Symptoms have improved. Signatures: Dispatcher [employer] EDMS Yadira Partida, COLUMBA RN aj1 Bryce Rowley MD MD kdr Baljit Camarillo, PROGRAM MANAGER SLP PROGRAM MANAGER SLP em Cem Carter PA PA jr8 Corrections: (The following items were deleted from the chart) 12:11 12:00 Labs collected and sent ordered. jr8 em 12:11 12:00 Urine Dipstick-Ancillary ordered. jr8 em 12:12 12:00 IV Saline Lock ordered. jr8 em 12:14 12:01 BASIC METABOLIC PANEL+C.LAB.BRZ ordered. EDMS EDMS 12:14 12:01 CBC+H.LAB.BRZ ordered. EDMS EDMS 12:14 12:01 ETHANOL+C.LAB.BRZ ordered. EDMS EDMS 12:14 12:01 HEPATIC FUNCTION+C.LAB.BRZ ordered. EDMS EDMS 12:14 12:01 URINE DRUG SCREEN+CHEM UR.LAB.BRZ ordered. EDNC EDMS 12:43 12:14 07/01/2018 12:14 Discharged to Home. Impression: Laceration without foreign body, em right lower leg; Laceration without foreign body, left lower leg. Condition is Stable. Forms are Medication Reconciliation Form, Thank You Letter, Antibiotic Education, Prescription Opioid Use. Follow up: Dr. Fazal Tello; When: 5 - 6 days; Reason: Wound Recheck, Recheck today's complaints, Continuance of care, Re-evaluation by your physician. Problem is new. Symptoms have improved. jr8
[2018-07-01] MEDS ORDERED: CEPHALEXIN 250 MG CAP ONE (12:43)
== END 2018-07-01 12:43 | disposition home or self-care (01) ==
LOC: ER 11:09
DX: S81.811A Laceration without foreign body, right lower leg, initial encounter (principal); X78.9XXA Intentional self-harm by unspecified sharp object, initial encounter; Y93.9 Activity, unspecified; Y92.9 Unspecified place or not applicable; Z72.0 Tobacco use; F32.9 Major depressive disorder, single episode, unspecified
CPT/HCPCS: 99283

== ENCOUNTER 2018-12-15 15:15 | Emergency (ER) | payer SELFPAY ==
--- OUTSIDE RECORDS SUMMARY | 2018-12-15 15:17 | XMS REPORT ---
:1995 Author Organization [facility] Address [address] [place] [address] Care Team Providers Name Role Phone UNKNOWN, REFFERING Primary Care Provider Unavailable FLORECITA STAFFORD M.D. Unavailable Unavailable Problems This patient has no known problems. Allergies, Adverse Reactions, Alerts This patient has no known allergies or adverse reactions. Medications This patient has no known medications. Encounters Start End Encounter Admission Attending Care Care Encounter Date/Time Date/Time Type Type Clinicians Facility Department ID 2018-07-03 Inpatient [facility] [id number] 12:20:26 2018-08-07 2018-08-07 Outpatient [facility] [id number] 00:00:00 00:00:00 2018-07-20 2018-07-20 Outpatient [facility] [id number] 00:00:00 00:00:00 2018-07-06 2018-07-06 Outpatient [facility] [id number] 13:20:50 13:20:50 2018-07-03 2018-07-03 Outpatient [facility] [id number] 15:53:01 15:53:01 2018-07-02 2018-07-02 Emergency [facility] [id number] 20:10:38 20:10:38 Results Test Description Test Time Test Comments [...] race is not provided, and the patient isAfrican-Croatian, multiply by 1.212. If sex is not provided, and thepatient is female, multiply by 0.742. Results for patients <18 years ofage have not been validated by the MDRD study and should be interpretedwith caution.eGFR Result Interpretation:eGFR > or=60 is in the Normal RangeeGFR < 60 may mean kidney diseaseeGFR < 15 may mean kidney failureRanges recommended by the National Kidney Foundation,http://nkdep.nih.go v RPR, [id number] 12:15:00 Test Item Value Reference Range Comments RPR (test code=RPR) Non-Reactive Non-Reactive Lipid [id number] 11:22:00 Test Item Value Reference Range Comments Cholesterol (test 149 mg/dL 0-200 code=CHOL) Triglycerides (test 125 mg/dL 9-200 code=TRIG) HDL (test code=HDL) 51 mg/dL 40-60 Chol/HDL (test 2.9 Ratio 0.0-5.0 code=CHOLPHDL) LDL, Calculated (test 73 0-130 (NOTE)RISK OF HEART code=LDLC) DISEASEPublished by Croatian Heart AssociationAnalyte Optimal Boderline Increased RiskCHOL <200 200-239 >240TRIG <150 150-199 >200HDL Male: >60 <40HDL Female: >60 <50LDL <100 130-159 >160LDL NEAR OPTIMAL IS 100-129 VLDL (test code=VLDL) 25 mg/dL 5-40 LDL/HDL (test code=LDLPHDL) 1 Thyroid Stimulating Hormone (TSH)2017-07-28 08:55:00 Test Item Value Reference Range Comments TSH (test code=TSH) 2.44 mIU/mL 0.270-4.200
--- OUTSIDE RECORDS SUMMARY | 2018-12-15 15:17 | XMS REPORT | Clinical Summary ---
:1995 Author Organization [facility] Address [facility] [place] [address] Care Team Providers Name Role Phone Unavailable Primary Care Provider Unavailable Allergies No Known Allergies Medications Medication Sig Dispensed Refills Start Date End Date Status citalopram (CELEXA) 10 Take 1 tablet by 14 tablet 0 07/07/2018 Active mg tabletIndications: mouth daily. Severe episode of recurrent major depressive disorder, without psychotic features nicotine polacrilex Place 1 Each 30 Each 0 07/06/2018 Active (NICORETTE) 2 mg inside cheek every GumIndications: 2 hours as needed Tobacco dependence for Other (cravings). Active Problems Problem Noted Date Tobacco dependence 07/06/2018 PTSD (post-traumatic stress disorder) 07/03/2018 Marijuana use, continuous 07/03/2018 Severe benzodiazepine use disorder 07/03/2018 Alcohol abuse 07/03/2018 Severe episode of recurrent major depressive disorder, without psychotic features Encounters Date Type Specialty Care Team Description 07/06/2018 Hospital Encounter Chela Conway 07/03/2018 - Hospital Encounter Psychiatry Kaden Navarrete Tobacco dependence (Primary Dx); 07/06/2018 MD Rocky Severe episode of recurrent major depressive disorder, without psychotic features 07/03/2018 Hospital Encounter Chela Conway 07/02/2018 - Emergency Emergency Medicine Kenzie Dasilvau, Severe episode of 07/03/2018 recurrent major depressive disorder, without psychotic features (Primary Dx) after 12/14/2017 Social History Tobacco Use Types Packs/Day Years Used Date Never Smoker Smokeless Tobacco: Never Used Alcohol Use Drinks/Week oz/Week Comments Yes 5 Cans of beer 3.0 Sex Assigned at Date Recorded Not on file Job Start Date Occupation Industry Not on file Not on file Not on file Travel History Travel Start Travel End No recent travel history available. Last Filed Vital Signs Vital Sign Reading Time Taken Blood Pressure 111/72 07/06/2018 6:07 AM CDT Pulse 71 07/06/2018 6:07 AM CDT Temperature 36.6 C (97.9 F) 07/06/2018 6:07 AM CDT Respiratory Rate 16 07/06/2018 6:07 AM CDT Oxygen Saturation 100% 07/03/2018 7:13 AM CDT Inhaled Oxygen Concentration - - Weight 60.3 kg (133 lb) 07/03/2018 12:55 PM CDT Height 188 cm (6' 2") 07/03/2018 12:55 PM CDT Body Mass Index 17.08 07/03/2018 12:55 PM CDT Plan of Treatment Health Maintenance Due Date Last Done Comments IMM Influenza Seasonal Jun to November (>/=19 yrs) 06/12/2019 Procedures Procedure Name Priority Date/Time Associated Comments Diagnosis IP CONSULT WITH Routine 07/04/2018 10:53 INSIGHT AM CDT 12 LEAD EKG Routine 07/03/2018 12:19 Results for this PM CDT procedure are in the results section. CONSULT CLINICAL CASE STAT 07/03/2018 1:32 MANAGEMENT (RN/SW) AM CDT BASIC METABOLIC PANEL STAT 07/03/2018 12:52 Results for this AM CDT procedure are in the results section. CBC/DIFF STAT 07/03/2018 12:52 Results for this AM CDT procedure are in the results section. URINE DRUG SCREEN STAT 07/02/2018 8:15 Results for this PM CDT procedure are in the results section. UA CHEMISTRIES STAT 07/02/2018 8:15 Results for this PM CDT procedure are in the results section. 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: MARCUS:1995 Requested By: Order Number:Reading : Anjelica Gann Measurements IntervalsAxis Rate: 66 P: -60 NC: 131QRS: 68 QRSD: 78 T: 38 QT: 386 QTc:407 Interpretive Statements ECTOPIC ATRIAL RHYTHM ABNORMAL RHYTHM ECG Electronically Signed On 07-03-18 14:30:15 CDT by Anjelica Gann Performing Organization Address City/State/Zipcode Phone Number SMS CBC/DIFF (07/03/2018 12:52 AM CDT) WBC 7.3 4.5 - 12.0 K/uL [facility] RBC 4.66 4.60 - 6.20 M/uL [facility] Hemoglobin 13.4 (L) 14.0 - 18.0 g/dL [facility] Hematocrit 41.6 40.0 - 54.0 % [facility] MCV 89 82 - 92 fL [facility] MCH 28.8 27.0 - 31.0 pg [facility] MCHC 32.2 32.0 - 36.0 g/dL [facility] RDW 42.4 35.1 - 43.9 fL [facility] Platelet 164 150 - 400 K/uL [facility] 2 Mean Platelet Volume 12.9 (H) 9.4 - 12.4 fL [facility] 2 Percent NRBC 0.0 [facility] 2 Absolute NRBC 0.00 [facility] 2 Neutrophil 54.9 34.0 - 67.9 % [facility] Lymphocyte 32.7 21.8 - 50.0 % [facility] 2 Monocyte 11.0 5.3 - 12.0 % [facility] 2 Eosinophil 0.7 (L) 0.8 - 5.0 % [facility] 2 Basophil 0.4 0.2 - 1.2 % [facility] 2 Pct Immat Gran 0.3 0.0 - 0.5 [facility] 2 Neutrophil, Abs 4.01 1.78 - 5.36 K/uL [facility] 2 Lymphocyte, Abs 2.39 1.32 - 3.57 K/uL [facility] 2 Monocyte, Abs 0.80 0.30 - 0.82 K/uL [facility] 2 Eosinophil, Abs 0.05 0.04 - 0.54 K/uL [facility] 2 Basophil, Abs 0.03 0.01 - 0.08 K/uL [facility] 2 Absol Immat Gran 0.02 0.00 - 0.03 K/uL [facility] 2 Specimen Blood Performing Organization Address City/State/Zipcode Phone Number [facility] BASIC METABOLIC PANEL (07/03/2018 12:52 AM CDT) CO2 27 21 - 31 mmol/L [facility] Chloride 102 98 - 107 mmol/L [facility] 1 Potassium 4.0 3.5 - 5.1 mmol/L [facility] 1 Sodium 139 136 - 145 mmol/L [facility] 1 Glucose 79 70 - 110 mg/dL [facility] 1 Urea Nitrogen 14 7 - 25 mg/dL [facility] 1 Creatinine 1.10 0.7 - 1.3 mg/dL [facility] 1 Anion Gap 10 [facility] 1 Calcium 9.6 8.6 - 10.3 mg/dL [facility] 1 GFR, Estimated >60 mL/min/1.73 m2 [facility] 1 GFR, Estim, Afr-Am >60 mL/min/1.73 m2 [facility] 1 Specimen Blood Performing Organization Address [facility] Phone Number [facility] 1 UA CHEMISTRIES (07/02/2018 8:15 PM CDT) Color Yellow [facility] 3 Clarity Clear [facility] 3 Spec [place] 1.028 1.001 - 1.035 [facility] 3 pH 5.0 5 - 8 [facility] 3 Protein 2+ (A) NEG [facility] 3 Glucose Negative NEG [facility] 3 Ketone 1+ (A) NEG [facility] 3 Bilirubin Negative NEG [facility] 3 Nitrate Negative NEG [facility] 3 Urobilinogen 1.0 0.2 - 1.0 EU/dL [facility] 3 Leukocyte Negative NEG [facility] 3 Blood Negative NEG [facility] 3 RBC 1 0 - 4 /HPF [facility] 3 WBC 1 0 - 5 /HPF [facility] 3 Epithelial Cell <1 /HPF [facility] 3 Mucous Present [facility] 3 Calc Ox Anne Present [facility] 3 Specimen Urine Performing Organization Address [facility] Phone Number [facility] 3 URINE DRUG SCREEN (07/02/2018 8:15 PM CDT) Amphetamine Positive (A) NEG [facility] 1 Comment: Calibrated Standard: D-Methamphetamine Positive if urine level >lw=4417 ng/mL Test performed on [id number] using EMIT Immunoassay Barbiturate Negative NEG [facility] 1 Comment: Calibrated Standard: Secobarbital Positive if urine level is >df=380 ng/mL Test performed on [id number] using EMIT Immunoassay Benzodiazepine Positive (A) NEG [facility] 1 Comment: Calibrated Standard: Lormethazepam Positive if urine level is >pj=857 ng/mL Test performed on [id number] using EMIT Immunoassay Cannabinoid Positive (A) NEG [facility] 1 Comment: Calibrated Standard: 11 nor-delta(9)-THC carboxylic a Positive if urine level >or=50 Test performed on [id number] using EMIT Immunoassay Cocaine Negative NEG [facility] 1 Comment: Calibrated Standard: Benzoylecgonine Positive if urine level >pb=065 Test performed on [id number] using EMIT Immunoassay Opiate, Ur Negative NEG [facility] 1 Comment: Calibrated Standard: Morphine Positive if urine level >ot=966 Test performed on [id number] using EMIT Immunoassay PCP Negative NEG [facility] 1 Comment: Calibrated Standard: Phencyclidine Positive if urine level >or=25 Test performed on [id number] using EMIT Immunoassay Urine Toxicology Screen results are to be used only for Medical purposes. Specimen Urine Performing Organization Address City/State/Zipcode Phone Number MISYS [facility] 1 after 12/14/2017 Insurance Payer Benefit Plan / Subscriber ID Effective Phone Address Type Group Dates [facility] xxxxxxxxxxxx 2017-Prese [phone] [employer] [id number] [place] [address] [facility] xxxxxxxxxxxx 2017-Prese [phone] HEALTH CHOICE CHOICE nt [phone] [employer] [place] [address] Advance Directives For more information, please contact:[place] [address] Code Status Date Activated Date Inactivated Comments Full Code 07/03/2018 1:11 PM 07/06/2018 5:46 PM
--- OUTSIDE RECORDS SUMMARY | 2018-12-15 15:17 | XMS REPORT | Clinical Summary ---
:1995 Author Organization [facility] Address [address] [place] [address] Care Team Providers Name Role Phone Asked, No Pcp Primary Care Provider Unavailable Allergies No Known Allergies Medications Not on file Active Problems Problem Noted Date Suicidal behavior with attempted self-injury 10/19/2017 Social History Tobacco Use Types Packs/Day Years [...] travel history available. Last Filed Vital Signs Not on file Plan of Treatment Not on file Results Not on fileafter 12/14/2017 Advance Directives Patient has advance care planning documents on file. For more information, please contact:[facility] [place] [address]
[2018-12-15] MEDS ORDERED: LIDOCAINE 1% W/EPI 1:100,000 MDV 50 ML VIAL ONE (15:58)
[2018-12-15] MEDS ORDERED: TETANUS & DIPHTHERIA TOX,ADULT 0.5 ML VIAL ONE (15:58)
[2018-12-15 16:48] LABS: Absolute Lymphocytes (CBC) 1.4 K/uL (0.7-4.9); Absolute Monocytes 0.4 K/uL (0.1-1.3); Absolute Neutrophil 2.1 K/uL (1.8-8.0); Basophils % 0.7 % (0-1.3); Eosinophils % 1.9 % (0-4.4); Hematocrit 44.2 % (39.6-49.0); Lymphocytes % 34.4 % (15.3-44.8); MPV 9.7 fL (7.6-11.3); Monocytes % 10.9 % (3.3-12.3)
[2018-12-15 16:52] LABS: Protime INR 0.86
[2018-12-15] MEDS ORDERED: BACI/NEOMYCIN/POLY OINT 15GM TOP ONE (16:52)
[2018-12-15] MEDS ORDERED: NA CHLORIDE 0.9% 1,000 ML ONE (16:52)
[2018-12-15 17:29] LABS: ALT/SGPT 20 U/L (12-78); AST/SGOT 18 U/L (15-37); Albumin 4.3 g/dL (3.4-5.0); Alkaline Phosphatase 63 U/L (45-117); BUN Blood Urea Nitrogen 7 mg/dL (7-18); Bicarbonate 28 mmol/L (21-32); Bilirubin Direct 0.2 mg/dL (0-0.2); Bilirubin Total 0.4 mg/dL (0.2-1.0); Glucose Level 95 mg/dL (74-106); Potassium 4.1 mmol/L (3.5-5.1); Protein, Total 7.3 g/dL (6.4-8.2); Sodium Level 146 mmol/L (136-145)
--- NOTE | 2018-12-15 17:39 | EDPHYS ---
Physician Documentation [facility] Name: Filiberto Barron Age: 23 yrs Sex: Male : 1995 Arrival Date: 12/15/2018 Time: 15:17 Bed 15 Private MD: ED Physician Bryce Rowley HPI: 12/15 15:34 This 23 yrs old Male presents to ER via Ambulatory with complaints of cp Laceration To Leg. 15:35 The patient has a laceration related to: self inflicted occurred at home, and there are cp no complicating factors. 15:35 The laceration(s) is(are) located on the left lower leg and right lower leg. Onset: The cp symptoms/episode began/occurred today. Historical: - Allergies: 15:26 No Known Allergies; hj - Home Meds: 15:26 Lorazepam Oral [Active]; hj - PMHx: 15:26 Anxiety; Depression; suicidal ideation; hj - PSHx: 15:26 None; hj - Immunization history:: Adult Immunizations up to date. - Social history:: Smoking status: Patient uses tobacco products, Patient uses alcohol. - Ebola Screening: : Patient negative for fever greater than or equal to 101.5 degrees Fahrenheit, and additional compatible Ebola Virus Disease symptoms Patient denies exposure to infectious person Patient denies travel to an Ebola-affected area in the 21 days before illness onset. ROS: 15:40 Constitutional: Negative for body aches, chills, fever, poor PO intake. cp 15:40 Cardiovascular: Negative for chest pain. cp 15:40 Respiratory: Negative for cough, shortness of breath, wheezing. 15:40 Abdomen/GI: Negative for abdominal pain, vomiting, diarrhea, constipation. 15:40 Skin: Positive for laceration(s), of the left lower leg and right lower leg, diffusely. 15:40 Neuro: Negative for altered mental status. 15:40 Psych: Negative for homicidal ideation, suicide gesture, suicidal ideation. 15:40 All other systems are negative. Exam: 15:45 Constitutional: The patient appears in no acute distress, alert, awake, non-toxic, well cp developed, well nourished, smells of alcohol. 15:45 Head/Face: Normocephalic, atraumatic. cp 15:45 Eyes: Periorbital structures: appear normal, Pupils: equal, round, and reactive to cp light and accomodation, Conjunctiva: normal, no exudate, no injection, Sclera: no appreciated abnormality, Lids and lashes: appear normal, bilaterally. 15:45 ENT: External ear(s): are unremarkable, Ear canal(s): are normal, clear, TM's: are normal, no evidence of bulging, no erythema, Nose: is normal, Mouth: is normal, Posterior pharynx: is normal, airway is patent, no erythema, no exudate. 15:45 Chest/axilla: Inspection: normal, Palpation: is normal, no crepitus, no tenderness. 15:45 Cardiovascular: Rate: tachycardic, Rhythm: regular, Heart sounds: murmur, not appreciated, Edema: is not appreciated. 15:45 Respiratory: the patient does not display signs of respiratory distress, Respirations: normal, no use of accessory muscles, no retractions, no splinting, labored breathing, is not present, Breath sounds: are clear throughout, no decreased breath sounds, no stridor, no wheezing. 15:45 Abdomen/GI: Inspection: abdomen appears normal, Palpation: abdomen is soft and non-tender, in all quadrants. 15:45 Back: pain, is absent, ROM is normal. 15:45 Skin: injury, laceration(s), multiple superficial on lower legs, that can be described as no foreign body, linear, with mild bleeding. 15:45 Neuro: Orientation: to person, place \T\ time. Mentation: able to follow commands, Motor: cp moves all fours, strength is normal, Gait: is steady. 16:10 ECG was reviewed by the Attending Physician. cp Vital Signs: 15:27 BP 134 / 82; Pulse 142; Resp 18; Temp 100.0(O); Pulse Ox 97% on R/A; Weight 68.04 kg; hj Height 6 ft. 2 in. (187.96 cm); 17:37 BP 116 / 81; Pulse 94; Resp 17; Pulse Ox 100% on R/A; mh5 15:27 Body Mass Index 19.26 (68.04 kg, 187.96 cm) hj Laceration: 16:45 Wound Repair of 4cm ( 1.6in ) subcutaneous laceration to left lower leg. Linear cp shaped.. Distal neuro/vascular/tendon intact. Anesthesia: Wound infiltrated with 2 mls of 1% lidocaine w/ Epi. Wound prep: Moderate cleansing by performing arts technicians, Wound irrigation by performing arts technicians. Skin closed with 3 4-0 Vicryl using simple sutures and sterile technique. Dressed with Bacitracin, Kerlix. Patient tolerated well. MDM: 15:28 Patient medically screened. cp 15:40 Differential diagnosis: superficial laceration, tendon injury, suicidal ideation, cp suicidal gesture. 17:35 Data reviewed: vital signs, nurses notes, lab test result(s), EKG, and as a result, I cp will discharge patient. 17:35 Counseling: I had a detailed discussion with the patient and/or guardian regarding: the cp historical points, exam findings, and any diagnostic results supporting the discharge/admit diagnosis, lab results, to return to the emergency department if symptoms worsen or persist or if there are any questions or concerns that arise at home. Response to treatment: the patient's symptoms have markedly improved after treatment, and as a result, I will discharge patient. ED course: VSS. Patient with history of self cutting. Denies suicidal ideations at this time and is accompanied by girlfriend. Will discharge to home for continued monitoring. 04 15:40 Order name: Acetaminophen; Complete Time: 17:34 cp 12/15 15:40 Order name: Basic Metabolic Panel; Complete Time: 17:34 cp 12/15 17:34 Interpretation: Normal except: NA 146; CL 112. cp 12/15 15:40 Order name: CBC with Diff; Complete Time: 17:25 cp 12/15 17:25 Interpretation: Normal except: WBC 4.0; MCV 88.2. cp 04 15:40 Order name: ETOH Level; Complete Time: 17:34 cp 04/ 17:34 Interpretation: Abnormal: ETOH 209. cp 12/15 15:40 Order name: Hepatic Function; Complete Time: 17:34 cp 04/ 15:40 Order name: PT-INR; Complete Time: 17:25 cp 12/15 15:36 Order name: Dressing - Wound; Complete Time: 17:46 cp 12/15 15:40 Order name: Ptt, Activated; Complete Time: 17:25 cp 12/15 15:40 Order name: Salicylate; Complete Time: 17:25 cp 12/15 15:40 Order name: EKG; Complete Time: 15:41 cp 12/15 15:36 Order name: Gloves, Sterile; Complete Time: 16:14 cp 12/15 15:36 Order name: Setup Suture Tray; Complete Time: 16:06 cp 12/15 15:36 Order name: Wound Care: please clean and irrigate wounds; Complete Time: 16:05 cp 12/15 15:40 Order name: EKG - Nurse/Tech; Complete Time: 16:08 cp 12/15 15:40 Order name: IV Saline Lock; Complete Time: 16:47 cp 12/15 15:40 Order name: Labs collected and sent; Complete Time: 16:47 cp EC:10 Rate is 96 beats/min. Rhythm is regular. NC interval is normal. QRS interval is normal. cp QT interval is normal. Interpreted by me. Reviewed by me. 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 Exp: bp 10/26/2020. Lot #: [id number]. } Route: IM; Site: right deltoid; 16:14 Follow up: Response: No adverse reaction bp 15:45 Drug: Lidocaine-Epinephrine -1%: (1:100,000) 20 ml {Note: AT B/S FOR PROVIDER.} Volume: bp 20 ml; Route: Infiltration; 16:15 Drug: NS 0.9% 1000 ml Route: IV; Rate: 1 bolus; Site: right antecubital; bp 17:46 Follow up: IV Status: Completed infusion; IV Intake: 1000ml bp Disposition: 18:00 Chart complete. cp Disposition: 12/15/18 17:39 Discharged to Home. Impression: Alcohol use, unspecified with intoxication, Laceration without foreign body of lower leg - Multiple, bilateral. - Condition is Stable. - Discharge Instructions: Alcohol Intoxication, Laceration Care, Adult. - Prescriptions for Keflex 500 mg Oral Capsule - take 1 capsule by ORAL route every 8 hours for 10 days; 30 capsule. - Medication Reconciliation Form, Thank You Letter, Antibiotic Education, Prescription Opioid Use form. - Follow up: Private Physician; When: 2 - 3 days; Reason: Wound Recheck. - Problem is new. - Symptoms have improved. Addendum: 12/18/2018 07:19 Co-signature as Attending Physician, Bryce Rowley MD I agree with the assessment and k dr plan of care. Signatures: Dispatcher [employer] EDMS Bryce Rowley MD MD [facility] Alex Duff, RN RN hj Hari Tyson PA PA cp Giacomo Sellers, RN RN bp Corrections: (The following items were deleted from the chart) 12/15 17:46 17:39 12/15/2018 17:39 Discharged to Home. Impression: Alcohol use, unspecified with bp intoxication; Laceration without foreign body of lower leg - Multiple, bilateral. Condition is Stable. Forms are Medication Reconciliation Form, Thank You Letter, Antibiotic Education, Prescription Opioid Use. Follow up: Private Physician; When: 2 - 3 days; Reason: Wound Recheck. Problem is new. Symptoms have improved. cp
--- NOTE | 2018-12-15 17:39 | ER ---
Nurse's Notes [facility] Name: Filiberto Barron Age: 23 yrs Sex: Male : 1995 Arrival Date: 12/15/2018 Time: 15:17 Bed 15 Private MD: Diagnosis: Alcohol use, unspecified with intoxication;Laceration without foreign body of lower leg-Multiple, bilateral Presentation: 12/15 15:23 Presenting complaint: Patient states: i drank 4 beers about 2 hours ago, i was walking hj and accidentally cut myself, fell on the bushes; and had cuts on both my legs;. Transition of care: patient was not received from another setting of care. Complicating Factors: There are no complicating factors for this patient. Onset of symptoms was December 15, 2018. Risk Assessment: Do you want to hurt yourself or someone else? Patient reports no desire to harm self or others. Initial Sepsis Screen: Does the patient meet any 2 criteria? Yes Does the patient have a suspected source of infection? No. Patient's initial sepsis screen is negative. Care prior to arrival: None. 15:23 Method Of Arrival: Ambulatory 15:23 Acuity: FELI 2 15:23 Note when in the room, pt states; "i did intentionally cut myself with knife on both my hj leg so i can hurt myself. Triage Assessment: 15:26 General: Appears in no apparent distress. uncomfortable, Behavior is cooperative, hj appropriate for age, drowsy, Smells of alcohol. Injury Description: Laceration. Historical: - Allergies: 15:26 No Known Allergies; hj - Home Meds: 15:26 Lorazepam Oral [Active]; hj - PMHx: 15:26 Anxiety; Depression; suicidal ideation; hj - PSHx: 15:26 None; hj - Immunization history:: Adult Immunizations up to date. - Social history:: Smoking status: Patient uses tobacco products, Patient uses alcohol. - Ebola Screening: : Patient negative for fever greater than or equal to 101.5 degrees Fahrenheit, and additional compatible Ebola Virus Disease symptoms Patient denies exposure to infectious person Patient denies travel to an Ebola-affected area in the 21 days before illness onset. Screenin:26 Abuse screen: Denies threats or abuse. Denies injuries from another. Nutritional hj screening: No deficits noted. Tuberculosis screening: No symptoms or risk factors identified. Fall Risk None identified. Assessment: 15:27 Musculoskeletal: No signs and/or symptoms reported regarding the musculoskeletal system.hj 15:30 General: Appears in no apparent distress. comfortable, slender, Behavior is bp cooperative, appropriate for age, anxious, crying, Smells of alcohol. Pain: Complains of pain in right leg and left leg. Neuro: Level of Consciousness is awake, alert, obeys commands, Oriented to person, place, time, situation, Appropriate for age. Cardiovascular: No deficits noted. Respiratory: Airway is patent Respiratory effort is even, unlabored, Respiratory pattern is regular, symmetrical. GI: No signs and/or symptoms were reported involving the gastrointestinal system. : No signs and/or symptoms were reported regarding the genitourinary system. EENT: No deficits noted. Derm: No deficits noted. Injury Description: Laceration is superficial, not bleeding. 17:43 Reassessment: PT D/C HOME AMBULATORY WITH FAMILY, DX WITH ALCOHOL INTOXICATION AND MX bp LACERATIONS. Vital Signs: 15:27 BP 134 / 82; Pulse 142; Resp 18; Temp 100.0(O); Pulse Ox 97% on R/A; Weight 68.04 kg; hj Height 6 ft. 2 in. (187.96 cm); 17:37 BP 116 / 81; Pulse 94; Resp 17; Pulse Ox 100% on R/A; mh5 15:27 Body Mass Index 19.26 (68.04 kg, 187.96 cm) ED Course: 15:17 Patient arrived in ED. as 15:25 Triage completed. hj 15:27 Arm band placed on left wrist. hj 15:27 Patient has correct armband on for positive identification. Placed in gown. Bed in low hj position. Call light in reach. Side rails up X 1. 15:28 Hari Tyson PA is PHCP. cp 15:28 Bryce Rowley MD is Attending Physician. cp 15:37 Giacomo Sellers, COLUMBA is Primary Nurse. bp 16:05 EKG done, by certified technician specialist. reviewed by Hari VILLASEÑOR. sm3 16:40 Initial lab(s) drawn, by nh, sent to lab. Inserted saline lock: 20 gauge in right lt1 antecubital area, using aseptic technique. 16:45 Assist provider with laceration repair on left leg and right leg using sutures. Set up bp tray. Performed by Hari VILLASEÑOR Dressed with Neosporin, Patient tolerated well. 17:00 Wound care: to laceration located on left leg and right leg was dressed with Neosporin, bp Patient tolerated well. 17:44 IV discontinued, intact, bleeding controlled, No redness/swelling at site. Pressure bp dressing applied. 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 Exp: bp 10/26/2020. Lot #: [id number]. } Route: IM; Site: right deltoid; 16:14 Follow up: Response: No adverse reaction bp 15:45 Drug: Lidocaine-Epinephrine -1%: (1:100,000) 20 ml {Note: AT B/S FOR PROVIDER.} Volume: bp 20 ml; Route: Infiltration; 16:15 Drug: NS 0.9% 1000 ml Route: IV; Rate: 1 bolus; Site: right antecubital; bp 17:46 Follow up: IV Status: Completed infusion; IV Intake: 1000ml bp Intake: 17:46 IV: 1000ml; Total: 1000ml. bp Outcome: 17:39 Discharge ordered by MD. cp 17:45 Discharged to home ambulatory, with family. bp 17:45 Condition: stable 17:45 Discharge instructions given to patient, Instructed on discharge instructions, follow up and referral plans. medication usage, wound care, Demonstrated understanding of instructions, follow-up care, medications, wound care, Prescriptions given X 1. 17:46 Patient left the ED. bp Signatures: Shanon Lopez Henry RN RN Hari Wolfe PA PA cp Martinez, Maria 5 Giacomo Sellers RN RN Lana Daly 3 Marquita White 1 Corrections: (The following items were deleted from the chart) 15:25 15:23 Acuity: FELI 2 hj hj 15:36 15:23 Acuity: FELI 3 hj hj
--- NOTE | 2018-12-19 11:27 | EKG ---
Test Date: 2018-12-15 Test Time: 16:01:02 Advanced Quality Engineer: SAM MEASUREMENT RESULTS: Intervals: Rate: 96 IL: 150 QRSD: 72 QT: 316 QTc: 399 [place]: P: 79 IL: 150 QRS: 46 T: 44 INTERPRETIVE STATEMENTS: Normal sinus rhythm Normal ECG Compared to ECG 05/27/2018 03:00:43 No significant changes Electronically Signed On 12-15-18 18:21:19 CDT by Justus Purcell
== END 2018-12-15 17:46 | disposition home or self-care (01) ==
LOC: ER 15:15
PROC: 0JQP0ZZ Repair Left Lower Leg Subcutaneous Tissue and Fascia, Open Approach (ICD-10-PCS; principal; 2018-12-15)
DX: S81.812A Laceration without foreign body, left lower leg, initial encounter (principal); S81.811A Laceration without foreign body, right lower leg, initial encounter; X78.9XXA Intentional self-harm by unspecified sharp object, initial encounter; Y92.009 Unspecified place in unspecified non-institutional (private) residence as the place of occurrence of the external cause; F10.929 Alcohol use, unspecified with intoxication, unspecified; F41.9 Anxiety disorder, unspecified; F32.9 Major depressive disorder, single episode, unspecified; Z72.0 Tobacco use; Z23 Encounter for immunization
CPT/HCPCS: 36415; 80048; 80076; 80320; 80329; 85025; 85610; 85730; 90714; 93005; 96360; 96361; 99284; J7030

== ENCOUNTER 2019-01-22 23:20 | Emergency (ER) | payer SELFPAY ==
--- OUTSIDE RECORDS SUMMARY | 2019-01-22 23:22 | XMS REPORT | Clinical Summary ---
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 after 01/21/2018 Results 12 LEAD EKG (07/03/2018 12:19 PM CDT) 12 LEAD EKG FOR [facility] SMS Test Date:2018-07-03 Pat Name: FILIBERTO GARZADepartment: : Gender: M Jboss Architect: MARCUS:1995 Requested By: Order Number:Reading : Anjelica Gann Measurements IntervalsAxis Rate: 66 P: -60 [place]: 131QRS: 68 QRSD: 78 T: 38 QT: [...] MAIN-STATION 1 Specimen Blood Performing Organization Address [facility] Phone Number MISYS BT MAIN-STATION 1 UA CHEMISTRIES (07/02/2018 8:15 PM CDT) Color Yellow BT MAIN-STATION 3 Clarity Clear BT MAIN-STATION 3 Spec [place] 1.028 1.001 - 1.035 BT MAIN-STATION 3 [...] MAIN-STATION 3 Specimen Urine Performing Organization Address [facility] Phone Number MISYS BT MAIN-STATION 3 URINE DRUG SCREEN (07/02/2018 8:15 PM CDT) Amphetamine Positive (A) NEG BT MAIN-STATION 1 Comment: Calibrated Standard: D-Methamphetamine Positive if urine level >gj=3279 ng/mL Test performed on [id number] using EMIT Immunoassay Barbiturate Negative NEG BT MAIN-STATION 1 Comment: Calibrated Standard: Secobarbital Positive if urine level is >pu=609 ng/mL Test performed on [id number] using EMIT Immunoassay Benzodiazepine Positive (A) NEG BT MAIN-STATION 1 Comment: Calibrated Standard: Lormethazepam Positive if urine level is >ts=552 ng/mL Test performed on [id number] using EMIT Immunoassay Cannabinoid Positive (A) NEG BT MAIN-STATION 1 Comment: Calibrated Standard: 11 nor-delta(9)-THC carboxylic a Positive if urine level >or=50 Test performed on [id number] using EMIT Immunoassay Cocaine Negative NEG BT MAIN-STATION 1 Comment: Calibrated Standard: Benzoylecgonine Positive if urine level >ok=787 Test performed on [id number] using EMIT Immunoassay Opiate, Ur Negative NEG BT MAIN-STATION 1 Comment: Calibrated Standard: Morphine Positive if urine level >js=944 Test performed on [id number] using EMIT Immunoassay PCP Negative NEG BT MAIN-STATION 1 Comment: Calibrated Standard: Phencyclidine Positive if urine level >or=25 Test performed on [id number] using EMIT Immunoassay Urine Toxicology Screen results are to be used only for Medical purposes. Specimen Urine Performing Organization Address City/State/Zipcode Phone Number MISYS BT MAIN-STATION 1 after 01/21/2018 Insurance Payer Benefit Plan / Subscriber ID Effective Phone Address Type Group Dates [facility] xxxxxxxxxxxx 2017-Prese [phone] HEALTH CHOICE STRATEGIES [id number] [place] [address] [facility] xxxxxxxxxxxx 2017-Prese [phone] HEALTH CHOICE CHOICE nt [phone] [place] [address] Advance Directives For more information, please contact:[place] [address] Code Status Date Activated Date Inactivated Comments Full Code 07/03/2018 1:11 PM 07/06/2018 5:46 PM
--- OUTSIDE RECORDS SUMMARY | 2019-01-22 23:22 | XMS REPORT | Clinical Summary ---
:1995 Author Organization [facility] Address [address] [place] [address] Care Team Providers Name Role Phone Asked, [...] Not on file Results Not on fileafter 01/21/2018 Advance Directives Patient has advance care planning documents on file. For more information, please contact:[facility] [place] [address]
--- OUTSIDE RECORDS SUMMARY | 2019-01-22 23:23 | XMS REPORT ---
:1995 [facility] Address [address] [place] [address] Care Team Providers Name Role Phone UNKNOWN, REFFERING Primary Care Provider Unavailable FLORECITA STAFFORD M.D. Unavailable Unavailable Problems This patient has no known problems. Allergies, Adverse Reactions, Alerts This patient has no known allergies or adverse reactions. Medications This patient has no known medications. Encounters Start End Encounter Admission Attending Care Care Encounter Date/Time Date/Time Type Type Clinicians Facility Department ID 2018-07-03 Inpatient [facility] [id number] 12:20:26 2018-08-07 2018-08-07 Outpatient [facility] [id number] 00:00:00 00:00:00 2018-07-20 2018-07-20 Outpatient [facility] [id number] 00:00:00 00:00:00 2018-07-06 2018-07-06 Outpatient [facility] [id number] 13:20:50 13:20:50 2018-07-03 2018-07-03 Outpatient [facility] [id number] 15:53:01 15:53:01 2018-07-02 2018-07-02 Emergency [facility] [id number] 20:10:38 20:10:38 Results Test Description Test Time [...] race is not provided, and the patient isAfrican-Sammarinese, multiply by 1.212. If sex is not provided, and thepatient is female, multiply by 0.742. Results for patients <18 years ofage have not been validated by the MDRD study and should be interpretedwith caution.eGFR Result Interpretation:eGFR > or=60 is in the Normal RangeeGFR < 60 may mean kidney diseaseeGFR < 15 may mean kidney failureRanges recommended by the National Kidney Foundation,http://nkdep.nih.go v RPR, [id number] 12:15:00 Test Item Value Reference Range Comments RPR (test code=RPR) Non-Reactive Non-Reactive Lipid [id number] 11:22:00 Test Item Value Reference Range Comments Cholesterol (test 149 mg/dL 0-200 code=CHOL) Triglycerides (test 125 mg/dL 9-200 code=TRIG) HDL (test code=HDL) 51 mg/dL 40-60 Chol/HDL (test 2.9 Ratio 0.0-5.0 code=CHOLPHDL) LDL, Calculated (test 73 0-130 (NOTE)RISK OF HEART code=LDLC) DISEASEPublished by Sammarinese Heart AssociationAnalyte Optimal Boderline Increased RiskCHOL <200 200-239 >240TRIG <150 150-199 >200HDL Male: >60 <40HDL Female: >60 <50LDL <100 130-159 >160LDL NEAR OPTIMAL IS 100-129 VLDL (test code=VLDL) 25 mg/dL 5-40 LDL/HDL (test code=LDLPHDL) 1 Thyroid Stimulating Hormone (TSH)2017-07-28 08:55:00 Test Item Value Reference Range Comments TSH (test code=TSH) 2.44 mIU/mL 0.270-4.200
--- NOTE | 2019-01-22 23:46 | ER ---
Nurse's Notes [facility] Name: Filiberto Barron Age: 23 yrs Sex: Male : 1995 Arrival Date: 01/22/2019 Time: 23:25 Bed 16 Private MD: Diagnosis: Abrasion of left forearm;Abrasion of right forearm Presentation: 01/22 23:25 Presenting complaint: Patient states: he was trying to jump over a fence and scratched aa1 his vandana forearms and was also scratched by a cat multiple times. Multiple superficial lacerations noted to palmar aspect of vandana forearms with no active bleeding noted. Pt denies intention of harming himself or others. Reports receiving a tetanus shot 2 months ago. Transition of care: patient was not received from another setting of care. Complicating Factors: There are no complicating factors for this patient. Onset of symptoms was January 22, 2019. Risk Assessment: Do you want to hurt yourself or someone else? Patient reports no desire to harm self or others. Initial Sepsis Screen: Does the patient meet any 2 criteria? No. Patient's initial sepsis screen is negative. Does the patient have a suspected source of infection? No. Patient's initial sepsis screen is negative. Care prior to arrival: None. 23:25 Method Of Arrival: EMS: [facility] aa1 23:25 Acuity: FELI 5 aa1 Historical: - Allergies: 23:39 No Known Allergies; aa1 - Home Meds: 23:39 None [Active]; aa1 - PMHx: 23:39 Anxiety; Depression; suicidal ideation; aa1 - PSHx: 23:39 None; aa1 - Immunization history:: Last tetanus immunization: November 2018. - Social history:: Smoking status: Patient uses tobacco products, denies chronic smoking, but will smoke occasionally. - Ebola Screening: : No symptoms or risks identified at this time. Screenin:25 Abuse screen: Denies threats or abuse. Denies injuries from another. Nutritional aa1 screening: No deficits noted. Tuberculosis screening: No symptoms or risk factors identified. Fall Risk None identified. Assessment: 23:25 General: Appears in no apparent distress. comfortable, slender, Behavior is calm, aa1 cooperative, appropriate for age. Pain: Denies pain. Neuro: Level of Consciousness is awake, alert, obeys commands, Oriented to person, place, time, situation, Moves all extremities. Full function Gait is steady. Respiratory: Airway is patent Respiratory effort is even, unlabored, Respiratory pattern is regular, symmetrical. GI: No signs and/or symptoms were reported involving the gastrointestinal system. : No signs and/or symptoms were reported regarding the genitourinary system. EENT: No signs and/or symptoms were reported regarding the EENT system. Derm: Skin is intact, is healthy with good turgor, Skin is pink, warm \T\ dry. Musculoskeletal: Circulation, motion, and sensation intact. Capillary refill < 3 seconds, Range of motion: intact in all extremities. Injury Description: Laceration sustained to palmar aspect of right forearm and palmar aspect of left forearm is superficial, not bleeding. Vital Signs: 23:25 BP 149 / 103; Pulse 103; Resp 18; Temp 98.5; Pulse Ox 99% on R/A; Weight 68.04 kg; aa1 Height 6 ft. 3 in. (190.50 cm); Pain 0/10; 23:25 Body Mass Index 18.75 (68.04 kg, 190.50 cm) aa1 ED Course: 23:25 Patient arrived in ED. bb 23:25 Arm band placed on right wrist. aa1 23:25 Patient has correct armband on for positive identification. Bed in low position. Pulse aa1 ox on. NIBP on. 23:25 No provider procedures requiring assistance completed. Patient did not have IV access aa1 during this emergency room visit. 23:26 Jeff Roberto MD is Attending Physician. tw4 23:34 Cathy Villagran RN is Primary Nurse. aa1 23:38 Triage completed. aa1 Administered Medications: No medications were administered Outcome: 23:31 Discharge ordered by . tw4 23:45 Discharged to home ambulatory, with friend. aa1 23:45 Condition: good 23:45 Discharge instructions given to patient, Instructed on discharge instructions, follow up and referral plans. wound care, Demonstrated understanding of instructions, follow-up care, wound care. 23:45 Patient left the ED. aa1 Signatures: Cathy Villagran RN RN aa1 Kailee Latham RN RN bb Jeff Roberto MD MD tw4
--- NOTE | 2019-01-23 23:51 | EDPHYS ---
Physician Documentation [facility] Name: Filiberto Barron Age: 23 yrs Sex: Male : 1995 Arrival Date: 01/22/2019 Time: 23:25 Bed 16 Private MD: ED Physician Jeff Roberto HPI: 01/23 06:40 This 23 yrs old Male presents to ER via EMS with complaints of Laceration To tw4 Arm. 06:40 The patient has a laceration occurred outdoors, and there are no complicating factors. tw4 The laceration(s) is(are) located on the right arm and left arm. Onset: The symptoms/episode began/occurred today. Associated signs and symptoms: The patient has no apparent associated signs or symptoms. The patient has not experienced similar symptoms in the past. Historical: - Allergies: 01/22 23:39 No Known Allergies; aa1 - Home Meds: 23:39 None [Active]; aa1 - PMHx: 23:39 Anxiety; Depression; suicidal ideation; aa1 - PSHx: 23:39 None; aa1 - Immunization history:: Last tetanus immunization: November 2018. - Social history:: Smoking status: Patient uses tobacco products, denies chronic smoking, but will smoke occasionally. - Ebola Screening: : No symptoms or risks identified at this time. ROS: 01/23 06:40 Constitutional: Negative for fever, chills, and weight loss, Eyes: Negative for injury, tw4 pain, redness, and discharge, Cardiovascular: Negative for chest pain, palpitations, and edema, Respiratory: Negative for shortness of breath, cough, wheezing, and pleuritic chest pain, Abdomen/GI: Negative for abdominal pain, nausea, vomiting, diarrhea, and constipation, Back: Negative for injury and pain, Skin: Negative for injury, rash, and discoloration. MS/extremity: Positive for laceration. Exam: 06:40 Constitutional: This is a well developed, well nourished patient who is awake, alert, tw4 and in no acute distress. Chest/axilla: Normal chest wall appearance and motion. Nontender with no deformity. No lesions are appreciated. Cardiovascular: Regular rate and rhythm with a normal S1 and S2. No gallops, murmurs, or rubs. Normal PMI, no JVD. No pulse deficits. Respiratory: Lungs have equal breath sounds bilaterally, clear to auscultation and percussion. No rales, rhonchi or wheezes noted. No increased work of breathing, no retractions or nasal flaring. Abdomen/GI: Soft, non-tender, with normal bowel sounds. No distension or tympany. No guarding or rebound. No evidence of tenderness throughout. Back: No spinal tenderness. No costovertebral tenderness. Full range of motion. 06:40 MS/ Extremity: Pulses equal, no cyanosis. Neurovascular intact. Full, normal range tw4 of motion. Neuro: Awake and alert, GCS 15, oriented to person, place, time, and situation. Cranial nerves II-XII grossly intact. Motor strength 5/5 in all extremities. Sensory grossly intact. Cerebellar exam normal. Normal gait. Psych: Awake, alert, with orientation to person, place and time. Behavior, mood, and affect are within normal limits. Vital Signs: 01/22 23:25 BP 149 / 103; Pulse 103; Resp 18; Temp 98.5; Pulse Ox 99% on R/A; Weight 68.04 kg; aa1 Height 6 ft. 3 in. (190.50 cm); Pain 0/10; 23:25 Body Mass Index 18.75 (68.04 kg, 190.50 cm) aa1 MDM: 23:27 Patient medically screened. tw4 01/23 06:40 Differential diagnosis: superficial laceration, tendon injury. Data reviewed: vital tw4 signs, nurses notes. Data interpreted: Pulse oximetry:. Counseling: I had a detailed discussion with the patient and/or guardian regarding: the historical points, exam findings, and any diagnostic results supporting the discharge/admit diagnosis. Special discussion: I discussed with the patient/guardian in detail that at this point there is no indication for admission to the hospital. It is understood, however, that if the symptoms persist or worsen the patient needs to return immediately for re-evaluation. Administered Medications: No medications were administered Disposition: 01/22/19 23:31 Discharged to Home. Impression: Abrasion of left forearm, Abrasion of right forearm. - Condition is Stable. - Discharge Instructions: Abrasion, Laceration Care, Adult. - Medication Reconciliation Form, Thank You Letter, Antibiotic Education, Prescription Opioid Use form. - Follow up: Private Physician; When: Upon discharge from the Emergency Department; Reason: If symptoms return, Recheck today's complaints, Continuance of care. - Problem is new. - Symptoms have improved. Signatures: Cathy Villagran RN RN aa1 Jeff Roberto MD MD tw4 Corrections: (The following items were deleted from the chart) 01/22 23:45 23:31 01/22/2019 23:31 Discharged to Home. Impression: Abrasion of left forearm; aa1 Abrasion of right forearm. Condition is Stable. Forms are Medication Reconciliation Form, Thank You Letter, Antibiotic Education, Prescription Opioid Use. Follow up: Private Physician; When: Upon discharge from the Emergency Department; Reason: If symptoms return, Recheck today's complaints, Continuance of care. Problem is new. Symptoms have improved. tw4
== END 2019-01-22 23:45 | disposition home or self-care (01) ==
LOC: ER 23:20
DX: S50.812A Abrasion of left forearm, initial encounter (principal); S50.811A Abrasion of right forearm, initial encounter; F41.9 Anxiety disorder, unspecified; F32.9 Major depressive disorder, single episode, unspecified; Z72.0 Tobacco use
CPT/HCPCS: 99283

== ENCOUNTER 2019-01-27 02:17 | Emergency (ER) | payer SELFPAY ==
--- OUTSIDE RECORDS SUMMARY | 2019-01-27 02:19 | XMS REPORT ---
:1995 [facility] Address [address] [place] [address] Care Team Providers Name Role Phone UNKNOWN, REFFERING Primary Care Provider Unavailable FLORECITA STAFFORD M.D. Unavailable Unavailable Problems This patient has no known problems. Allergies, Adverse Reactions, Alerts This patient has no known allergies or adverse reactions. Medications This patient has no known medications. Encounters Start End Encounter Admission Attending Care Care Encounter Date/Time Date/Time Type Type Clinicians Facility Department ID 2018-07-03 Inpatient [facility] [id number] 12:20:26 2019-01-24 2019-01-24 Emergency E [facility] MED [id number] 13:05:00 13:05:00 2018-08-07 2018-08-07 Outpatient [facility] [id number] 00:00:00 00:00:00 2018-07-20 2018-07-20 Outpatient [facility] [id number] 00:00:00 00:00:00 2018-07-06 2018-07-06 Outpatient [facility] [id number] 13:20:50 13:20:50 2018-07-03 2018-07-03 Outpatient [facility] [id number] 15:53:01 15:53:01 2018-07-02 2018-07-02 Emergency [facility] [id number] 20:10:38 20:10:38 Results Test Description Test Time [...] race is not provided, and the patient isAfrican-German, multiply by 1.212. If sex is not provided, and thepatient is female, multiply by 0.742. Results for patients <18 years ofage have not been validated by the MDRD study and should be interpretedwith caution.eGFR Result Interpretation:eGFR > or=60 is in the Normal RangeeGFR < 60 may mean kidney diseaseeGFR < 15 may mean kidney failureRanges recommended by the National Kidney Foundation,http://nkdep.nih.go v RPR, [id number] 12:15:00 Test Item Value Reference Range Comments RPR (test code=RPR) Non-Reactive Non-Reactive Lipid [id number] 11:22:00 Test Item Value Reference Range Comments Cholesterol (test 149 mg/dL 0-200 code=CHOL) Triglycerides (test 125 mg/dL 9-200 code=TRIG) HDL (test code=HDL) 51 mg/dL 40-60 Chol/HDL (test 2.9 Ratio 0.0-5.0 code=CHOLPHDL) LDL, Calculated (test 73 0-130 (NOTE)RISK OF HEART code=LDLC) DISEASEPublished by German Heart AssociationAnalyte Optimal Boderline Increased RiskCHOL <200 200-239 >240TRIG <150 150-199 >200HDL Male: >60 <40HDL Female: >60 <50LDL <100 130-159 >160LDL NEAR OPTIMAL IS 100-129 VLDL (test code=VLDL) 25 mg/dL 5-40 LDL/HDL (test code=LDLPHDL) 1 Thyroid Stimulating Hormone (TSH)2017-07-28 08:55:00 Test Item Value Reference Range Comments TSH (test code=TSH) 2.44 mIU/mL 0.270-4.200
--- OUTSIDE RECORDS SUMMARY | 2019-01-27 02:19 | XMS REPORT | Clinical Summary ---
:1995 Author Organization [facility] Address [address] [place] [address] Care Team Providers Name Role Phone Asked, [...] Not on file Results Not on fileafter 01/26/2018 Advance Directives Patient has advance care planning documents on file. For more information, please contact:[facility] [place] [address]
--- OUTSIDE RECORDS SUMMARY | 2019-01-27 02:19 | XMS REPORT | Clinical Summary ---
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: MARCUS:1995 Requested By: Order Number:Reading : Anjelica Gann Measurements IntervalsAxis Rate: 66 P: -60 AK: 131QRS: 68 QRSD: 78 T: 38 QT: [...] MAIN-STATION 1 Specimen Blood Performing Organization Address [facility] Phone Number MISYS BT MAIN-STATION 1 UA CHEMISTRIES (07/02/2018 8:15 PM CDT) Color Yellow BT MAIN-STATION 3 Clarity Clear BT MAIN-STATION 3 Spec [place] 1.028 1.001 - 1.035 BT MAIN-STATION 3 [...] MAIN-STATION 3 Specimen Urine Performing Organization Address [facility] Phone Number MISYS BT MAIN-STATION 3 URINE DRUG SCREEN (07/02/2018 8:15 PM CDT) Amphetamine Positive (A) NEG BT MAIN-STATION 1 Comment: Calibrated Standard: D-Methamphetamine Positive if urine level >ze=3753 ng/mL Test performed on [id number] using EMIT Immunoassay Barbiturate Negative NEG BT MAIN-STATION 1 Comment: Calibrated Standard: Secobarbital Positive if urine level is >qf=302 ng/mL Test performed on [id number] using EMIT Immunoassay Benzodiazepine Positive (A) NEG BT MAIN-STATION 1 Comment: Calibrated Standard: Lormethazepam Positive if urine level is >jv=565 ng/mL Test performed on [id number] using EMIT Immunoassay Cannabinoid Positive (A) NEG BT MAIN-STATION 1 Comment: Calibrated Standard: 11 nor-delta(9)-THC carboxylic a Positive if urine level >or=50 Test performed on [id number] using EMIT Immunoassay Cocaine Negative NEG BT MAIN-STATION 1 Comment: Calibrated Standard: Benzoylecgonine Positive if urine level >cu=618 Test performed on [id number] using EMIT Immunoassay Opiate, Ur Negative NEG BT MAIN-STATION 1 Comment: Calibrated Standard: Morphine Positive if urine level >jk=054 Test performed on [id number] using EMIT Immunoassay PCP Negative NEG BT MAIN-STATION 1 Comment: Calibrated Standard: Phencyclidine Positive if urine level >or=25 Test performed on [id number] using EMIT Immunoassay Urine Toxicology Screen results are to be used only for Medical purposes. Specimen Urine Performing Organization Address City/State/Zipcode Phone Number MISYS BT MAIN-STATION 1 after 01/26/2018 Insurance Payer Benefit Plan / Subscriber ID Effective Phone Address Type Group Dates [facility] xxxxxxxxxxxx 2017-Prese [phone] HEALTH CHOICE STRATEGIES [id number] [place] [address] [facility] xxxxxxxxxxxx 2017-Prese [phone] HEALTH CHOICE CHOICE nt [phone] [employer] [place] [address] Advance Directives For more information, please contact:[place] [address] Code Status Date Activated Date Inactivated Comments Full Code 07/03/2018 1:11 PM 07/06/2018 5:46 PM
[2019-01-27 03:00] LABS: Absolute Monocytes 0.7 K/uL (0.1-1.3); Basophils % 0.4 % (0-1.3); Eosinophils % 0.8 % (0-4.4); Hematocrit 42.1 % (39.6-49.0); Lymphocytes % 29.8 % (15.3-44.8); MPV 9.8 fL (7.6-11.3); RBC Red Blood Cell Count 4.91 M/uL (4.33-5.43)
[2019-01-27 03:10] LABS: Urine Blood NEGATIVE (NEG); Urine Glucose NEGATIVE (NEG); Urine Protein NEGATIVE (NEG)
[2019-01-27 03:27] LABS: ALT/SGPT 20 U/L (12-78); AST/SGOT 23 U/L (15-37); Albumin 4.6 g/dL (3.4-5.0); Alkaline Phosphatase 63 U/L (45-117); BUN Blood Urea Nitrogen 9 mg/dL (7-18); Bicarbonate 26 mmol/L (21-32); Bilirubin Direct 0.2 mg/dL (0-0.2); Bilirubin Total 0.5 mg/dL (0.2-1.0); Glucose Level 94 mg/dL (74-106); Potassium 4.1 mmol/L (3.5-5.1); Protein, Total 7.8 g/dL (6.4-8.2); Sodium Level 142 mmol/L (136-145)
[2019-01-27 03:27] LABS: Barbiturates NEGATIVE (NEGATIVE); Benzodiazepines POSITIVE (NEGATIVE); Cocaine NEGATIVE (NEGATIVE); METHAMPHETAM NEGATIVE (NEGATIVE); Methadone NEGATIVE (NEGATIVE); Opiates NEGATIVE (NEGATIVE); Phencyclidine NEGATIVE (NEGATIVE); THC Cannibis POSITIVE (NEGATIVE)
--- NOTE | 2019-01-27 13:49 | EDPHYS ---
Physician Documentation [facility] Name: Filiberto Barron Age: 23 yrs Sex: Male : 1995 Arrival Date: 01/27/2019 Time: 02:21 Bed 19 Private MD: ED Physician Jeff Roberto HPI: 01/27 04:01 This 23 yrs old Male presents to ER via Ambulatory with complaints of tw4 Laceration To Arm. 04:01 The patient presents to the emergency department with depression, over unknown tw4 circumstances, suicide ideation. Onset: The symptoms/episode began/occurred today. Past psychiatric history: the patient has had a prior suicide gesture, where the patient cut wrists. Associated signs and symptoms: The patient has no apparent associated signs or symptoms. The patient has a laceration occurred on a street or driveway. Associated signs and symptoms: Pertinent negatives: deformity, dizziness, heavy bleeding, loss of consciousness, numbness distal to injury. Historical: - Allergies: 02:51 No Known Allergies; bb - Home Meds: 02:51 None [Active]; bb - PMHx: 02:51 Anxiety; Depression; suicidal ideation; bb - PSHx: 02:51 None; bb - Immunization history:: Adult Immunizations up to date, Last tetanus immunization: up to date. - Social history:: Smoking status: Patient uses tobacco products, denies chronic smoking, but will smoke occasionally, Patient uses alcohol, on a daily basis. street drugs, marijuana. - Ebola Screening: : No symptoms or risks identified at this time. ROS: 04:01 Constitutional: Negative for fever, chills, and weight loss, Eyes: Negative for injury, tw4 pain, redness, and discharge, Cardiovascular: Negative for chest pain, palpitations, and edema, Respiratory: Negative for shortness of breath, cough, wheezing, and pleuritic chest pain, Abdomen/GI: Negative for abdominal pain, nausea, vomiting, diarrhea, and constipation, Back: Negative for injury and pain, Skin: Negative for injury, rash, and discoloration. 04:01 MS/extremity: Positive for injury or acute deformity. Exam: 03:57 Constitutional: This is a well developed, well nourished patient who is awake, alert, tw4 and in no acute distress. Head/Face: Normocephalic, atraumatic. Chest/axilla: Normal chest wall appearance and motion. Nontender with no deformity. No lesions are appreciated. Cardiovascular: Regular rate and rhythm with a normal S1 and S2. No gallops, murmurs, or rubs. Normal PMI, no JVD. No pulse deficits. Respiratory: Lungs have equal breath sounds bilaterally, clear to auscultation and percussion. No rales, rhonchi or wheezes noted. No increased work of breathing, no retractions or nasal flaring. Abdomen/GI: Soft, non-tender, with normal bowel sounds. No distension or tympany. No guarding or rebound. No evidence of tenderness throughout. 03:57 Neuro: Awake and alert, GCS 15, oriented to person, place, time, and situation. Cranial nerves II-XII grossly intact. Motor strength 5/5 in all extremities. Sensory grossly intact. Cerebellar exam normal. Normal gait. 03:57 Musculoskeletal/extremity: Extremities: noted in the dorsal aspect of right forearm: abrasion, noted in the dorsal aspect of left forearm: abrasion. Vital Signs: 02:51 BP 116 / 72; Pulse 110; Resp 16 S; Temp 98.4(O); Pulse Ox 97% on R/A; Weight 68.04 kg bb (R); Height 6 ft. 2 in. (187.96 cm) (R); Pain 0/10; 07:20 BP 115 / 77; Pulse 75; Resp 18; Temp 98.0(O); Pulse Ox 100% on R/A; Pain 0/10; mh5 11:30 BP 126 / 74; Pulse 78; Resp 18; Pulse Ox 100% ; em5 11:30 Pain 0/10; em5 14:44 BP 120 / 78; Pulse 72; Resp 16; Temp 97.8(O); Pulse Ox 100% on R/A; mh5 02:51 Body Mass Index 19.26 (68.04 kg, 187.96 cm) bb MDM: 02:41 Patient medically screened. tw4 07:31 Differential diagnosis: superficial laceration, tendon injury, vascular injury. Data tw4 reviewed: vital signs, nurses notes. Data interpreted: Pulse oximetry: is not applicable for this patient encounter. Other consultation: cinder worker was called and will evaluate the patient's circumstances. ED course: Pt awaiting psych placement. 08:26 ED course: Reevaluated patient just a few minutes ago. Patient resting comfortably and jr8 VS stable. Still very depressed and is experiencing suicidal thoughts. Still wants to voluntarily be transferred for psychiatric evaluation . 01/27 02:42 Order name: Acetaminophen [facility] 01/27 02:42 Order name: Basic Metabolic Panel [facility] 01/27 02:42 Order name: CBC with Diff 01/27 02:42 Order name: ETOH Level [facility] 01/27 02:42 Order name: Hepatic Function [facility] 01/27 02:42 Order name: PT-INR; Complete Time: 08:32 [facility] 01/27 02:42 Order name: Ptt, Activated; Complete Time: 08:32 [facility] 01/27 02:42 Order name: Salicylate; Complete Time: 08:32 [facility] 01/27 02:42 Order name: Urine Drug Screen; Complete Time: 08:32 [facility] 01/27 02:43 Order name: Acetaminophen Level; Complete Time: 08:32 [facility] 01/27 02:43 Order name: Basic Metabolic Panel; Complete Time: 08:32 [facility] 01/27 02:43 Order name: CBC with Automated Diff; Complete Time: 08:32 [facility] 01/27 02:43 Order name: Alcohol Serum/Plasma; Complete Time: 08:32 [facility] 01/27 02:43 Order name: Liver (Hepatic) Function; Complete Time: 08:32 [facility] 01/27 02:42 Order name: EKG; Complete Time: 02:43 [facility] 01/27 02:42 Order name: EKG - Nurse/Tech; Complete Time: 03:14 [facility] 01/27 02:42 Order name: Labs collected and sent; Complete Time: 03:14 [facility] 01/27 02:42 Order name: Urine Dipstick-Ancillary (obtain specimen); Complete Time: 03:14 [facility] 01/27 03:07 Order name: Urine Dipstick--Ancillary (enter results); Complete Time: 08:32 01/27 07:09 Order name: Diet Regular; Complete Time: 07:10 5 01/27 10:04 Order name: Diet Regular; Complete Time: 10:05 mh5 EC:57 Rate is 103 beats/min. Rhythm is regular, Sinus tachycardia. QRS [place] is Normal. [place] tw4 interval is normal. QRS interval is normal. QT interval is normal. T waves are Normal. No ST changes noted. Clinical impression: Sinus tachycardia. Interpreted by me. Reviewed by me. Administered Medications: No medications were administered Disposition: 01/27/19 13:48 Transfer ordered to Psych Facility. Diagnosis is Suicidal ideations. - Reason for transfer: Higher level of care. - Accepting physician is wendy. - Condition is Stable. - Problem is new. - Symptoms have improved. Addendum: 01/29/2019 06:44 Co-signature as Attending Physician, Jeff Roberto MD I agree with the assessment and t w4 plan of care. Signatures: Dispatcher [employer] EDBaljit Avelar, CARD CLEANER CARD CLEANER Kailee Carvalho, COLUMBA RN Cem Bowens PA PA jr8 Lc Wolff MD MD gs Wadley, Terrence, MD MD tw4 Corrections: (The following items were deleted from the chart) 01/27 03:43 02:42 IV Saline Lock ordered. 14:53 13:48 01/27/2019 13:48 Transfer ordered to Psych Facility. Diagnosis is Suicidal em ideations. Reason for transfer: Higher level of care. Accepting physician is wendy. Condition is Stable. Problem is new. Symptoms have improved.
--- NOTE | 2019-01-27 13:49 | ER ---
Nurse's Notes [facility] Name: Filiberto Barron Age: 23 yrs Sex: Male : 1995 Arrival Date: 01/27/2019 Time: 02:21 Bed 19 Private MD: Diagnosis: Suicidal ideations Presentation: 01/27 02:30 Presenting complaint: Patient states: he is feeling suicidal and he has a plan of bb cutting himself or overdosing on pills pt states he is suicidal intermittently all of the time he was on medication for anxiety and depression but he does not take it any longer. Pt also admits to alcohol and drug abuse. Pt has multiple linear superficial lacerations in various stages of healing on his forearms and multiple well healed lacerations to his legs. Transition of care: patient was not received from another setting of care. Complicating Factors: There are no complicating factors for this patient. Onset of symptoms is unknown. Risk Assessment: Do you want to hurt yourself or someone else? Patient reports desire/thoughts of hurting themselves or someone else. Provider notified. Initial Sepsis Screen: Does the patient meet any 2 criteria? No. Patient's initial sepsis screen is negative. Does the patient have a suspected source of infection? No. Patient's initial sepsis screen is negative. Care prior to arrival: None. 02:30 Method Of Arrival: Ambulatory bb 02:30 Acuity: FELI 2 bb Triage Assessment: 02:43 General: Appears in no apparent distress. comfortable, Behavior is calm, cooperative, cc3 appropriate for age. Pain: Denies pain. EENT: No signs and/or symptoms were reported regarding the EENT system. Neuro: Level of Consciousness is awake, alert, obeys commands, Oriented to person, place, time, situation, Appropriate for age. Cardiovascular: Denies chest pain, Patient's skin is warm and dry. Respiratory: Airway is patent Respiratory effort is even, unlabored, Respiratory pattern is regular, symmetrical. GI: Abdomen is flat. : No signs and/or symptoms were reported regarding the genitourinary system. Derm: multiple lacerations on the arms. Musculoskeletal: Circulation, motion, and sensation intact. Range of motion: intact in all extremities. Historical: - Allergies: 02:51 No Known Allergies; bb - Home Meds: 02:51 None [Active]; bb - PMHx: 02:51 Anxiety; Depression; suicidal ideation; bb - PSHx: 02:51 None; bb - Immunization history:: Adult Immunizations up to date, Last tetanus immunization: up to date. - Social history:: Smoking status: Patient uses tobacco products, denies chronic smoking, but will smoke occasionally, Patient uses alcohol, on a daily basis. street drugs, marijuana. - Ebola Screening: : No symptoms or risks identified at this time. Screenin:43 Abuse screen: Denies threats or abuse. Denies injuries from another. Nutritional cc3 screening: No deficits noted. Tuberculosis screening: No symptoms or risk factors identified. Fall Risk Ambulatory Aid- None/Bed Rest/Nurse Assist (0 pts). Gait- Normal/Bed Rest/Wheelchair (0 pts) Mental Status- Oriented to own ability (0 pts). Assessment: 02:43 Reassessment: Patient appears in no apparent distress at this time. Patient and/or cc3 family updated on plan of care and expected duration. Pain level reassessed. Patient is alert, oriented x 3, equal unlabored respirations, skin warm/dry/pink. sitter present. 03:15 Reassessment: Patient appears in no apparent distress at this time. Patient and/or cc3 family updated on plan of care and expected duration. Pain level reassessed. Patient is alert, oriented x 3, equal unlabored respirations, skin warm/dry/pink. sitter present. no complaints noted. 04:08 Reassessment: Patient is alert, oriented x 3, equal unlabored respirations, skin lp1 warm/dry/pink. Reassessment: Fiance at bedside with patient. General: Appears in no apparent distress. Behavior is calm, cooperative. 06:30 Reassessment: Patient appears in no apparent distress at this time. Patient is alert, lp1 oriented x 3, equal unlabored respirations, skin warm/dry/pink. Reassessment: Patient aware of waiting for [facility]. General: Behavior is calm, cooperative. 07:25 Reassessment: Patient appears in no apparent distress at this time. Patient and/or em family updated on plan of care and expected duration. Pain level reassessed. Patient is alert, oriented x 3, equal unlabored respirations, skin warm/dry/pink. pt currently wants help, denies being suicidal, has hx or cutting himself on arms and legs, denies hallucinations. 08:23 Reassessment: Patient appears in no apparent distress at this time. Patient is alert, em oriented x 3, equal unlabored respirations, skin warm/dry/pink. spoke with Lima at [facility], pending doc to doc. 09:00 Reassessment: Patient is alert, oriented x 3, equal unlabored respirations, skin em5 warm/dry/pink. Patient sleeping comfortably not in distress. 10:00 Reassessment: Lying on bed awake states he does not want to eat breakfast and is okay em5 for now. General: Appears in no apparent distress. comfortable. 11:05 Reassessment: Patient is alert, oriented x 3, equal unlabored respirations, skin em5 warm/dry/pink. General: Appears in no apparent distress. comfortable. 12:10 Reassessment: Patient appears in no apparent distress at this time. Patient is alert, em5 oriented x 3, equal unlabored respirations, skin warm/dry/pink. Visitor still at bedside. Eating lunch not in distress. 13:02 Reassessment: Patient is alert, oriented x 3, equal unlabored respirations, skin em5 warm/dry/pink. General: Appears in no apparent distress. comfortable. 14:05 Reassessment: report given to COLUMBA Alex at [facility], pending transportation. em 14:15 Reassessment: Patient is alert, oriented x 3, equal unlabored respirations, skin em5 warm/dry/pink. General: Appears in no apparent distress. comfortable, Patient awaiting EMS for transfer to [facility].. 14:45 Reassessment: report given to EMS. em Psych: 02:55 Subjective: Patient's mood is sad, hopeless, Delusions are denied, Having thoughts of bb suicide. Plan for suicide is cut himself or overdose. Objective: Patient is cooperative, Speech is slow, soft, Affect is Patient has mutilated themselves by cutting forearms. Interventions: Removed personal items and placed in bag. Patient placed in hospital gown. Searched person for dangerous items. Belonging list filled out. Suicide Risk Assessment: Sad Person Scale: Sex of patient: Male: Score 1 point. Age of patient: Score 1 point if patient 15-34. Depression: Score 1 point if signs of depression are present. Previous Attempt: Score 1 point if patient has previously attempted suicide. Substance Abuse: Score 1 point if patient abuses alcohol or drugs. Rational Thinking: Score 0 point if patient has rational thinking. Social Support: Score 0 if social support is present/available. Organized Plan: Score 1 point if patient had a plan in place. TOTAL POINTS: If total points are 5-6, proposed clinical action is to strongly consider hospitalization, depending upon confidence in the follow-up arrangement. Implement suicide precautions. Safety Checks: Personal items have been removed. Door is open. Visitors are present. Patient uses of alcohol daily and marijuana. 07:20 Commitment: Patient will be a voluntary commitment. em Vital Signs: 02:51 BP 116 / 72; Pulse 110; Resp 16 S; Temp 98.4(O); Pulse Ox 97% on R/A; Weight 68.04 kg bb (R); Height 6 ft. 2 in. (187.96 cm) (R); Pain 0/10; 07:20 BP 115 / 77; Pulse 75; Resp 18; Temp 98.0(O); Pulse Ox 100% on R/A; Pain 0/10; mh5 11:30 BP 126 / 74; Pulse 78; Resp 18; Pulse Ox 100% ; em5 11:30 Pain 0/10; em5 14:44 BP 120 / 78; Pulse 72; Resp 16; Temp 97.8(O); Pulse Ox 100% on R/A; mh5 02:51 Body Mass Index 19.26 (68.04 kg, 187.96 cm) ED Course: 02:21 Patient arrived in ED. bb 02:41 Jeff Roberto MD is Attending Physician. tw4 02:43 Celia Davidson is Primary Nurse. cc3 02:43 Patient has correct armband on for positive identification. Placed in gown. Bed in low cc3 position. Call light in reach. Sitter at bedside. Cardiac monitoring not applicable on this patient. 02:50 Triage completed. bb 02:51 Arm band placed on Patient placed in an exam room, on a stretcher, on pulse oximetry. bb 03:00 Safety checks: Items removed: yes. Door open/sign placed on door: yes. Family/friend oe present: yes. Sitter present: Yes. 03:15 Safety checks: Items removed: yes. Door open/sign placed on door: yes. Family/friend oe present: yes. Sitter present: Yes. 03:30 Safety Checks: Personal items have been removed. The door is open or patient has been wh placed in a hallway bed/chair. A family member and/or friend is present and encouraged to stay. Sitter present at this time. 03:30 Safety checks: Items removed: yes. Door open/sign placed on door: yes. Family/friend oe present: yes. Sitter present: Yes. 03:30 Report given to COLUMBA Fernandez. cc3 03:45 Safety Checks: Personal items have been removed. The door is open or patient has been wh placed in a hallway bed/chair. A family member and/or friend is present and encouraged to stay. Sitter present at this time. 04:00 Safety Checks: Personal items have been removed. The door is open or patient has been wh placed in a hallway bed/chair. A family member and/or friend is present and encouraged to stay. Sitter present at this time. 04:06 Rebecca Dodd, COLUMBA is Primary Nurse. lp1 04:07 No provider procedures requiring assistance completed. Patient did not have IV access lp1 during this emergency room visit. 04:15 Safety Checks: Personal items have been removed. The door is open or patient has been wh placed in a hallway bed/chair. There are no family/friend visitors at this time Sitter present at this time. 04:30 Safety Checks: Personal items have been removed. The door is open or patient has been wh placed in a hallway bed/chair. There are no family/friend visitors at this time Sitter present at this time. 04:45 Safety Checks: Personal items have been removed. The door is open or patient has been wh placed in a hallway bed/chair. There are no family/friend visitors at this time Sitter present at this time. 05:00 Safety Checks: Personal items have been removed. The door is open or patient has been wh placed in a hallway bed/chair. There are no family/friend visitors at this time Sitter present at this time. 05:15 Safety Checks: Personal items have been removed. The door is open or patient has been wh placed in a hallway bed/chair. There are no family/friend visitors at this time Sitter present at this time. 05:30 Safety Checks: Personal items have been removed. The door is open or patient has been wh placed in a hallway bed/chair. There are no family/friend visitors at this time Sitter present at this time. 05:45 Safety Checks: Personal items have been removed. The door is open or patient has been wh placed in a hallway bed/chair. There are no family/friend visitors at this time Sitter present at this time. 06:00 Safety Checks: Personal items have been removed. The door is open or patient has been wh placed in a hallway bed/chair. There are no family/friend visitors at this time Sitter present at this time. 06:15 Safety Checks: Personal items have been removed. The door is open or patient has been wh placed in a hallway bed/chair. There are no family/friend visitors at this time Sitter present at this time. 06:30 Safety Checks: Personal items have been removed. The door is open or patient has been wh placed in a hallway bed/chair. There are no family/friend visitors at this time Sitter present at this time. 06:45 Safety Checks: Personal items have been removed. The door is open or patient has been wh placed in a hallway bed/chair. There are no family/friend visitors at this time Sitter present at this time. 07:00 Safety checks: Items removed: yes. Door open/sign placed on door: yes. Family/friend mh5 present: no. Sitter present: Yes. 07:15 Safety checks: Items removed: yes. Door open/sign placed on door: yes. Family/friend mh5 present: no. Sitter present: Yes. 07:24 fax Pt clinical's to [facility], [facility], [facility], [facility], [facility], [facility], [facility], [facility], [place], [facility], [place], [facility] at this time. 07:30 Safety checks: Items removed: yes. Door open/sign placed on door: yes. Family/friend mh5 present: no. Sitter present: Yes. 07:45 Safety checks: Items removed: yes. Door open/sign placed on door: yes. Family/friend mh5 present: no. Sitter present: Yes. 08:00 Safety checks: Items removed: yes. Door open/sign placed on door: yes. Family/friend mh5 present: no. Sitter present: Yes. 08:14 Debra from [facility] was call to send an evaluate. ms 08:15 Safety checks: Items removed: yes. Door open/sign placed on door: yes. Family/friend mh5 present: no. Sitter present: Yes. 08:15 Diet: Patient given a regular meal tray. mh5 08:21 [facility] Nurse to Nurse. ms 08:26 Cem Carter PA is PHCP. jr8 08:30 Safety checks: Items removed: yes. Door open/sign placed on door: yes. Family/friend mh5 present: yes. Sitter present: Yes. 08:45 No apparent distress. Resting quietly. Safety Checks: Personal items have been removed. em5 The door is open or patient has been placed in a hallway bed/chair. There are no family/friend visitors at this time Sitter present at this time. 09:00 Safety Checks: Personal items have been removed. There are no family/friend visitors at em5 this time Sitter present at this time. 09:15 Safety Checks: Personal items have been removed. The door is open or patient has been em5 placed in a hallway bed/chair. A family member and/or friend is present and encouraged to stay. Sitter present at this time. 09:30 Safety Checks: Personal items have been removed. The door is open or patient has been em5 placed in a hallway bed/chair. A family member and/or friend is present and encouraged to stay. Sitter present at this time. 09:45 Safety Checks: Personal items have been removed. The door is open or patient has been em5 placed in a hallway bed/chair. There are no family/friend visitors at this time Sitter present at this time. 10:00 Safety Checks: Personal items have been removed. The door is open or patient has been em5 placed in a hallway bed/chair. There are no family/friend visitors at this time Sitter present at this time. 10:15 Safety Checks: Personal items have been removed. The door is open or patient has been em5 placed in a hallway bed/chair. A family member and/or friend is present and encouraged to stay. Sitter present at this time. 10:30 Safety Checks: Personal items have been removed. The door is open or patient has been em5 placed in a hallway bed/chair. A family member and/or friend is present and encouraged to stay. Sitter present at this time. 10:45 Safety Checks: Personal items have been removed. The door is open or patient has been em5 placed in a hallway bed/chair. A family member and/or friend is present and encouraged to stay. Sitter present at this time. 11:00 Safety Checks: Personal items have been removed. The door is open or patient has been em5 placed in a hallway bed/chair. A family member and/or friend is present and encouraged to stay. Sitter present at this time. Biological Engineer from [facility] still with patient. 11:15 Safety Checks: Personal items have been removed. The door is open or patient has been em5 placed in a hallway bed/chair. A family member and/or friend is present and encouraged to stay. Sitter present at this time. 11:30 Safety Checks: Personal items have been removed. The door is open or patient has been em5 placed in a hallway bed/chair. A family member and/or friend is present and encouraged to stay. Sitter present at this time. 11:45 Safety Checks: Personal items have been removed. The door is open or patient has been em5 placed in a hallway bed/chair. A family member and/or friend is present and encouraged to stay. Sitter present at this time. 12:00 Safety Checks: Personal items have been removed. The door is open or patient has been em5 placed in a hallway bed/chair. A family member and/or friend is present and encouraged to stay. Sitter present at this time. 12:15 Safety Checks: Personal items have been removed. The door is open or patient has been em5 placed in a hallway bed/chair. A family member and/or friend is present and encouraged to stay. Sitter present at this time. 12:30 Safety Checks: Personal items have been removed. The door is open or patient has been em5 placed in a hallway bed/chair. A family member and/or friend is present and encouraged to stay. Sitter present at this time. 12:45 Safety Checks: Personal items have been removed. The door is open or patient has been em5 placed in a hallway bed/chair. A family member and/or friend is present and encouraged to stay. Sitter present at this time. 12:54 [facility] contacted, state no longer have any beds available but have the information and la1 will call if a bed becomes available. 13:00 Safety Checks: Personal items have been removed. The door is open or patient has been em5 placed in a hallway bed/chair. A family member and/or friend is present and encouraged to stay. Sitter present at this time. 13:00 [facility] states they have a male bed available, will send over exclusionary and la1 voluntary transfer paper. 13:10 Faxed Exclusionary and voluntary paperwork to janet at this time. ms 13:15 Safety checks: Items removed: yes. Door open/sign placed on door: yes. Family/friend mh5 present: yes. Sitter present: Yes. 13:30 Safety checks: Items removed: yes. Door open/sign placed on door: yes. Family/friend mh5 present: yes. Sitter present: Yes. 13:45 Safety checks: Items removed: yes. Door open/sign placed on door: yes. Family/friend mh5 present: yes. Family/friends encouraged to stay with patient. Sitter present: Yes. 14:00 Safety Checks: Personal items have been removed. The door is open or patient has been em5 placed in a hallway bed/chair. A family member and/or friend is present and encouraged to stay. Sitter present at this time. Patient for transfer. Lying on bed no distress. 14:15 Safety Checks: Personal items have been removed. The door is open or patient has been em5 placed in a hallway bed/chair. A family member and/or friend is present and encouraged to stay. Sitter present at this time. 14:30 Safety Checks: Personal items have been removed. The door is open or patient has been em5 placed in a hallway bed/chair. A family member and/or friend is present and encouraged to stay. Sitter present at this time. 14:47 Safety Checks: Personal items have been removed. The door is open or patient has been em5 placed in a hallway bed/chair. A family member and/or friend is present and encouraged to stay. Sitter present at this time. Patient fetched by EMS for transfer to [facility]. Administered Medications: No medications were administered Outcome: 13:48 ER care complete, transfer ordered by . 14:52 Transferred by ground EMS to [facility], Transfer form completed. em 14:52 Condition: stable 14:52 Instructed on the need for transfer, Demonstrated understanding of instructions. 14:53 Patient left the ED. em Signatures: Baljit Camarillo, JAVA DEVELOPER ANALYST JAVA DEVELOPER ANALYST em Kailee Latham, RN RN Rox Taylor ms, Laura, RN RN lp1 Cem Carter PA PA jr8 Emil Burris RN RN la1 Thomas Russo Maria Hernesto Godinez Gregory, MD MD gs Wadley, Terrence, MD MD tw4 Celia Davidson 3 Bailey Hadley em5
--- NOTE | 2019-01-27 14:24 | EKG ---
Test Date: 2019-01-27 Test Time: 02:47:17 Engineer And Geologist: HALLIE MEASUREMENT RESULTS: Intervals: Rate: 103 SD: 146 QRSD: 72 QT: 316 QTc: 413 Manson: P: 70 SD: 146 QRS: 37 T: 24 INTERPRETIVE STATEMENTS: Sinus tachycardia Otherwise normal ECG Compared to ECG 12/15/2018 16:01:02 Sinus rhythm no longer present Electronically Signed On 01-27-19 14:24:03 CDT by Justus Purcell
== END 2019-01-27 14:53 ==
LOC: ER 02:17
DX: R45.851 Suicidal ideations (principal); F32.9 Major depressive disorder, single episode, unspecified; Z72.0 Tobacco use
CPT/HCPCS: 36415; 80048; 80076; 80307; 80320; 80329; 81003; 85025; 85610; 85730; 93005; 99285